=== PATIENT | female | born 1950 ===

== ENCOUNTER 2019-02-25 21:24 | Inpatient (IN) | payer MEDICARE, BC ==
[~2019-02-25] VITALS: Ht 162.6 cm; Wt 78.0 kg
[~2019-02-25 21:24] MED LIST: ACTOS45 MG ORAL; ASPIRIN81 MG ORAL; BUPROPION XL150 MG ORAL; CEPHALEXIN500 M1 ORAL; CRANBERRY500 M2 PO; CRESTOR10 M1 ORAL; CYMBALTA60 MG ORAL; DIAZEPAM10 MG ORAL; GLIPIZIDE5 MG ORAL; HYDROCORTISONE 10 MG; METFORMIN HCL1000 M1 ORAL; METHOTREXATE2.5 MG PO; METOPROLOL SUC100 MG ORAL; OMEPRAZOLE40 M1 ORAL; PRIMIDONE50 MG PO
--- NOTE | 2019-02-25 23:45 | NUR ---
NURSE NOTES: Pt arrived in the unit. AAOX4. Able to make needs known. On room air. No respiratory distress. C/O R knee pain, rated 7/10. Will give pain med once there's an order. IV site is patent and intact. Belongings checked and with the pt. Skin is intact. Bed in lowest position. Bed alarm is on. Call light within reach. Will continue to monitor.
[2019-02-26] VITALS (7 sets, daily range): BP systolic 102–154; BP diastolic 59–84
--- NOTE | 2019-02-26 00:30 | NUR ---
NURSE NOTES: Contacted Dr. Villanueva for admission orders. Left a voicemail. Waiting for a call back. Charge Nurse Theresa made aware.
[2019-02-26] MEDS ORDERED: GLIPIZIDE5 MG ORAL (00:39)
[2019-02-26] MEDS ORDERED: PLAVIX75 MG ORAL (00:39)
[2019-02-26] MEDS ORDERED: MAGNESIUM OXID400 M2 PO (00:39)
[2019-02-26] MEDS ORDERED: SENNA8.6 M2 PO (00:39)
[2019-02-26] MEDS ORDERED: ATORVASTATIN CA40 MG ORAL (00:39)
[2019-02-26] MEDS ORDERED: OMEPRAZOLE40 M1 ORAL (00:39)
[2019-02-26] MEDS ORDERED: POTASSIUM99 M2 PO (00:39)
[2019-02-26] MEDS ORDERED: PROZAC40 MG ORAL (00:39)
[2019-02-26] MEDS ORDERED: METFORMIN HCL1000 M1 ORAL (00:39)
[2019-02-26] MEDS ORDERED: FOLIC ACID1 MG ORAL (00:39)
[2019-02-26] MEDS ORDERED: LOSARTAN POTASS50 MG ORAL (00:39)
[2019-02-26] MEDS ORDERED: METHOTREXATE2.5 MG PO (00:39)
[2019-02-26] MEDS ORDERED: METHENAMINE1 GM MC (00:39)
[2019-02-26] MEDS ORDERED: GABAPENTIN300 MG ORAL (00:39)
--- NOTE | 2019-02-26 04:00 | NUR ---
NURSE NOTES: Cooling measures provided.
--- NOTE | 2019-02-26 04:20 | NUR ---
NURSE NOTES: Informed Roselia, the nursing cheese supervisor, that there's no admission orders yet from Dr. Villanueva. Perlita SANTOYO called Dr. Villanueva again, still no response. Charge Nurse Theresa made aware.
[2019-02-26] MEDS ORDERED: HYDROcodone/Acetamin 5/325 tab ORAL PRN (05:15)
[2019-02-26] MEDS: NovoLOG Insulin Flexpen SUBQ SCH ×4 (06:52→21:00)
--- NOTE | 2019-02-26 07:12 | NUR ---
HAND-OFF: Report given to YARELIS Orona.
--- NOTE | 2019-02-26 08:09 | NUR ---
NURSE NOTES: Patient is awake ,alert and oriented,respirations unlabored,patient states no pain but no appetite at this time.Breakfast at bedside,will monitor.Call light within reach,bed alarm is on.
[2019-02-26] MEDS ORDERED: metFORMIN 500mg tab ORAL SCH (09:00)
[2019-02-26] MEDS: Heparin 5000 units/ml inj SUBQ SCH ×2 (09:00→21:00)
[2019-02-26] MEDS ORDERED: GlipiZIDE 5mg tab ORAL SCH (09:00)
[2019-02-26 09:02] LABS: BASOPHILS % (AUTO) 0.9 % (0.0-2.0); LYMPHOCYTES % (AUTO) 32.1 % (20.0-45.0); MEAN CORPUSCULAR VOLUME 83 FL (80-99); MONOCYTES % (AUTO) 14.5 % (1.0-10.0); NEUTROPHILS % (AUTO) 49.5 % (45.0-75.0); PLATELET COUNT 139 K/UL (150-450); RED BLOOD COUNT 4.96 M/UL (4.20-5.40); RED CELL DISTRIBUTION WIDTH 20.1 % (11.6-14.8); WHITE BLOOD COUNT 7.1 K/UL (4.8-10.8)
[2019-02-26 09:10] LABS: INR 1.1 (0.9-1.1)
[2019-02-26 09:11] LABS: ANION GAP 11 mmol/L (5-15); BLOOD UREA NITROGEN 13 mg/dL (7-18); CALCIUM 8.1 MG/DL (8.5-10.1); CARBON DIOXIDE 26 MMOL/L (21-32); CHLORIDE 98 MMOL/L (98-107); PHOSPHORUS 3.6 MG/DL (2.5-4.9); POTASSIUM 3.1 MMOL/L (3.5-5.1); SODIUM 135 MMOL/L (136-145)
[2019-02-26] MEDS: cefTRIAXone 1 GM in D5W 55 ML IVPB SCH (09:24)
[2019-02-26] MEDS: Losartan 50mg tab ORAL SCH (09:25)
--- NOTE | 2019-02-26 09:31 | NUR ---
CHARGE NURSE NOTE: K-3.1. was called, message left.
[2019-02-26 11:02] LABS: APPEARANCE,URINE CLEAR; BILIRUBIN, URINE NEGATIVE (NEGATIVE); GLUCOSE, URINE (UA) NEGATIVE (NEGATIVE); KETONES,URINE 2+ (NEGATIVE); LEUKOCYTE ESTERASE ,URINE 3+ (NEGATIVE); NITRITE,URINE NEGATIVE (NEGATIVE); PH,URINE 5 (4.5-8.0); PROTEIN,URINE 2+ (NEGATIVE); UROBILINOGEN,URINE NORMAL MG/DL (0.0-1.0)
[2019-02-26 11:09] LABS: COLOR,URINE YELLOW
--- NOTE | 2019-02-26 13:06 | Consultation ---
History of Present Illness General Date patient seen: Feb 27, 2019 Present Illness HPI 68 yo female with Hx of hypopituthyroidsm, severe RA, ( on methotrexate) HTN and DM who transferred from [place] with CC of poor appetite and nausea and vomiting. Pt c/o increased weakness and dysuria. She thinks she might have another episode of UTI. Allergies: Coded Allergies: LATEX (Verified Allergy, Intermediate, 02/26/19) Medication History Scheduled Aspirin* (Aspirin*), 81 MG ORAL DAILY, (Reported) Atorvastatin Calcium* (Atorvastatin Calcium*), 40 MG ORAL BEDTIME, (Reported) Bupropion Xl* (Bupropion Xl*), 300 MG ORAL DAILY, (Reported) Cephalexin* (Cephalexin*), 500 MG ORAL EVERY 6 HOURS, (Reported) Clopidogrel Bisulfate* (Plavix*), 75 MG ORAL DAILY, (Reported) Cranberry (Cranberry), 3,600 MG PO DAILY, (Reported) Diazepam* (Diazepam*), 5 MG ORAL EVERY 12 HOURS, (Reported) Duloxetine Hcl* (Cymbalta*), 60 MG ORAL DAILY, (Reported) Fluoxetine Hcl* (Prozac*), 40 MG ORAL DAILY, (Reported) Folic Acid* (Folic Acid*), 1 MG ORAL DAILY, (Reported) Gabapentin* (Gabapentin*), 300 MG ORAL BEDTIME, (Reported) Glipizide* (Glipizide*), 2.5 MG ORAL DAILY, (Reported) Glipizide* (Glipizide*), 5 MG ORAL BIDAC, (Reported) Hydrocortisone Tablet (Hydrocortisone), 10 MG PO BEDTIME, (Reported) Losartan Potassium* (Losartan Potassium*), 50 MG ORAL DAILY, (Reported) Magnesium Oxide (Magnesium Oxide), 200 MG PO DAILY, (Reported) Metformin Hcl* (Metformin Hcl*), 1,000 MG ORAL BID, (Reported) Metformin Hcl* (Metformin Hcl*), 1,000 MG ORAL BID, (Reported) Methenamine (Methenamine), 1 GM MC BID, (Reported) Methotrexate Sodium* (Methotrexate*), 2.5 MG PO wednesday, (Reported) Metoprolol Succinate* (Metoprolol Succinate*), 100 MG ORAL DAILY, (Reported) Omeprazole (Omeprazole), 40 MG ORAL DAILY, (Reported) Omeprazole (Omeprazole), 40 MG ORAL DAILY, (Reported) Pioglitazone Hcl* (Actos*), 45 MG ORAL DAILY, (Reported) Potassium (Potassium), 99 MG PO DAILY, (Reported) Primidone* (Mysoline*), 50 MG PO DAILY, (Reported) Rosuvastatin Calcium (Crestor), 10 MG ORAL DAILY, (Reported) Sennosides (Senna), 8.6 MG PO NEEDED, (Reported) Miscellaneous Medications Methotrexate Sodium* (Methotrexate*), 2.5 MG PO, (Reported) [hydrocortisone 10 mg], (Reported) Patient History Healthcare decision maker Resuscitation status Full Code Advanced Directive on File No Past Medical/Surgical History Past Medical/Surgical History: (1) Rheumatoid arthritis (2) Hypopituitarism Review of Systems All Other Systems: negative except mentioned in HPI Physical Exam General Appearance: WD/WN, no apparent distress Lines, tubes and drains: peripheral HEENT: normocephalic, atraumatic Neck: non-tender, normal alignment Respiratory/Chest: chest wall non-tender, lungs clear Cardiovascular/Chest: normal peripheral pulses, normal rate Abdomen: normal bowel sounds, non tender Genitourinary/Rectal: normal genital exam, normal rectal exam Extremities: normal range of motion, non-tender Skin Exam: normal pigmentation Neurologic: no motor/sensory deficits Last 24 Hour Vital Signs Date Time Temp Pulse Resp B/P (MAP) Pulse Ox O2 Delivery O2 Flow Rate FiO2 02/26/19 12:24 98.1 91 16 115/59 (77) 91 02/26/19 09:25 136/78 02/26/19 09:15 91 136/78 (97) 02/26/19 09:00 Room Air 02/26/19 08:36 98.6 106 18 116/77 (90) 96 02/26/19 04:00 100.5 94 20 154/84 (107) 100 02/26/19 01:12 Room Air 02/26/19 00:00 98.4 91 20 142/76 (98) 98 Intake and Output 02/25/19 02/26/19 18:59 06:59 Intake Total 240 ml Balance 240 ml Intake Oral 240 ml Laboratory Tests Test 02/26/19 08:40 02/26/19 09:50 White Blood Count 7.1 K/UL (4.8-10.8) Red Blood Count 4.96 M/UL (4.20-5.40) Hemoglobin 13.0 G/DL (12.0-16.0) Hematocrit 41.0 % (37.0-47.0) Mean Corpuscular Volume 83 FL (80-99) Mean Corpuscular Hemoglobin 26.1 PG (27.0-31.0) L Mean Corpuscular Hemoglobin Concent 31.6 G/DL (32.0-36.0) L Red Cell Distribution Width 20.1 % (11.6-14.8) H Platelet Count 139 K/UL (150-450) L Mean Platelet Volume 9.6 FL (6.5-10.1) Neutrophils (%) (Auto) 49.5 % (45.0-75.0) Lymphocytes (%) (Auto) 32.1 % (20.0-45.0) Monocytes (%) (Auto) 14.5 % (1.0-10.0) H Eosinophils (%) (Auto) 3.0 % (0.0-3.0) Basophils (%) (Auto) 0.9 % (0.0-2.0) Prothrombin Time 11.5 SEC (9.30-11.50) Prothromb Time International Ratio 1.1 (0.9-1.1) Activated Partial Thromboplast Time 31 SEC (23-33) Sodium Level 135 MMOL/L (136-145) L Potassium Level 3.1 MMOL/L (3.5-5.1) L Chloride Level 98 MMOL/L (98-107) Carbon Dioxide Level 26 MMOL/L (21-32) Anion Gap 11 mmol/L (5-15) Blood Urea Nitrogen 13 mg/dL (7-18) Creatinine 1.0 MG/DL (0.55-1.30) Estimat Glomerular Filtration Rate 54.8 mL/min (>60) Glucose Level 116 MG/DL (74-106) H Hemoglobin A1c 7.1 % (4.3-6.0) H Calcium Level 8.1 MG/DL (8.5-10.1) L Phosphorus Level 3.6 MG/DL (2.5-4.9) Magnesium Level 1.3 MG/DL (1.8-2.4) L Urine Color Yellow Urine Appearance Clear Urine pH 5 (4.5-8.0) Urine Specific [place] 1.015 (1.005-1.035) Urine Protein 2+ (NEGATIVE) H Urine Glucose (UA) Negative (NEGATIVE) Urine Ketones 2+ (NEGATIVE) H Urine Blood 1+ (NEGATIVE) H Urine Nitrite Negative (NEGATIVE) Urine Bilirubin Negative (NEGATIVE) Urine Urobilinogen Normal MG/DL (0.0-1.0) Urine Leukocyte Esterase 3+ (NEGATIVE) H Urine RBC 0-2 /HPF (0 - 2) Urine WBC 60-80 /HPF (0 - 2) H Urine Squamous Epithelial Cells Few /LPF (NONE/OCC) Urine Bacteria Moderate /HPF (NONE) H Height (Feet): 5 Height (Inches): 4.00 Weight (Pounds): 172 Medications Current Medications Medications (Trade) Dose Ordered Sig/Fortino Route PRN Reason Start Time Stop Time Status Last Admin Dose Admin Acetaminophen (Tylenol) 650 mg Q6H PRN ORAL Mild Pain/Temp > 100.5 02/26/19 05:15 03/28/19 05:14 Acetaminophen/ Hydrocodone Bitart ([place] 5/325) 1 tab Q6H PRN ORAL For Pain 02/26/19 05:15 03/05/19 05:14 Atorvastatin Calcium (Lipitor) 40 mg BEDTIME ORAL 02/26/19 21:00 03/28/19 20:59 Ceftriaxone Sodium 1 gm/ Dextrose 55 ml @ 110 mls/hr Q24H IVPB 02/26/19 08:00 03/05/19 07:59 02/26/19 09:24 Clopidogrel Bisulfate (Plavix) 75 mg DAILY ORAL 02/26/19 09:00 03/28/19 08:59 02/26/19 09:25 Dextrose (Dextrose 50%) 25 ml Q30M PRN IV Hypoglycemia 02/26/19 05:45 03/28/19 05:44 Fluoxetine HCl (PROzac) 40 mg DAILY ORAL 02/26/19 09:00 03/28/19 08:59 02/26/19 09:25 Folic Acid (Folate) 1 mg DAILY ORAL 02/26/19 09:00 03/28/19 08:59 02/26/19 09:25 Gabapentin (Neurontin) 300 mg BEDTIME ORAL 02/26/19 21:00 03/28/19 20:59 Glipizide (Glucotrol) 5 mg BID ORAL 02/26/19 09:00 03/28/19 08:59 Heparin Sodium (Porcine) (Heparin 5000 units/ml) 5,000 units EVERY 12 HOURS SUBQ 02/26/19 09:00 03/28/19 08:59 Insulin Aspart (NovoLOG) BEFORE MEALS AND HS SUBQ 02/26/19 06:30 03/28/19 06:29 02/26/19 06:52 Losartan Potassium (Cozaar) 50 mg DAILY ORAL 02/26/19 09:00 03/28/19 08:59 02/26/19 09:25 Metformin HCl (Glucophage) 1,000 mg BID ORAL 02/26/19 09:00 03/28/19 08:59 Methotrexate (metHOTREXate) 2.5 mg ONCE A WEEK ORAL 02/28/19 09:00 03/28/19 09:01 Ondansetron HCl (Zofran) 4 mg Q4HR PRN IVP Nausea & Vomiting 02/26/19 05:15 03/28/19 05:14 Assessment/Plan Problem List: (1) Refractory nausea and vomiting ICD Codes: R11.2 - Nausea with vomiting, unspecified SNOMED: 27740153 (2) Hypopituitarism ICD Codes: E23.0 - Hypopituitarism SNOMED: 61438136 (3) UTI (lower urinary tract infection) ICD Codes: N39.0 - UTI (lower urinary tract infection) SNOMED: 1822217 (4) Rheumatoid arthritis ICD Codes: M06.9 - Rheumatoid arthritis, unspecified SNOMED: 63703146 (5) DM (diabetes mellitus) ICD Codes: E11.9 - DM (diabetes mellitus) SNOMED: 89668004 Assessment/Plan IV fluids IV abx symptomatic treatment check electrolytes endocrinology to see sliding scale diabetic diet Jesu Griffin MD Feb 26, 2019 13:06
--- NOTE | 2019-02-26 16:45 | NUR ---
NURSE NOTES: Patient has some slight nausea, Zofran 4mg was given at 1353,patient does not have appetite.patient only taking Po liquids, ,patient blood sugar 138mg/DL patient does not want Insulin ,insulin not given.
--- NOTE | 2019-02-26 17:42 | History & Physical ---
History and Physical History & Physicial Dictated [facility]-Dr Villanueva no. [id number]. Davy Thompson MD Feb 26, 2019 17:42
--- NOTE | 2019-02-26 18:30 | History and Physical Report ---
DATE OF ADMISSION: 02/25/2019 CHIEF COMPLAINT: The patient is a 68-year-old white female, presents with chief complaint of increased urinary frequency and urgency. HISTORY OF PRESENT ILLNESS: The patient states she has had several urinary tract infections over the last two years. The patient states she has been treated with several antibiotics in the past. History of present illness began on Sunday, February 24, 2019. The patient began to experience increased frequency of urination. The patient also had urgency. The patient states if she does not make the bathroom in time, she urinates on herself. The patient presented initially to [facility] emergency room. The patient was found to have urinary tract infection. The patient is transferred to [facility] for insurance purposes. The patient is admitted for urinary tract infection to rule out pyelonephritis. REVIEW OF SYSTEMS: CONSTITUTIONAL: The patient complains of subjective fevers and chills. The patient denies weight loss or weight gain. HEENT: The patient denies ear or throat pain. The patient denies headache. CARDIOVASCULAR: The patient denies palpitations or chest pain. CHEST: The patient denies wheeze or shortness of breath. ABDOMEN: The patient denies nausea, vomiting, diarrhea, or constipation. GENITOURINARY: The patient denies dysuria. The patient complains of increased frequency of urination and urgency as above. The patient denies dysuria. NEUROMUSCULAR: The patient denies seizures or generalized weakness. PAST MEDICAL HISTORY: Significant for: 1. Type 2 diabetes. 2. Hypertension. PAST SURGICAL HISTORY: The patient denies. CURRENT MEDICATIONS: 1. Aspirin 81 mg p.o. daily. 2. Atorvastatin 40 mg p.o. daily. 3. Bupropion XL 300 mg p.o. daily. 4. Clopidogrel 75 mg p.o. daily. 5. Diazepam 10 mg p.o. twice daily. 6. Cymbalta 60 mg p.o. daily. 7. Prozac 40 mg p.o. daily. 8. Folic acid 1 mg p.o. daily. 9. Gabapentin 300 mg p.o. at bedtime. 10. Glipizide 2.5 mg p.o. daily. 11. Glipizide 5 mg p.o. twice daily. 12. Losartan 50 mg p.o. daily. 13. Magnesium oxide 200 mg p.o. daily. 14. Metformin 1000 mg p.o. twice daily. 15. Methenamine 1 gram by p.o. twice daily. 16. Methotrexate 2.5 mg six tablets p.o. weekly. 17. Metoprolol 100 mg p.o. daily. 18. Omeprazole 40 mg p.o. daily. 19. Actos 45 mg p.o. daily. 20. Potassium chloride 20 mEq p.o. p.o. daily. 21. Primidone 50 mg p.o. daily. 22. Rosuvastatin 10 mg p.o. daily. ALLERGIES: To latex. SOCIAL HISTORY: The patient is a and lives alone. The patient denies tobacco or alcohol use. PHYSICAL EXAMINATION: VITAL SIGNS: Temperature 100.7, pulse 104, blood pressure 126/66, and respirations 16. GENERAL: The patient well-developed, well-nourished white female, in no apparent distress. HEENT: Eyes, pupils equal and responsive to light and accommodation. Extraocular movements are intact. NECK: Supple without lymphadenopathy. CHEST: Lungs are clear to auscultation bilaterally without wheezes or rales. CARDIOVASCULAR: Regular rhythm and rate. S1-S2 are normal without murmurs, rubs, or gallops. ABDOMEN: Soft, nontender, and nondistended. Positive bowel sounds. No evidence of hepatosplenomegaly. Currently, no rebound or guarding noted. EXTREMITIES: Negative for clubbing, cyanosis, or edema. RECTAL/GENITAL: Refused. NEUROLOGIC: Cranial nerves II through XII are grossly intact without focal deficits. Motor strength is 5/5 bilaterally. Deep tendon reflexes are 2+ plantar. LABORATORY STUDIES: Urinalysis showed positive nitrites, positive leukocyte esterase with wbc's too numerous to count. WBC 9.6, hemoglobin 14.4, hematocrit 43.0, platelets 157,000. Sodium 132, potassium 3.4, chloride 95, CO2 is 25, creatinine 0.97, BUN 7, and glucose 147. ASSESSMENT: This is a 68-year-old white female. 1. Urinary tract infection. 2. Urinary frequency. 3. Urinary urgency. 4. Diabetes type 2. 5. Hypertension. 6. Hypercholesteremia. TREATMENT: 1. Urinary tract infection/urinary frequency/urgency. The patient has been started empirically on ceftriaxone. Urine culture was taken at [facility]. The patient was started on oral ciprofloxacin at [place]. Continue Rocephin until culture and sensitivity results are known. 2. Diabetes type 2. NovoLog sliding scale has been instituted. 3. Hypertension. Continue losartan as above. 4. Hypercholesterolemia. Continue Crestor as above. Davy Thompson M.D. DR: LISA JOB#: [id number] CC:
--- NOTE | 2019-02-26 19:00 | NUR ---
NURSE NOTES: Patient resting,state she was able to rest after taking the tylenol,patient only wanted to take 1 tablet of the tylenol,one tablet wasted.
--- NOTE | 2019-02-26 19:35 | NUR ---
HAND-OFF: Report given to DRU SANTOYO.
--- NOTE | 2019-02-26 19:35 | NUR ---
NURSE NOTES: Received a report from YARELIS Orona. Pt is sleeping comfortably. On room air. No respiratory distress. No c/o pain/discomfort. IV site is patent and intact. Bed in lowest position. Bed alarm is on. Call light within reach. Will continue to monitor.
--- NOTE | 2019-02-26 20:00 | NUR ---
NURSE NOTES: Perlita SANTOYO contacted Dr. Villanueva to inform him that the pt wants to be transferred to [facility]. Charge Nurse Farida made aware.
[2019-02-26] MEDS ORDERED: HYDROCORTISONE20 MG PO (20:38)
[2019-02-26] MEDS: Atorvastatin 80mg tab ORAL SCH (21:00)
--- NOTE | 2019-02-26 21:58 | NUR ---
NURSE NOTES: Pt refused all of the meds, despite education provided. Pt stated that she will wait to be transferred to [facility] to get her meds. Charge Nurse Farida made aware.
[2019-02-27] VITALS (7 sets, daily range): BP systolic 101–137; BP diastolic 66–82
[2019-02-27] MEDS: NovoLOG Insulin Flexpen SUBQ SCH ×4 (06:24→20:25)
[2019-02-27 07:07] LABS: BASOPHILS % (AUTO) 0.8 % (0.0-2.0); EOSINOPHILS % (AUTO) 3.9 % (0.0-3.0); HEMATOCRIT 39.2 % (37.0-47.0); HEMOGLOBIN 12.8 G/DL (12.0-16.0); LYMPHOCYTES % (AUTO) 30.9 % (20.0-45.0); MEAN CORPUSCULAR VOLUME 83 FL (80-99); MONOCYTES % (AUTO) 11.7 % (1.0-10.0); NEUTROPHILS % (AUTO) 52.8 % (45.0-75.0); PLATELET COUNT 130 K/UL (150-450); RED BLOOD COUNT 4.72 M/UL (4.20-5.40); RED CELL DISTRIBUTION WIDTH 20.1 % (11.6-14.8); WHITE BLOOD COUNT 7.9 K/UL (4.8-10.8)
[2019-02-27 07:12] LABS: ALANINE AMINOTRANSFERASE 32 U/L (12-78); ALBUMIN 2.8 G/DL (3.4-5.0); ALBUMIN/GLOBULIN RATIO 0.7 (1.0-2.7); ALKALINE PHOSPHATASE 93 U/L (46-116); ANION GAP 13 mmol/L (5-15); ASPARTATE AMINO TRANSFERASE 30 U/L (15-37); BLOOD UREA NITROGEN 13 mg/dL (7-18); CALCIUM 8.2 MG/DL (8.5-10.1); CARBON DIOXIDE 23 MMOL/L (21-32); CHLORIDE 97 MMOL/L (98-107); CREATININE 0.9 MG/DL (0.55-1.30); PHOSPHORUS 3.2 MG/DL (2.5-4.9); POTASSIUM 3.8 MMOL/L (3.5-5.1); SODIUM 133 MMOL/L (136-145)
--- NOTE | 2019-02-27 07:26 | NUR ---
HAND-OFF: Report given to YARELIS Orona.
--- NOTE | 2019-02-27 08:20 | NUR ---
NURSE NOTES: Patient is awake and alert,respirations unlabored. patient taking po liquids,still not having much of an appetite..No complaints of pain at this time.Call light within reach,bed alarm is on.
[2019-02-27] MEDS: Losartan 50mg tab ORAL SCH (08:32)
[2019-02-27] MEDS: Heparin 5000 units/ml inj SUBQ SCH ×2 (08:33→19:59)
[2019-02-27] MEDS: cefTRIAXone 1 GM in D5W 55 ML IVPB SCH (08:36)
--- NOTE | 2019-02-27 09:22 | Consultation ---
History of Present Illness General Date patient seen: Feb 27, 2019 Chief Complaint: UTI Reason for Consultation: UTI Present Illness HPI Ms. Harmon is a 68 yo female with pmhx of HTN and DM who transferred from [place] on 02/25/19 with urinary frequency. The patient reports several UTI in the past few years. She describes urinary urgency and incontinence due to not making got the rest room in time. She initially present to [facility] and was Dx with a UTI then was transferred to [facility]. She has been afebrile but reports subjective F/C at home. No Leukocytosis. Urine is growing GNR. She reports that she is being seen by a urologist and a ID MD at [facility]. She was last on abx about 5 days ago. Amoxicillin for UTI. ID consulted for UTI PMHx/PSHx DM HTN SocHx No E/T/D FamHx Not contributory Allergies: Coded Allergies: LATEX (Verified Allergy, Intermediate, 02/26/19) Medication History Scheduled Aspirin* (Aspirin*), 81 MG ORAL DAILY, (Reported) Atorvastatin Calcium* (Atorvastatin Calcium*), 40 MG ORAL BEDTIME, (Reported) Bupropion Xl* (Bupropion Xl*), 300 MG ORAL DAILY, (Reported) Cephalexin* (Cephalexin*), 500 MG ORAL EVERY 6 HOURS, (Reported) Clopidogrel Bisulfate* (Plavix*), 75 MG ORAL DAILY, (Reported) Cranberry (Cranberry), 3,600 MG PO DAILY, (Reported) Diazepam* (Diazepam*), 5 MG ORAL EVERY 12 HOURS, (Reported) Duloxetine Hcl* (Cymbalta*), 60 MG ORAL DAILY, (Reported) Fluoxetine Hcl* (Prozac*), 40 MG ORAL DAILY, (Reported) Folic Acid* (Folic Acid*), 1 MG ORAL DAILY, (Reported) Gabapentin* (Gabapentin*), 300 MG ORAL BEDTIME, (Reported) Glipizide* (Glipizide*), 2.5 MG ORAL DAILY, (Reported) Glipizide* (Glipizide*), 5 MG ORAL BIDAC, (Reported) Hydrocortisone Tablet (Hydrocortisone), 10 MG PO BEDTIME, (Reported) Losartan Potassium* (Losartan Potassium*), 50 MG ORAL DAILY, (Reported) Magnesium Oxide (Magnesium Oxide), 200 MG PO DAILY, (Reported) Metformin Hcl* (Metformin Hcl*), 1,000 MG ORAL BID, (Reported) Metformin Hcl* (Metformin Hcl*), 1,000 MG ORAL BID, (Reported) Methenamine (Methenamine), 1 GM MC BID, (Reported) Methotrexate Sodium* (Methotrexate*), 2.5 MG PO wednesday, (Reported) Metoprolol Succinate* (Metoprolol Succinate*), 100 MG ORAL DAILY, (Reported) Omeprazole (Omeprazole), 40 MG ORAL DAILY, (Reported) Omeprazole (Omeprazole), 40 MG ORAL DAILY, (Reported) Pioglitazone Hcl* (Actos*), 45 MG ORAL DAILY, (Reported) Potassium (Potassium), 99 MG PO DAILY, (Reported) Primidone* (Mysoline*), 50 MG PO DAILY, (Reported) Rosuvastatin Calcium (Crestor), 10 MG ORAL DAILY, (Reported) Sennosides (Senna), 8.6 MG PO NEEDED, (Reported) Miscellaneous Medications Methotrexate Sodium* (Methotrexate*), 2.5 MG PO, (Reported) [hydrocortisone 10 mg], (Reported) Patient History Healthcare decision maker Resuscitation status Full Code Advanced Directive on File No Review of Systems ROS Narrative 12 point ROS negative except as note in the HPI. Physical Exam Last 24 Hour Vital Signs Date Time Temp Pulse Resp B/P (MAP) Pulse Ox O2 Delivery O2 Flow Rate FiO2 02/27/19 08:32 101/66 02/27/19 08:13 97.9 108 101/66 (78) 18 02/27/19 04:00 99.5 108 18 119/70 (86) 96 02/27/19 00:00 98.7 88 18 124/76 (92) 95 02/26/19 21:00 Room Air 02/26/19 20:00 98.8 96 18 102/60 (74) 94 02/26/19 16:13 100.1 91 18 134/81 (98) 95 02/26/19 12:24 98.1 91 16 115/59 (77) 95 02/26/19 09:25 136/78 Intake and Output 02/26/19 02/27/19 19:00 07:00 Intake Total 300 ml 360 ml Output Total 300 ml 300 ml Balance 0 ml 60 ml Intake Oral 300 ml 360 ml Output Urine Total 300 ml 300 ml # Voids 1 Laboratory Tests Test 02/26/19 09:50 02/27/19 06:00 Urine Color Yellow Urine Appearance Clear Urine pH 5 (4.5-8.0) Urine Specific [place] 1.015 (1.005-1.035) Urine Protein 2+ (NEGATIVE) H Urine Glucose (UA) Negative (NEGATIVE) Urine Ketones 2+ (NEGATIVE) H Urine Blood 1+ (NEGATIVE) H Urine Nitrite Negative (NEGATIVE) Urine Bilirubin Negative (NEGATIVE) Urine Urobilinogen Normal MG/DL (0.0-1.0) Urine Leukocyte Esterase 3+ (NEGATIVE) H Urine RBC 0-2 /HPF (0 - 2) Urine WBC 60-80 /HPF (0 - 2) H Urine Squamous Epithelial Cells Few /LPF (NONE/OCC) Urine Bacteria Moderate /HPF (NONE) H White Blood Count 7.9 K/UL (4.8-10.8) Red Blood Count 4.72 M/UL (4.20-5.40) Hemoglobin 12.8 G/DL (12.0-16.0) Hematocrit 39.2 % (37.0-47.0) Mean Corpuscular Volume 83 FL (80-99) Mean Corpuscular Hemoglobin 27.1 PG (27.0-31.0) Mean Corpuscular Hemoglobin Concent 32.7 G/DL (32.0-36.0) Red Cell Distribution Width 20.1 % (11.6-14.8) H Platelet Count 130 K/UL (150-450) L Mean Platelet Volume 9.5 FL (6.5-10.1) Neutrophils (%) (Auto) 52.8 % (45.0-75.0) Lymphocytes (%) (Auto) 30.9 % (20.0-45.0) Monocytes (%) (Auto) 11.7 % (1.0-10.0) H Eosinophils (%) (Auto) 3.9 % (0.0-3.0) H Basophils (%) (Auto) 0.8 % (0.0-2.0) Erythrocyte Sedimentation Rate 32 MM/HR (0-30) H Sodium Level 133 MMOL/L (136-145) L Potassium Level 3.8 MMOL/L (3.5-5.1) Chloride Level 97 MMOL/L (98-107) L Carbon Dioxide Level 23 MMOL/L (21-32) Anion Gap 13 mmol/L (5-15) Blood Urea Nitrogen 13 mg/dL (7-18) Creatinine 0.9 MG/DL (0.55-1.30) Estimat Glomerular Filtration Rate > 60 mL/min (>60) Glucose Level 129 MG/DL (74-106) H Calcium Level 8.2 MG/DL (8.5-10.1) L Phosphorus Level 3.2 MG/DL (2.5-4.9) Magnesium Level 1.3 MG/DL (1.8-2.4) L Total Bilirubin 1.0 MG/DL (0.2-1.0) Aspartate Amino Transf (AST/SGOT) 30 U/L (15-37) Alanine Aminotransferase (ALT/SGPT) 32 U/L (12-78) Alkaline Phosphatase 93 U/L (46-116) C-Reactive Protein, Quantitative 11.5 mg/dL (0.00-0.90) H Pro-B-Type Natriuretic Peptide 77 pg/mL (0-125) Total Protein 7.0 G/DL (6.4-8.2) Albumin 2.8 G/DL (3.4-5.0) L Globulin 4.2 g/dL Albumin/Globulin Ratio 0.7 (1.0-2.7) L Microbiology Date/Time Source Procedure Growth Status 02/26/19 09:50 Urine,Clean Catch Urine Culture - Preliminary Gram Negative Bacillus 1 Resulted Height (Feet): 5 Height (Inches): 4.00 Weight (Pounds): 172 Medications Current Medications Medications (Trade) Dose Ordered Sig/Fortino Route PRN Reason Start Time Stop Time Status Last Admin Dose Admin Acetaminophen (Tylenol) 650 mg Q6H PRN ORAL Mild Pain/Temp > 100.5 02/26/19 05:15 03/28/19 05:14 02/27/19 05:47 Acetaminophen/ Hydrocodone Bitart ([place] 5/325) 1 tab Q6H PRN ORAL For Pain 02/26/19 05:15 03/05/19 05:14 Atorvastatin Calcium (Lipitor) 40 mg BEDTIME ORAL 02/26/19 21:00 03/28/19 20:59 Ceftriaxone Sodium 1 gm/ Dextrose 55 ml @ 110 mls/hr Q24H IVPB 02/26/19 08:00 03/05/19 07:59 4/8/19 08:36 Clopidogrel Bisulfate (Plavix) 75 mg DAILY ORAL 02/26/19 09:00 03/28/19 08:59 02/27/19 08:45 Dextrose (Dextrose 50%) 25 ml Q30M PRN IV Hypoglycemia 02/26/19 05:45 03/28/19 05:44 Fluoxetine HCl (PROzac) 40 mg DAILY ORAL 02/26/19 09:00 03/28/19 08:59 02/27/19 08:45 Folic Acid (Folate) 1 mg DAILY ORAL 02/26/19 09:00 03/28/19 08:59 02/27/19 08:45 Gabapentin (Neurontin) 300 mg BEDTIME ORAL 02/26/19 21:00 03/28/19 20:59 Heparin Sodium (Porcine) (Heparin 5000 units/ml) 5,000 units EVERY 12 HOURS SUBQ 02/26/19 09:00 03/28/19 08:59 Hydrocortisone (Cortef) 10 mg BEDTIME ORAL 02/26/19 21:30 03/28/19 21:29 Insulin Aspart (NovoLOG) BEFORE MEALS AND HS SUBQ 02/26/19 06:30 03/28/19 06:29 02/26/19 06:52 Losartan Potassium (Cozaar) 50 mg DAILY ORAL 02/26/19 09:00 03/28/19 08:59 02/26/19 09:25 Methotrexate (metHOTREXate) 2.5 mg ONCE A WEEK ORAL 02/28/19 09:00 03/28/19 09:01 Ondansetron HCl (Zofran) 4 mg Q4HR PRN IVP Nausea & Vomiting 02/26/19 05:15 03/28/19 05:14 02/26/19 13:53 Objective Narrative Gen: NAD, well appearing, alert HEENT: NCAT, MMM, EOMI, PERRL, No Oral lesion, no scleral icterus NECK: full range of motion, supple, no meningismus, No LAD, No JVD LUNGS: CTAB, No W/C, No Accessory muscle use CARDS: RRR, S1, S2, No M/R/G, ABD: Soft, NT, ND, No R/G, + BS, No HSM, No Masses, Left CVA tenderness : Deferred Ext: C/C/E, Pulses 2+ B/L (DP, Rad): NEURO: A/O x 4, Strength and Sensation Grossly intact PSYCH: Mood/affect normal SKIN: Warm/dry, No rashes Assessment/Plan Assessment/Plan 68 yo female with pmhx of HTN and DM who transferred from [place] on 02/25/19 with urinary frequency. Pyelonephritis - Recurrent UTI Treated multiple time in the past year Fever at home, N/V left CVA tenderness Urine Cx 02/25/19 - GNR No Fever No leukocytosis DM PLAN - Continue ceftriaxone #2/-10 pending Cx - f/u UCx - Monitor CBC and Temps - Bladder scan to look for postvoid residuals - will need to f/u with her Urologist and SUSAN FORTE for recurrent UTI Thank you for this consult. We will continue to follow the patient during this hospitalization. Jamshid Chan MD Feb 27, 2019 09:22
--- NOTE | 2019-02-27 09:58 | Diagnostic Imaging Report ---
Indication: Dyspnea Technique: One view of the chest Comparison: 12/12/2013 Findings: The lungs and pleural spaces are clear. Heart size is normal. The aorta is somewhat tortuous. Patient is rotated to the right. Findings are unchanged Impression: No acute process
--- NOTE | 2019-02-27 10:01 | NUR ---
RADIOLOGY DEPT., CHEST X-RAY DONE.-P.DYE
--- NOTE | 2019-02-27 12:04 | NUR ---
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 Heart size is normal. The aorta is somewhat tortuous. IS:ZOFRAN 4mg CEFTRIAXONE 55ml IVPB PROZAC 40mg PLAVIX 75mg ADMITTED TO MED/SURG DC PLAN: TO BE DETERMINED ON CARE NEEDED
--- NOTE | 2019-02-27 12:30 | Pulmonology Progress Note ---
Assessment/Plan Problems: (1) Refractory nausea and vomiting (2) Hypopituitarism (3) UTI (lower urinary tract infection) (4) Rheumatoid arthritis (5) DM (diabetes mellitus) Assessment/Plan d/w daughter at the bed site IV abx symptomatic treatment check electrolytes endocrinology to see, Dr. Caroline viramontes sliding scale diabetic diet Subjective ROS Limited/Unobtainable: No Constitutional: Reports: no symptoms HEENT: Repors: no symptoms Allergies: Coded Allergies: LATEX (Verified Allergy, Intermediate, 02/26/19) Objective Last 24 Hour Vital Signs Date Time Temp Pulse Resp B/P (MAP) Pulse Ox O2 Delivery O2 Flow Rate FiO2 02/27/19 10:25 Room Air 02/27/19 08:32 101/66 02/27/19 08:13 97.9 108 101/66 (78) 18 02/27/19 04:00 99.5 108 18 119/70 (86) 96 02/27/19 00:00 98.7 88 18 124/76 (92) 95 02/26/19 21:00 Room Air 02/26/19 20:00 98.8 96 18 102/60 (74) 94 02/26/19 16:13 100.1 91 18 134/81 (98) 95 Intake and Output 02/26/19 02/27/19 19:00 07:00 Intake Total 300 ml 360 ml Output Total 300 ml 300 ml Balance 0 ml 60 ml Intake Oral 300 ml 360 ml Output Urine Total 300 ml 300 ml # Voids 1 General Appearance: WD/WN HEENT: normocephalic, anicteric Respiratory/Chest: chest wall non-tender, lungs clear Breasts: no masses Cardiovascular: normal rate Abdomen: soft, non tender Extremities: no clubbing Skin: no lesions Microbiology Date/Time Source Procedure Growth Status 02/26/19 09:50 Urine,Clean Catch Urine Culture - Preliminary Gram Negative Bacillus 1 Resulted Laboratory Tests 02/27/19 06:00: White Blood Count 7.9, Red Blood Count 4.72, Hemoglobin 12.8, Hematocrit 39.2, Mean Corpuscular Volume 83, Mean Corpuscular Hemoglobin 27.1, Mean Corpuscular Hemoglobin Concent 32.7, Red Cell Distribution Width 20.1H, Platelet Count 130L , Mean Platelet Volume 9.5, Neutrophils (%) (Auto) 52.8, Lymphocytes (%) (Auto) 30.9, Monocytes (%) (Auto) 11.7H, Eosinophils (%) (Auto) 3.9H, Basophils (%) ( Auto) 0.8, Erythrocyte Sedimentation Rate 32H, Sodium Level 133L, Potassium Level 3.8, Chloride Level 97L, Carbon Dioxide Level 23, Anion Gap 13, Blood Urea Nitrogen 13, Creatinine 0.9, Estimat Glomerular Filtration Rate > 60, Glucose Level 129H, Calcium Level 8.2L, Phosphorus Level 3.2, Magnesium Level 1.3L, Total Bilirubin 1.0, Aspartate Amino Transf (AST/SGOT) 30, Alanine Aminotransferase (ALT/SGPT) 32, Alkaline Phosphatase 93, C-Reactive Protein, Quantitative 11.5H, Pro-B-Type Natriuretic Peptide 77, Total Protein 7.0, Albumin 2.8L, Globulin 4.2, Albumin/Globulin Ratio 0.7L Current Medications Medications (Trade) Dose Ordered Sig/Fortino Route PRN Reason Start Time Stop Time Status Last Admin Dose Admin Acetaminophen (Tylenol) 650 mg Q6H PRN ORAL Mild Pain/Temp > 100.5 02/26/19 05:15 03/28/19 05:14 02/27/19 05:47 Acetaminophen/ Hydrocodone Bitart ([place] 5/325) 1 tab Q6H PRN ORAL For Pain 02/26/19 05:15 03/05/19 05:14 Atorvastatin Calcium (Lipitor) 40 mg BEDTIME ORAL 02/26/19 21:00 03/28/19 20:59 Ceftriaxone Sodium 1 gm/ Dextrose 55 ml @ 110 mls/hr Q24H IVPB 02/26/19 08:00 03/05/19 07:59 02/27/19 08:36 Clopidogrel Bisulfate (Plavix) 75 mg DAILY ORAL 02/26/19 09:00 03/28/19 08:59 02/27/19 08:45 Dextrose (Dextrose 50%) 25 ml Q30M PRN IV Hypoglycemia 02/26/19 05:45 03/28/19 05:44 Fluoxetine HCl (PROzac) 40 mg DAILY ORAL 02/26/19 09:00 03/28/19 08:59 02/27/19 08:45 Folic Acid (Folate) 1 mg DAILY ORAL 02/26/19 09:00 03/28/19 08:59 02/27/19 08:45 Gabapentin (Neurontin) 300 mg BEDTIME ORAL 02/26/19 21:00 03/28/19 20:59 Heparin Sodium (Porcine) (Heparin 5000 units/ml) 5,000 units EVERY 12 HOURS SUBQ 02/26/19 09:00 03/28/19 08:59 Hydrocortisone (Cortef) 10 mg BEDTIME ORAL 02/26/19 21:30 03/28/19 21:29 Hydrocortisone (Cortef) 10 mg BEFORE BREAKFAST ORAL 02/28/19 06:30 03/30/19 06:29 UNV Insulin Aspart (NovoLOG) BEFORE MEALS AND HS SUBQ 02/26/19 06:30 03/28/19 06:29 02/27/19 12:18 Losartan Potassium (Cozaar) 50 mg DAILY ORAL 02/26/19 09:00 03/28/19 08:59 02/26/19 09:25 Methotrexate (metHOTREXate) 2.5 mg ONCE A WEEK ORAL 02/28/19 09:00 03/28/19 09:01 Ondansetron HCl (Zofran) 4 mg Q4HR PRN IVP Nausea & Vomiting 02/26/19 05:15 03/28/19 05:14 02/26/19 13:53 Jesu Griffin MD Feb 27, 2019 12:30
--- NOTE | 2019-02-27 17:33 | NUR ---
NURSE NOTES: Patient voided 225cc of katherine color urine,bladder scan done as ordered,no urine residual noted at this time.Patient skin warm to touch,temp is 99.9,and patient complain of pain,tylenol 650 mg was given.patient state he has no appetite, state she does not want to eat dinner ,patient blood sugar 168,no insulin was given at this time.
--- NOTE | 2019-02-27 18:05 | NUR ---
NURSE NOTES: Message left for DR Griffin regarding patient poor po intake and urine becoming a darker katherine.Encourage patient to take in more water..Magnesium level 1.3,waiting for call back.
--- NOTE | 2019-02-27 19:25 | NUR ---
HAND-OFF: Report given to Evon SANTOYO.
--- NOTE | 2019-02-27 19:44 | NUR ---
NURSE NOTES: PATIENT IN BED, AWAKE, ALERT, VERBALLY RESPONSIVE. IV IN PLACE. NO COMPLAINTS OF PAIN AT THIS TIME. NO S/S DISTRESS NOTED. BED IN LOWEST POSITION, CALL LIGHT WITHIN REACH, BED ALARM ON. WILL CONTINUE TO MONITOR. Addendum: 02/28/19 at 0722 by BELLA MCELROY RN RN Noted to have swelling on right knee.
[2019-02-27] MEDS: Atorvastatin 80mg tab ORAL SCH (20:23)
--- NOTE | 2019-02-27 20:34 | Internal Med Progress Note ---
Subjective Date of Service: Feb 27, 2019 Physician Name Davy Thompson Attending Physician Dale Villanueva MD Current Medications Medications (Trade) Dose Ordered Sig/Fortino Route PRN Reason Start Time Stop Time Status Last Admin Dose Admin Acetaminophen (Tylenol) 650 mg Q6H PRN ORAL Mild Pain/Temp > 100.5 02/26/19 05:15 03/28/19 05:14 02/27/19 17:12 Acetaminophen/ Hydrocodone Bitart ([place] 5/325) 1 tab Q6H PRN ORAL For Pain 02/26/19 05:15 03/05/19 05:14 Atorvastatin Calcium (Lipitor) 40 mg BEDTIME ORAL 02/26/19 21:00 03/28/19 20:59 02/27/19 20:23 Ceftriaxone Sodium 1 gm/ Dextrose 55 ml @ 110 mls/hr Q24H IVPB 02/26/19 08:00 03/05/19 07:59 02/27/19 08:36 Clopidogrel Bisulfate (Plavix) 75 mg DAILY ORAL 02/26/19 09:00 03/28/19 08:59 02/27/19 08:45 Dextrose (Dextrose 50%) 25 ml Q30M PRN IV Hypoglycemia 02/26/19 05:45 03/28/19 05:44 Fluoxetine HCl (PROzac) 40 mg DAILY ORAL 02/26/19 09:00 03/28/19 08:59 02/27/19 08:45 Folic Acid (Folate) 1 mg DAILY ORAL 02/26/19 09:00 03/28/19 08:59 02/27/19 08:45 Gabapentin (Neurontin) 300 mg BEDTIME ORAL 02/26/19 21:00 03/28/19 20:59 02/27/19 20:23 Heparin Sodium (Porcine) (Heparin 5000 units/ml) 5,000 units EVERY 12 HOURS SUBQ 02/26/19 09:00 03/28/19 08:59 Hydrocortisone (Cortef) 10 mg BEFORE BREAKFAST ORAL 02/28/19 06:30 03/30/19 06:29 Hydrocortisone (Cortef) 20 mg BEDTIME ORAL 02/27/19 21:00 03/28/19 21:29 02/27/19 20:24 Insulin Aspart (NovoLOG) BEFORE MEALS AND HS SUBQ 02/26/19 06:30 03/28/19 06:29 02/27/19 20:25 Losartan Potassium (Cozaar) 50 mg DAILY ORAL 02/26/19 09:00 03/28/19 08:59 02/26/19 09:25 Methotrexate (metHOTREXate) 2.5 mg ONCE A WEEK ORAL 02/28/19 09:00 03/28/19 09:01 Ondansetron HCl (Zofran) 4 mg Q4HR PRN IVP Nausea & Vomiting 02/26/19 05:15 03/28/19 05:14 02/27/19 20:26 Allergies: Coded Allergies: LATEX (Verified Allergy, Intermediate, 02/26/19) ROS Limited/Unobtainable: No Constitutional: Reports: no symptoms HEENT: Reports: no symptoms Cardiovascular: Reports: no symptoms Respiratory: Reports: no symptoms Gastrointestinal/Abdominal: Reports: no symptoms Genitourinary: Reports: burning, frequency, urgency Neurologic/Psychiatric: Reports: no symptoms Subjective 68 YO F admitted with urine frequency, now UTI. Cover for Int Med-DR Villanueva Objective Last Vital Signs Date Time Temp Pulse Resp B/P (MAP) Pulse Ox O2 Delivery O2 Flow Rate FiO2 02/27/19 20:05 98.9 99 18 134/75 (94) 95 02/27/19 10:25 Room Air Laboratory Tests Test 02/27/19 06:00 White Blood Count 7.9 K/UL (4.8-10.8) Red Blood Count 4.72 M/UL (4.20-5.40) Hemoglobin 12.8 G/DL (12.0-16.0) Hematocrit 39.2 % (37.0-47.0) Mean Corpuscular Volume 83 FL (80-99) Mean Corpuscular Hemoglobin 27.1 PG (27.0-31.0) Mean Corpuscular Hemoglobin Concent 32.7 G/DL (32.0-36.0) Red Cell Distribution Width 20.1 % (11.6-14.8) H Platelet Count 130 K/UL (150-450) L Mean Platelet Volume 9.5 FL (6.5-10.1) Neutrophils (%) (Auto) 52.8 % (45.0-75.0) Lymphocytes (%) (Auto) 30.9 % (20.0-45.0) Monocytes (%) (Auto) 11.7 % (1.0-10.0) H Eosinophils (%) (Auto) 3.9 % (0.0-3.0) H Basophils (%) (Auto) 0.8 % (0.0-2.0) Erythrocyte Sedimentation Rate 32 MM/HR (0-30) H Sodium Level 133 MMOL/L (136-145) L Potassium Level 3.8 MMOL/L (3.5-5.1) Chloride Level 97 MMOL/L (98-107) L Carbon Dioxide Level 23 MMOL/L (21-32) Anion Gap 13 mmol/L (5-15) Blood Urea Nitrogen 13 mg/dL (7-18) Creatinine 0.9 MG/DL (0.55-1.30) Estimat Glomerular Filtration Rate > 60 mL/min (>60) Glucose Level 129 MG/DL (74-106) H Calcium Level 8.2 MG/DL (8.5-10.1) L Phosphorus Level 3.2 MG/DL (2.5-4.9) Magnesium Level 1.3 MG/DL (1.8-2.4) L Total Bilirubin 1.0 MG/DL (0.2-1.0) Aspartate Amino Transf (AST/SGOT) 30 U/L (15-37) Alanine Aminotransferase (ALT/SGPT) 32 U/L (12-78) Alkaline Phosphatase 93 U/L (46-116) C-Reactive Protein, Quantitative 11.5 mg/dL (0.00-0.90) H Pro-B-Type Natriuretic Peptide 77 pg/mL (0-125) Total Protein 7.0 G/DL (6.4-8.2) Albumin 2.8 G/DL (3.4-5.0) L Globulin 4.2 g/dL Albumin/Globulin Ratio 0.7 (1.0-2.7) L Microbiology Date/Time Source Procedure Growth Status 02/26/19 09:50 Urine,Clean Catch Urine Culture - Preliminary Gram Negative Bacillus 1 Resulted Intake and Output 02/26/19 02/27/19 18:59 06:59 Intake Total 300 ml 360 ml Output Total 300 ml 300 ml Balance 0 ml 60 ml Intake Oral 300 ml 360 ml Output Urine Total 300 ml 300 ml # Voids 1 Objective PHYSICAL EXAMINATION: GENERAL: The patient well-developed, well-nourished white female, in no apparent distress. HEENT: Eyes, pupils equal and responsive to light and accommodation. Extraocular movements are intact. NECK: Supple without lymphadenopathy. CHEST: Lungs are clear to auscultation bilaterally without wheezes or rales. CARDIOVASCULAR: Regular rhythm and rate. S1-S2 are normal without murmurs, rubs, or gallops. ABDOMEN: Soft, nontender, and nondistended. Positive bowel sounds. No evidence of hepatosplenomegaly. Currently, no rebound or guarding noted. EXTREMITIES: Negative for clubbing, cyanosis, or edema. RECTAL/GENITAL: Refused. NEUROLOGIC: Cranial nerves II through XII are grossly intact without focal deficits. Motor strength is 5/5 bilaterally. Deep tendon reflexes are 2+ plantar. Assessment/Plan Assessment/Plan ASSESSMENT: This is a 68-year-old white female. 1. Urinary tract infection=gram neg dat 2. Urinary frequency. 3. Urinary urgency. 4. Diabetes type 2. 5. Hypertension. 6. Hypercholesteremia. TREATMENT: 1. Urinary tract infection/urinary frequency/urgency. The patient has been started empirically on ceftriaxone. Await culture ID and Sensitivity. The patient was started on oral ciprofloxacin at [place]. Continue Rocephin until culture and sensitivity results are known. 2. Diabetes type 2. NovoLog sliding scale has been instituted. 3. Hypertension. Continue losartan as above. 4. Hypercholesterolemia. Continue Crestor as above. Davy Thompson MD Feb 27, 2019 20:34
[2019-02-28 03:52] VITALS: BP 119/60
--- NOTE | 2019-02-28 04:50 | NUR ---
NURSE NOTES: Patient's post void residual - 13 ml.
[2019-02-28] MEDS: NovoLOG Insulin Flexpen SUBQ SCH ×4 (06:20→20:58)
--- NOTE | 2019-02-28 06:37 | General Progress Note ---
Assessment/Plan Problem List: (1) DM (diabetes mellitus) ICD Codes: E11.9 - DM (diabetes mellitus) SNOMED: 31222856 (2) UTI (lower urinary tract infection) ICD Codes: N39.0 - UTI (lower urinary tract infection) SNOMED: 4887521 (3) Hypopituitarism ICD Codes: E23.0 - Hypopituitarism SNOMED: 53217555 (4) Rheumatoid arthritis ICD Codes: M06.9 - Rheumatoid arthritis, unspecified SNOMED: 20971575 Assessment/Plan change Cortef to 20 mg am and 10 mg pm - will reduce to maintenance dose of 10 mg am and 5 mg pm once clinically improved resume Metformin and Actos - hold Glipizide for now - continue NISS ac / hs Subjective Allergies: Coded Allergies: LATEX (Verified Allergy, Intermediate, 02/26/19) All Systems: reviewed and negative except above Subjective 68 yo female with Hx of pituitary surgery for [place] many years ago on Cortef 10 mg am and 5 mg pm , severe RA, ( on methotrexate) HTN and DM who transferred from [place] with CC of poor appetite and nausea and vomiting. Pt c/ o increased weakness and dysuria. She thinks she might have another episode of UTI. Her OP diabetic regimen: - Glipizide 5 mg bid - Actos 45 mg daily - Metformin 1000 mg bid Item Value Date Time Bedside Blood Glucose 230 mg/dl H 02/28/19 0620 Bedside Blood Glucose 222 mg/dl H 02/27/195 Bedside Blood Glucose 168 mg/dl H 02/27/19 1703 Bedside Blood Glucose 172 mg/dl H 02/27/19 1218 Objective Last 24 Hour Vital Signs Date Time Temp Pulse Resp B/P (MAP) Pulse Ox O2 Delivery O2 Flow Rate FiO2 02/28/19 03:52 98.3 90 18 119/60 (79) 93 02/27/19 23:52 98.5 95 18 137/82 (100) 94 02/27/19 21:13 Room Air 02/27/19 20:05 98.9 99 18 134/75 (94) 95 02/27/19 17:40 99.9 02/27/19 16:00 98.0 100 121/78 (92) 97 02/27/19 12:00 97.6 104 117/76 (90) 19 02/27/19 10:25 Room Air 02/27/19 08:32 101/66 02/27/19 08:13 97.9 108 101/66 (78) 18 Intake and Output 02/27/19 02/28/19 19:00 07:00 Output Total 225 ml Balance -225 ml Output Urine Total 225 ml Bladder Scan Volume Amount 0 # Voids 1 Height (Feet): 5 Height (Inches): 4.00 Weight (Pounds): 172 General Appearance: no apparent distress Neck: normal alignment Cardiovascular: normal rate Abdomen: normal bowel sounds Edema: no edema noted Arm (L), no edema noted Arm (R), no edema noted Leg (L), no edema noted Leg (R), no edema noted Pedal (L), no edema noted Pedal (R), no edema noted Generalized Objective Current Medications Medications (Trade) Dose Ordered Sig/Fortino Route PRN Reason Start Time Stop Time Status Last Admin Dose Admin Acetaminophen (Tylenol) 650 mg Q6H PRN ORAL Mild Pain/Temp > 100.5 02/26/19 05:15 03/28/19 05:14 02/27/19 17:12 Acetaminophen/ Hydrocodone Bitart ([place] 5/325) 1 tab Q6H PRN ORAL For Pain 02/26/19 05:15 03/05/19 05:14 Atorvastatin Calcium (Lipitor) 40 mg BEDTIME ORAL 02/26/19 21:00 03/28/19 20:59 02/27/19 20:23 Ceftriaxone Sodium 1 gm/ Dextrose 55 ml @ 110 mls/hr Q24H IVPB 02/26/19 08:00 03/05/19 07:59 02/27/19 08:36 Clopidogrel Bisulfate (Plavix) 75 mg DAILY ORAL 02/26/19 09:00 03/28/19 08:59 02/27/19 08:45 Dextrose (Dextrose 50%) 25 ml Q30M PRN IV Hypoglycemia 02/26/19 05:45 03/28/19 05:44 Fluoxetine HCl (PROzac) 40 mg DAILY ORAL 02/26/19 09:00 03/28/19 08:59 02/27/19 08:45 Folic Acid (Folate) 1 mg DAILY ORAL 02/26/19 09:00 03/28/19 08:59 02/27/19 08:45 Gabapentin (Neurontin) 300 mg BEDTIME ORAL 02/26/19 21:00 03/28/19 20:59 Heparin Sodium (Porcine) (Heparin 5000 units/ml) 5,000 units EVERY 12 HOURS SUBQ 02/26/19 09:00 03/28/19 08:59 Hydrocortisone (Cortef) 10 mg BEFORE BREAKFAST ORAL 02/28/19 06:30 03/30/19 06:29 02/28/19 06:19 Hydrocortisone (Cortef) 20 mg BEDTIME ORAL 02/27/19 21:00 03/28/19 21:29 02/27/19 20:24 Insulin Aspart (NovoLOG) BEFORE MEALS AND HS SUBQ 02/26/19 06:30 03/28/19 06:29 02/28/19 06:20 Losartan Potassium (Cozaar) 50 mg DAILY ORAL 02/26/19 09:00 03/28/19 08:59 02/26/19 09:25 Methotrexate (metHOTREXate) 2.5 mg ONCE A WEEK ORAL 02/28/19 09:00 03/28/19 09:01 Ondansetron HCl (Zofran) 4 mg Q4HR PRN IVP Nausea & Vomiting 02/26/19 05:15 03/28/19 05:14 02/27/19 20:26 Seth Velazquez MD Feb 28, 2019 06:37
--- NOTE | 2019-02-28 07:22 | NUR ---
HAND-OFF: Report given to CESILIA Calvin RN.
[2019-02-28 07:30] LABS: BASOPHILS % (AUTO) 0.4 % (0.0-2.0); EOSINOPHILS % (AUTO) 0.8 % (0.0-3.0); HEMOGLOBIN 12.7 G/DL (12.0-16.0); LYMPHOCYTES % (AUTO) 20.4 % (20.0-45.0); MEAN CORPUSCULAR VOLUME 81 FL (80-99); MONOCYTES % (AUTO) 7.8 % (1.0-10.0); NEUTROPHILS % (AUTO) 70.6 % (45.0-75.0); PLATELET COUNT 134 K/UL (150-450); RED BLOOD COUNT 4.69 M/UL (4.20-5.40); RED CELL DISTRIBUTION WIDTH 18.9 % (11.6-14.8); WHITE BLOOD COUNT 6.6 K/UL (4.8-10.8)
[2019-02-28 07:48] LABS: ANION GAP 11 mmol/L (5-15); BLOOD UREA NITROGEN 10 mg/dL (7-18); CALCIUM 8.6 MG/DL (8.5-10.1); CARBON DIOXIDE 26 MMOL/L (21-32); CHLORIDE 100 MMOL/L (98-107); CREATININE 0.8 MG/DL (0.55-1.30); POTASSIUM 3.5 MMOL/L (3.5-5.1); SODIUM 136 MMOL/L (136-145)
[2019-02-28 08:00] VITALS: BP 126/76
[2019-02-28] MEDS: cefTRIAXone 1 GM in D5W 55 ML IVPB SCH (08:16)
[2019-02-28] MEDS: metFORMIN 500mg tab ORAL SCH ×2 (08:17→17:21)
[2019-02-28] MEDS: Losartan 50mg tab ORAL SCH (08:17)
--- NOTE | 2019-02-28 08:27 | Infectious Diseases Prog Note ---
Assessment/Plan Assessment/Plan 68 yo female with pmhx of HTN and DM who transferred from [place] on 02/25/19 with urinary frequency. Pyelonephritis - Recurrent UTI Treated multiple time in the past year Fever at home, N/V left CVA tenderness Urine Cx 02/25/19 - GNR No Fever No leukocytosis DM PLAN - Start Ertapenem 1g Qday #1/-10 - 02/28/19 SP ceftriaxone #3 - Monitor CBC and Temps - Bladder scan to look for postvoid residuals - Will need to f/u with her Urologist and ID MD for recurrent UTI We will continue to follow the patient during this hospitalization. Subjective Allergies: Coded Allergies: LATEX (Verified Allergy, Intermediate, 02/26/19) Subjective Afebrile Urine Cx growing ESBL E.coli No leukocytosis Objective Vital Signs Last 24 Hour Vital Signs Date Time Temp Pulse Resp B/P (MAP) Pulse Ox O2 Delivery O2 Flow Rate FiO2 02/28/19 08:17 126/76 02/28/19 08:00 98.1 100 18 126/76 (93) 95 02/28/19 03:52 98.3 90 18 119/60 (79) 93 02/27/19 23:52 98.5 95 18 137/82 (100) 94 02/27/19 21:13 Room Air 02/27/19 20:05 98.9 99 18 134/75 (94) 95 02/27/19 17:40 99.9 02/27/19 16:00 98.0 100 121/78 (92) 97 02/27/19 12:00 97.6 104 117/76 (90) 19 02/27/19 10:25 Room Air 02/27/19 08:32 101/66 Height (Feet): 5 Height (Inches): 4.00 Weight (Pounds): 172 Objective Gen: NAD, well appearing, alert HEENT: NCAT, MMM, EOM LUNGS: CTAB, No W CARDS: RRR, S1, S2, No M/R/G, ABD: Soft, NT, ND, + BS Ext: C/C/E, Pulses 2+ B/L (DP, Rad): NEURO: A/O x 4, Strength and Sensation Grossly intact Microbiology Date/Time Source Procedure Growth Status 02/26/19 08:50 Blood Blood Culture - Preliminary NO GROWTH AFTER 24 HOURS Resulted 4/7/19 08:40 Blood Blood Culture - Preliminary NO GROWTH AFTER 24 HOURS Resulted 02/26/19 09:50 Urine,Clean Catch Urine Culture - Final Escherichia Coli - Esbl Complete Laboratory Tests Test 02/28/19 05:53 White Blood Count 6.6 K/UL (4.8-10.8) Red Blood Count 4.69 M/UL (4.20-5.40) Hemoglobin 12.7 G/DL (12.0-16.0) Hematocrit 38.0 % (37.0-47.0) Mean Corpuscular Volume 81 FL (80-99) Mean Corpuscular Hemoglobin 27.1 PG (27.0-31.0) Mean Corpuscular Hemoglobin Concent 33.5 G/DL (32.0-36.0) Red Cell Distribution Width 18.9 % (11.6-14.8) H Platelet Count 134 K/UL (150-450) L Mean Platelet Volume 9.7 FL (6.5-10.1) Neutrophils (%) (Auto) 70.6 % (45.0-75.0) Lymphocytes (%) (Auto) 20.4 % (20.0-45.0) Monocytes (%) (Auto) 7.8 % (1.0-10.0) Eosinophils (%) (Auto) 0.8 % (0.0-3.0) Basophils (%) (Auto) 0.4 % (0.0-2.0) Sodium Level 136 MMOL/L (136-145) Potassium Level 3.5 MMOL/L (3.5-5.1) Chloride Level 100 MMOL/L (98-107) Carbon Dioxide Level 26 MMOL/L (21-32) Anion Gap 11 mmol/L (5-15) Blood Urea Nitrogen 10 mg/dL (7-18) Creatinine 0.8 MG/DL (0.55-1.30) Estimat Glomerular Filtration Rate > 60 mL/min (>60) Glucose Level 211 MG/DL (74-106) H Calcium Level 8.6 MG/DL (8.5-10.1) Current Medications Medications (Trade) Dose Ordered Sig/Fortino Route PRN Reason Start Time Stop Time Status Last Admin Dose Admin Acetaminophen (Tylenol) 650 mg Q6H PRN ORAL Mild Pain/Temp > 100.5 02/26/19 05:15 03/28/19 05:14 02/27/19 17:12 Acetaminophen/ Hydrocodone Bitart ([place] 5/325) 1 tab Q6H PRN ORAL For Pain 02/26/19 05:15 03/05/19 05:14 Atorvastatin Calcium (Lipitor) 40 mg BEDTIME ORAL 02/26/19 21:00 03/28/19 20:59 02/27/19 20:23 Ceftriaxone Sodium 1 gm/ Dextrose 55 ml @ 110 mls/hr Q24H IVPB 02/26/19 08:00 03/05/19 07:59 02/28/19 08:16 Clopidogrel Bisulfate (Plavix) 75 mg DAILY ORAL 02/26/19 09:00 03/28/19 08:59 02/28/19 08:17 Dextrose (Dextrose 50%) 25 ml Q30M PRN IV Hypoglycemia 02/26/19 05:45 03/28/19 05:44 Fluoxetine HCl (PROzac) 40 mg DAILY ORAL 02/26/19 09:00 03/28/19 08:59 02/28/19 08:16 Folic Acid (Folate) 1 mg DAILY ORAL 02/26/19 09:00 03/28/19 08:59 02/28/19 08:16 Gabapentin (Neurontin) 300 mg BEDTIME ORAL 02/26/19 21:00 03/28/19 20:59 Heparin Sodium (Porcine) (Heparin 5000 units/ml) 5,000 units EVERY 12 HOURS SUBQ 02/26/19 09:00 03/28/19 08:59 Hydrocortisone (Cortef) 10 mg BEFORE DINNER ORAL 02/28/19 16:30 03/30/19 06:29 Hydrocortisone (Cortef) 20 mg DAILY ORAL 02/28/19 09:00 03/28/19 21:29 02/28/19 08:17 Insulin Aspart (NovoLOG) BEFORE MEALS AND HS SUBQ 02/26/19 06:30 03/28/19 06:29 02/28/19 06:20 Losartan Potassium (Cozaar) 50 mg DAILY ORAL 02/26/19 09:00 03/28/19 08:59 02/28/19 08:17 Metformin HCl (Glucophage) 1,000 mg BID ORAL 02/28/19 09:00 03/30/19 08:59 02/28/19 08:17 Methotrexate (metHOTREXate) 2.5 mg ONCE A WEEK ORAL 02/28/19 09:00 03/28/19 09:01 02/28/19 08:22 Ondansetron HCl (Zofran) 4 mg Q4HR PRN IVP Nausea & Vomiting 02/26/19 05:15 03/28/19 05:14 02/27/19 20:26 Pioglitazone HCl (Actos) 45 mg ACBREAKFAST ORAL 02/28/19 06:45 03/30/19 06:44 02/28/19 06:51 Jamshid Chan MD Feb 28, 2019 08:27
[2019-02-28] MEDS: Heparin 5000 units/ml inj SUBQ SCH ×2 (09:00→20:52)
[2019-02-28] MEDS: Ertapenem 1 GM in NS 55 ML IVPB SCH (10:21)
--- NOTE | 2019-02-28 10:50 | NUR ---
NURSE NOTES: Received pt from YARELIS BLANCO at 0730. Pt is alert and orient x4. pt is in RA. No SOB or acute respiratory distress noted. pt has intact iv access LH SL. pt is positive for ESBL URINE, Dr JAMES is aware. pt eval done. all needs attended, bed is locked and is in the lowest position. call light within easy reach. will continue to monitor.
[2019-02-28 12:00] VITALS: BP 108/66
--- NOTE | 2019-02-28 12:00 | NUR ---
NURSE NOTES: Pt is coughing, Dr callejas notified, visited pt, order noted and carried out. will continue to monitor.
[2019-02-28] MEDS ORDERED: Promethazine/Codeine 5ml UD ORAL PRN (12:37)
--- NOTE | 2019-02-28 12:55 | Pulmonology Progress Note ---
Assessment/Plan Problems: (1) Refractory nausea and vomiting (2) Hypopituitarism (3) UTI (lower urinary tract infection) (4) Rheumatoid arthritis (5) DM (diabetes mellitus) Assessment/Plan d/w daughter on the phone again IV abx was changed to Ertapenem symptomatic treatment check electrolytes endocrinology note appreciated antitussives sliding scale diabetic diet Subjective ROS Limited/Unobtainable: No Constitutional: Reports: no symptoms HEENT: Repors: no symptoms Allergies: Coded Allergies: LATEX (Verified Allergy, Intermediate, 02/26/19) Objective Last 24 Hour Vital Signs Date Time Temp Pulse Resp B/P (MAP) Pulse Ox O2 Delivery O2 Flow Rate FiO2 02/28/19 12:00 97.4 92 18 108/66 (80) 96 02/28/19 09:00 Room Air 02/28/19 08:17 126/76 02/28/19 08:00 98.1 100 18 126/76 (93) 95 02/28/19 03:52 98.3 90 18 119/60 (79) 93 02/27/19 23:52 98.5 95 18 137/82 (100) 94 02/27/19 21:13 Room Air 02/27/19 20:05 98.9 99 18 134/75 (94) 95 02/27/19 17:40 99.9 02/27/19 16:00 98.0 100 121/78 (92) 97 Intake and Output 02/27/19 02/28/19 19:00 07:00 Intake Total 120 ml Output Total 225 ml Balance -225 ml 120 ml Intake Oral 120 ml Output Urine Total 225 ml Bladder Scan Volume Amount 0 # Voids 1 3 General Appearance: WD/WN Respiratory/Chest: chest wall non-tender, lungs clear Breasts: no masses Cardiovascular: normal rate Abdomen: normal bowel sounds, no organomegaly Extremities: no cyanosis, no clubbing Microbiology Date/Time Source Procedure Growth Status 02/26/19 08:50 Blood Blood Culture - Preliminary NO GROWTH AFTER 24 HOURS Resulted 02/26/19 08:40 Blood Blood Culture - Preliminary NO GROWTH AFTER 24 HOURS Resulted 02/26/19 09:50 Urine,Clean Catch Urine Culture - Final Escherichia Coli - Esbl Complete Laboratory Tests 02/28/19 05:53: White Blood Count 6.6, Red Blood Count 4.69, Hemoglobin 12.7, Hematocrit 38.0, Mean Corpuscular Volume 81, Mean Corpuscular Hemoglobin 27.1, Mean Corpuscular Hemoglobin Concent 33.5, Red Cell Distribution Width 18.9H, Platelet Count 134L , Mean Platelet Volume 9.7, Neutrophils (%) (Auto) 70.6, Lymphocytes (%) (Auto) 20.4, Monocytes (%) (Auto) 7.8, Eosinophils (%) (Auto) 0.8, Basophils (%) (Auto ) 0.4, Sodium Level 136, Potassium Level 3.5, Chloride Level 100, Carbon Dioxide Level 26, Anion Gap 11, Blood Urea Nitrogen 10, Creatinine 0.8, Estimat Glomerular Filtration Rate > 60, Glucose Level 211H, Calcium Level 8.6 Current Medications Medications (Trade) Dose Ordered Sig/Fortion Route PRN Reason Start Time Stop Time Status Last Admin Dose Admin Acetaminophen (Tylenol) 650 mg Q6H PRN ORAL Mild Pain/Temp > 100.5 02/26/19 05:15 03/28/19 05:14 02/27/19 17:12 Acetaminophen/ Hydrocodone Bitart ([place] 5/325) 1 tab Q6H PRN ORAL For Pain 02/26/19 05:15 03/05/19 05:14 Atorvastatin Calcium (Lipitor) 40 mg BEDTIME ORAL 02/26/19 21:00 03/28/19 20:59 02/27/19 20:23 Clopidogrel Bisulfate (Plavix) 75 mg DAILY ORAL 02/26/19 09:00 03/28/19 08:59 02/28/19 08:17 Dextrose (Dextrose 50%) 25 ml Q30M PRN IV Hypoglycemia 02/26/19 05:45 03/28/19 05:44 Ertapenem 1 gm/ Sodium Chloride 55 ml @ 110 mls/hr Q24H IVPB 02/28/19 10:00 03/09/19 09:59 02/28/19 10:21 Fluoxetine HCl (PROzac) 40 mg DAILY ORAL 02/26/19 09:00 03/28/19 08:59 02/28/19 08:16 Folic Acid (Folate) 1 mg DAILY ORAL 02/26/19 09:00 03/28/19 08:59 02/28/19 08:16 Gabapentin (Neurontin) 300 mg BEDTIME ORAL 02/26/19 21:00 03/28/19 20:59 Heparin Sodium (Porcine) (Heparin 5000 units/ml) 5,000 units EVERY 12 HOURS SUBQ 02/26/19 09:00 03/28/19 08:59 Hydrocortisone (Cortef) 10 mg BEFORE DINNER ORAL 02/28/19 16:30 03/30/19 06:29 Hydrocortisone (Cortef) 20 mg DAILY ORAL 02/28/19 09:00 03/28/19 21:29 02/28/19 08:17 Insulin Aspart (NovoLOG) BEFORE MEALS AND HS SUBQ 02/26/19 06:30 03/28/19 06:29 02/28/19 11:41 Losartan Potassium (Cozaar) 50 mg DAILY ORAL 02/26/19 09:00 03/28/19 08:59 02/28/19 08:17 Metformin HCl (Glucophage) 1,000 mg BID ORAL 02/28/19 09:00 03/30/19 08:59 02/28/19 08:17 Methotrexate (metHOTREXate) 2.5 mg ONCE A WEEK ORAL 02/28/19 09:00 03/28/19 09:01 02/28/19 08:22 Ondansetron HCl (Zofran) 4 mg Q4HR PRN IVP Nausea & Vomiting 02/26/19 05:15 03/28/19 05:14 02/27/19 20:26 Pioglitazone HCl (Actos) 45 mg ACBREAKFAST ORAL 02/28/19 06:45 03/30/19 06:44 02/28/19 06:51 Promethazine HCl/ Codeine (Phenergan with Codeine) 5 ml Q6H PRN ORAL For Cough 02/28/19 12:37 03/30/19 12:36 02/28/19 12:41 Jesu Griffin MD Feb 28, 2019 12:55
--- NOTE | 2019-02-28 15:30 | NUR ---
NURSE NOTES: Received fax from [facility] regarding pt has multiple resistance drugs. it is showed to Dr malagon, no new order. will continue to monitor.
--- NOTE | 2019-02-28 15:45 | NUR ---
P.T Note: P.T evaluation completed and treatment initiated. Please refer to P.T evaluation for current functional status. Pt is limited mostly by generalized weakness , deconditioning and R knee pain. Pt currently require MOD A for bed mobilities, MOD A x 1 transfers and MIN A for gait/ambulation activities using the FWW. Skilled P.T service is warranted to improve functional mobility independence and safety during stay. Recommend SNF for short further rehab VS home with P.T depending on progress at [facility]. Thank you for this referral.
[2019-02-28 15:56] VITALS: BP 112/74
[2019-02-28] MEDS: Promethazine/Codeine 5ml UD ORAL PRN ×2 (17:29→21:31)
--- NOTE | 2019-02-28 17:54 | Internal Med Progress Note ---
Subjective Date of Service: Feb 28, 2019 Physician Name Davy Thompson Attending Physician Dale Villanueva MD Current Medications Medications (Trade) Dose Ordered Sig/Fortino Route PRN Reason Start Time Stop Time Status Last Admin Dose Admin Acetaminophen (Tylenol) 650 mg Q6H PRN ORAL Mild Pain/Temp > 100.5 02/26/19 05:15 03/28/19 05:14 02/27/19 17:12 Acetaminophen/ Hydrocodone Bitart ([place] 5/325) 1 tab Q6H PRN ORAL For Pain 02/26/19 05:15 03/05/19 05:14 Atorvastatin Calcium (Lipitor) 40 mg BEDTIME ORAL 02/26/19 21:00 03/28/19 20:59 02/27/19 20:23 Clopidogrel Bisulfate (Plavix) 75 mg DAILY ORAL 02/26/19 09:00 03/28/19 08:59 02/28/19 08:17 Dextrose (Dextrose 50%) 25 ml Q30M PRN IV Hypoglycemia 02/26/19 05:45 03/28/19 05:44 Ertapenem 1 gm/ Sodium Chloride 55 ml @ 110 mls/hr Q24H IVPB 02/28/19 10:00 03/09/19 09:59 02/28/19 10:21 Fluoxetine HCl (PROzac) 40 mg DAILY ORAL 02/26/19 09:00 03/28/19 08:59 02/28/19 08:16 Folic Acid (Folate) 1 mg DAILY ORAL 02/26/19 09:00 03/28/19 08:59 02/28/19 08:16 Gabapentin (Neurontin) 300 mg BEDTIME ORAL 02/26/19 21:00 03/28/19 20:59 Heparin Sodium (Porcine) (Heparin 5000 units/ml) 5,000 units EVERY 12 HOURS SUBQ 02/26/19 09:00 03/28/19 08:59 Hydrocortisone (Cortef) 10 mg BEFORE DINNER ORAL 02/28/19 16:30 03/30/19 06:29 02/28/19 17:21 Hydrocortisone (Cortef) 20 mg DAILY ORAL 02/28/19 09:00 03/28/19 21:29 02/28/19 08:17 Insulin Aspart (NovoLOG) BEFORE MEALS AND HS SUBQ 02/26/19 06:30 03/28/19 06:29 02/28/19 17:22 Losartan Potassium (Cozaar) 50 mg DAILY ORAL 02/26/19 09:00 03/28/19 08:59 02/28/19 08:17 Metformin HCl (Glucophage) 1,000 mg BID ORAL 02/28/19 09:00 03/30/19 08:59 02/28/19 17:21 Methotrexate (metHOTREXate) 2.5 mg ONCE A WEEK ORAL 02/28/19 09:00 03/28/19 09:01 02/28/19 08:22 Ondansetron HCl (Zofran) 4 mg Q4HR PRN IVP Nausea & Vomiting 02/26/19 05:15 03/28/19 05:14 02/27/19 20:26 Pioglitazone HCl (Actos) 45 mg ACBREAKFAST ORAL 02/28/19 06:45 03/30/19 06:44 02/28/19 06:51 Promethazine HCl/ Codeine (Phenergan with Codeine) 5 ml Q4H PRN ORAL For Cough 02/28/19 17:25 03/30/19 17:24 02/28/19 17:29 Allergies: Coded Allergies: LATEX (Verified Allergy, Intermediate, 02/26/19) ROS Limited/Unobtainable: No Constitutional: Reports: no symptoms HEENT: Reports: no symptoms Cardiovascular: Reports: no symptoms Respiratory: Reports: no symptoms Gastrointestinal/Abdominal: Reports: no symptoms Genitourinary: Reports: no symptoms Neurologic/Psychiatric: Reports: no symptoms Subjective 68 YO F admitted with urine frequency, now UTI. Cover for Int Miah-DR Villanueva Objective Last Vital Signs Date Time Temp Pulse Resp B/P (MAP) Pulse Ox O2 Delivery O2 Flow Rate FiO2 02/28/19 15:56 97.5 93 20 112/74 (87) 94 02/28/19 09:00 Room Air Laboratory Tests Test 02/28/19 05:53 White Blood Count 6.6 K/UL (4.8-10.8) Red Blood Count 4.69 M/UL (4.20-5.40) Hemoglobin 12.7 G/DL (12.0-16.0) Hematocrit 38.0 % (37.0-47.0) Mean Corpuscular Volume 81 FL (80-99) Mean Corpuscular Hemoglobin 27.1 PG (27.0-31.0) Mean Corpuscular Hemoglobin Concent 33.5 G/DL (32.0-36.0) Red Cell Distribution Width 18.9 % (11.6-14.8) H Platelet Count 134 K/UL (150-450) L Mean Platelet Volume 9.7 FL (6.5-10.1) Neutrophils (%) (Auto) 70.6 % (45.0-75.0) Lymphocytes (%) (Auto) 20.4 % (20.0-45.0) Monocytes (%) (Auto) 7.8 % (1.0-10.0) Eosinophils (%) (Auto) 0.8 % (0.0-3.0) Basophils (%) (Auto) 0.4 % (0.0-2.0) Sodium Level 136 MMOL/L (136-145) Potassium Level 3.5 MMOL/L (3.5-5.1) Chloride Level 100 MMOL/L (98-107) Carbon Dioxide Level 26 MMOL/L (21-32) Anion Gap 11 mmol/L (5-15) Blood Urea Nitrogen 10 mg/dL (7-18) Creatinine 0.8 MG/DL (0.55-1.30) Estimat Glomerular Filtration Rate > 60 mL/min (>60) Glucose Level 211 MG/DL (74-106) H Calcium Level 8.6 MG/DL (8.5-10.1) Microbiology Date/Time Source Procedure Growth Status 02/26/19 08:50 Blood Blood Culture - Preliminary NO GROWTH AFTER 24 HOURS Resulted 02/26/19 08:40 Blood Blood Culture - Preliminary NO GROWTH AFTER 24 HOURS Resulted 02/26/19 09:50 Urine,Clean Catch Urine Culture - Final Escherichia Coli - Esbl Complete Intake and Output 02/27/19 02/28/19 19:00 07:00 Intake Total 120 ml Output Total 225 ml Balance -225 ml 120 ml Intake Oral 120 ml Output Urine Total 225 ml Bladder Scan Volume Amount 0 # Voids 1 3 Objective PHYSICAL EXAMINATION: GENERAL: The patient well-developed, well-nourished white female, in no apparent distress. HEENT: Eyes, pupils equal and responsive to light and accommodation. Extraocular movements are intact. NECK: Supple without lymphadenopathy. CHEST: Lungs are clear to auscultation bilaterally without wheezes or rales. CARDIOVASCULAR: Regular rhythm and rate. S1-S2 are normal without murmurs, rubs, or gallops. ABDOMEN: Soft, nontender, and nondistended. Positive bowel sounds. No evidence of hepatosplenomegaly. Currently, no rebound or guarding noted. EXTREMITIES: Negative for clubbing, cyanosis, or edema. RECTAL/GENITAL: Refused. NEUROLOGIC: Cranial nerves II through XII are grossly intact without focal deficits. Motor strength is 5/5 bilaterally. Deep tendon reflexes are 2+ plantar. Assessment/Plan Assessment/Plan ASSESSMENT: This is a 68-year-old white female. 1. Urinary tract infection=E.Coli 2. Urinary frequency. 3. Urinary urgency. 4. Diabetes type 2. 5. Hypertension. 6. Hypercholesteremia. TREATMENT: 1. Urinary tract infection/urinary frequency/urgency. Antibiotic=Ertapenem. Await culture ID and Sensitivity. The patient was started on oral ciprofloxacin at [place]. Continue Rocephin until culture and sensitivity results are known. 2. Diabetes type 2. NovoLog sliding scale has been instituted. 3. Hypertension. Continue losartan as above. 4. Hypercholesterolemia. Continue Crestor as above. Davy Thompson MD Feb 28, 2019 17:54
--- NOTE | 2019-02-28 19:24 | NUR ---
NURSE NOTES: Received patient in bed, awake, alert, oriented, no acute distress noted, VSS, afebrile, call light within reach, bed is in low position, locked, and alarm is on. Will continue to monitor for safety and comfort.
--- NOTE | 2019-02-28 19:38 | NUR ---
HAND-OFF: Report given to YARELIS COE.
[2019-02-28 20:00] VITALS: BP 108/66
[2019-02-28] MEDS: Atorvastatin 80mg tab ORAL SCH (20:51)
[2019-03-01] VITALS: BP 103/57
[2019-03-01 04:00] VITALS: BP 133/77
[2019-03-01] MEDS: NovoLOG Insulin Flexpen SUBQ SCH ×5 (06:41→20:18)
--- NOTE | 2019-03-01 06:42 | General Progress Note ---
Assessment/Plan Problem List: (1) DM (diabetes mellitus) ICD Codes: E11.9 - DM (diabetes mellitus) SNOMED: 68958481 (2) UTI (lower urinary tract infection) ICD Codes: N39.0 - UTI (lower urinary tract infection) SNOMED: 0247734 (3) Hypopituitarism ICD Codes: E23.0 - Hypopituitarism SNOMED: 99145677 (4) Rheumatoid arthritis ICD Codes: M06.9 - Rheumatoid arthritis, unspecified SNOMED: 53472993 Assessment/Plan change Cortef to 10 mg am and 5 mg pm - maintenance dose continue Metformin and Actos - hold Glipizide for now - continue NISS ac / hs Subjective Allergies: Coded Allergies: LATEX (Verified Allergy, Intermediate, 02/26/19) All Systems: reviewed and negative except above Subjective events noted Item Value Date Time Bedside Blood Glucose 110 mg/dl 02/28/19 2100 Bedside Blood Glucose 297 mg/dl H 02/28/19 1722 Bedside Blood Glucose 181 mg/dl H 02/28/19 1141 Bedside Blood Glucose 230 mg/dl H 02/28/19 0620 Objective Last 24 Hour Vital Signs Date Time Temp Pulse Resp B/P (MAP) Pulse Ox O2 Delivery O2 Flow Rate FiO2 03/01/19 04:00 97.6 78 18 133/77 (95) 03/01/19 00:00 97.0 60 18 103/57 (72) 02/28/19 21:00 Room Air 02/28/19 20:00 98.3 92 18 108/66 (80) 02/28/19 15:56 97.5 93 20 112/74 (87) 94 02/28/19 12:00 97.4 92 18 108/66 (80) 96 02/28/19 09:00 Room Air 02/28/19 08:17 126/76 02/28/19 08:00 98.1 100 18 126/76 (93) 95 Intake and Output 02/28/19 03/01/19 19:00 07:00 Intake Total 895 ml Balance 895 ml Intake Oral 840 ml IV Total 55 ml # Voids 1 Height (Feet): 5 Height (Inches): 4.00 Weight (Pounds): 172 General Appearance: no apparent distress Neck: normal alignment Cardiovascular: normal peripheral pulses Respiratory/Chest: lungs clear Abdomen: normal bowel sounds Pelvis: normal external exam Edema: no edema noted Arm (L), no edema noted Arm (R), no edema noted Leg (L), no edema noted Leg (R), no edema noted Pedal (L), no edema noted Pedal (R), no edema noted Generalized Objective Current Medications Medications (Trade) Dose Ordered Sig/Fortino Route PRN Reason Start Time Stop Time Status Last Admin Dose Admin Acetaminophen (Tylenol) 650 mg Q6H PRN ORAL Mild Pain/Temp > 100.5 02/26/19 05:15 03/28/19 05:14 02/27/19 17:12 Acetaminophen/ Hydrocodone Bitart ([place] 5/325) 1 tab Q6H PRN ORAL For Pain 02/26/19 05:15 03/05/19 05:14 Atorvastatin Calcium (Lipitor) 40 mg BEDTIME ORAL 02/26/19 21:00 03/28/19 20:59 02/28/19 20:51 Clopidogrel Bisulfate (Plavix) 75 mg DAILY ORAL 02/26/19 09:00 03/28/19 08:59 02/28/19 08:17 Dextrose (Dextrose 50%) 25 ml Q30M PRN IV Hypoglycemia 02/26/19 05:45 03/28/19 05:44 Ertapenem 1 gm/ Sodium Chloride 55 ml @ 110 mls/hr Q24H IVPB 02/28/19 10:00 03/09/19 09:59 02/28/19 10:21 Fluoxetine HCl (PROzac) 40 mg DAILY ORAL 02/26/19 09:00 03/28/19 08:59 02/28/19 08:16 Folic Acid (Folate) 1 mg DAILY ORAL 02/26/19 09:00 03/28/19 08:59 02/28/19 08:16 Gabapentin (Neurontin) 300 mg BEDTIME ORAL 02/26/19 21:00 03/28/19 20:59 02/28/19 20:59 Heparin Sodium (Porcine) (Heparin 5000 units/ml) 5,000 units EVERY 12 HOURS SUBQ 02/26/19 09:00 03/28/19 08:59 02/28/19 20:52 Hydrocortisone (Cortef) 10 mg BEFORE DINNER ORAL 02/28/19 16:30 03/30/19 06:29 02/28/19 17:21 Hydrocortisone (Cortef) 20 mg DAILY ORAL 02/28/19 09:00 03/28/19 21:29 02/28/19 08:17 Insulin Aspart (NovoLOG) BEFORE MEALS AND HS SUBQ 02/26/19 06:30 03/28/19 06:29 02/28/19 17:22 Losartan Potassium (Cozaar) 50 mg DAILY ORAL 02/26/19 09:00 03/28/19 08:59 02/28/19 08:17 Metformin HCl (Glucophage) 1,000 mg BID ORAL 02/28/19 09:00 03/30/19 08:59 02/28/19 17:21 Methotrexate (metHOTREXate) 2.5 mg ONCE A WEEK ORAL 02/28/19 09:00 03/28/19 09:01 02/28/19 08:22 Ondansetron HCl (Zofran) 4 mg Q4HR PRN IVP Nausea & Vomiting 02/26/19 05:15 03/28/19 05:14 02/27/19 20:26 Pioglitazone HCl (Actos) 45 mg ACBREAKFAST ORAL 02/28/19 06:45 03/30/19 06:44 02/28/19 06:51 Promethazine HCl/ Codeine (Phenergan with Codeine) 5 ml Q4H PRN ORAL For Cough 02/28/19 17:25 03/30/19 17:24 02/28/19 21:31 Seth Velazquez MD Mar 01, 2019 06:42
[2019-03-01 07:21] LABS: ANION GAP 8 mmol/L (5-15); BASOPHILS % (AUTO) 0.7 % (0.0-2.0); BLOOD UREA NITROGEN 17 mg/dL (7-18); CALCIUM 8.5 MG/DL (8.5-10.1); CARBON DIOXIDE 28 MMOL/L (21-32); CHLORIDE 103 MMOL/L (98-107); CREATININE 0.8 MG/DL (0.55-1.30); HEMATOCRIT 34.9 % (37.0-47.0); HEMOGLOBIN 11.2 G/DL (12.0-16.0); MEAN CORPUSCULAR VOLUME 83 FL (80-99); MONOCYTES % (AUTO) 9.5 % (1.0-10.0); NEUTROPHILS % (AUTO) 50.7 % (45.0-75.0); PLATELET COUNT 148 K/UL (150-450); POTASSIUM 3.8 MMOL/L (3.5-5.1); RED CELL DISTRIBUTION WIDTH 19.7 % (11.6-14.8); SODIUM 139 MMOL/L (136-145); WHITE BLOOD COUNT 5.4 K/UL (4.8-10.8)
--- NOTE | 2019-03-01 07:29 | NUR ---
HAND-OFF: Report given to Yaakov SANTOYO.
--- NOTE | 2019-03-01 07:29 | NUR ---
NURSE NOTES: RN received pt in stable condition, sleeping in bed. No acute distress or SOB. Bed in low locked position, call light within reach. Will continue plan of care.
[2019-03-01 08:00] VITALS: BP 116/64
[2019-03-01] MEDS: Losartan 50mg tab ORAL SCH (09:50)
[2019-03-01] MEDS: metFORMIN 500mg tab ORAL SCH ×2 (09:51→17:11)
[2019-03-01] MEDS: Heparin 5000 units/ml inj SUBQ SCH ×2 (10:02→20:26)
--- NOTE | 2019-03-01 10:25 | Infectious Diseases Prog Note ---
Assessment/Plan Assessment/Plan 68 yo female with pmhx of HTN and DM who transferred from [place] on 02/25/19 with urinary frequency. Pyelonephritis - Recurrent UTI Treated multiple time in the past year Fever at home, N/V left CVA tenderness Urine Cx 02/25/19 - GNR No Fever No leukocytosis DM PLAN - Continue Ertapenem 1g Qday #2/7 ( End date 03/06/19) - 02/28/19 SP ceftriaxone #3 - Monitor CBC and Temps - Bladder scan to look for postvoid residuals - Will need to f/u with her Urologist and ID MD for recurrent UTI We will continue to follow the patient during this hospitalization. Subjective Allergies: Coded Allergies: LATEX (Verified Allergy, Intermediate, 02/26/19) Subjective Afebrile No leukocytosis ALISE Objective Vital Signs Last 24 Hour Vital Signs Date Time Temp Pulse Resp B/P (MAP) Pulse Ox O2 Delivery O2 Flow Rate FiO2 03/01/19 09:50 116/66 03/01/19 04:00 97.6 78 18 133/77 (95) 03/01/19 00:00 97.0 60 18 103/57 (72) 02/28/19 21:00 Room Air 02/28/19 20:00 98.3 92 18 108/66 (80) 02/28/19 15:56 97.5 93 20 112/74 (87) 94 02/28/19 12:00 97.4 92 18 108/66 (80) 96 Height (Feet): 5 Height (Inches): 4.00 Weight (Pounds): 172 Objective Gen: NAD, well appearing HEENT: NCAT, MMM, EOMI LUNGS: CTAB, No W CARDS: RRR, S1, S2, No M/R/G, ABD: Soft, NT, ND, + BS NEURO: A/O x 4, Strength and Sensation Grossly intact Laboratory Tests Test 03/01/19 06:05 White Blood Count 5.4 K/UL (4.8-10.8) Red Blood Count 4.20 M/UL (4.20-5.40) Hemoglobin 11.2 G/DL (12.0-16.0) L Hematocrit 34.9 % (37.0-47.0) L Mean Corpuscular Volume 83 FL (80-99) Mean Corpuscular Hemoglobin 26.8 PG (27.0-31.0) L Mean Corpuscular Hemoglobin Concent 32.2 G/DL (32.0-36.0) Red Cell Distribution Width 19.7 % (11.6-14.8) H Platelet Count 148 K/UL (150-450) L Mean Platelet Volume 8.6 FL (6.5-10.1) Neutrophils (%) (Auto) 50.7 % (45.0-75.0) Lymphocytes (%) (Auto) 35.0 % (20.0-45.0) Monocytes (%) (Auto) 9.5 % (1.0-10.0) Eosinophils (%) (Auto) 4.0 % (0.0-3.0) H Basophils (%) (Auto) 0.7 % (0.0-2.0) Sodium Level 139 MMOL/L (136-145) Potassium Level 3.8 MMOL/L (3.5-5.1) Chloride Level 103 MMOL/L (98-107) Carbon Dioxide Level 28 MMOL/L (21-32) Anion Gap 8 mmol/L (5-15) Blood Urea Nitrogen 17 mg/dL (7-18) Creatinine 0.8 MG/DL (0.55-1.30) Estimat Glomerular Filtration Rate > 60 mL/min (>60) Glucose Level 154 MG/DL (74-106) H Calcium Level 8.5 MG/DL (8.5-10.1) Current Medications Medications (Trade) Dose Ordered Sig/Fortino Route PRN Reason Start Time Stop Time Status Last Admin Dose Admin Acetaminophen (Tylenol) 650 mg Q6H PRN ORAL Mild Pain/Temp > 100.5 02/26/19 05:15 03/28/19 05:14 02/27/19 17:12 Acetaminophen/ Hydrocodone Bitart ([place] 5/325) 1 tab Q6H PRN ORAL For Pain 02/26/19 05:15 03/05/19 05:14 Atorvastatin Calcium (Lipitor) 40 mg BEDTIME ORAL 02/26/19 21:00 03/28/19 20:59 02/28/19 20:51 Clopidogrel Bisulfate (Plavix) 75 mg DAILY ORAL 02/26/19 09:00 03/28/19 08:59 03/01/19 09:55 Dextrose (Dextrose 50%) 25 ml Q30M PRN IV Hypoglycemia 02/26/19 05:45 03/28/19 05:44 Ertapenem 1 gm/ Sodium Chloride 55 ml @ 110 mls/hr Q24H IVPB 02/28/19 10:00 03/09/19 09:59 02/28/19 10:21 Fluoxetine HCl (PROzac) 40 mg DAILY ORAL 02/26/19 09:00 03/28/19 08:59 03/01/19 09:56 Folic Acid (Folate) 1 mg DAILY ORAL 02/26/19 09:00 03/28/19 08:59 03/01/19 09:53 Gabapentin (Neurontin) 300 mg BEDTIME ORAL 02/26/19 21:00 03/28/19 20:59 02/28/19 20:59 Heparin Sodium (Porcine) (Heparin 5000 units/ml) 5,000 units EVERY 12 HOURS SUBQ 02/26/19 09:00 03/28/19 08:59 03/01/19 10:02 Hydrocortisone (Cortef) 5 mg BEFORE DINNER ORAL 03/01/19 16:30 03/30/19 06:29 Hydrocortisone (Cortef) 10 mg DAILY ORAL 03/01/19 09:00 03/28/19 21:29 03/01/19 09:54 Insulin Aspart (NovoLOG) BEFORE MEALS AND HS SUBQ 02/26/19 06:30 03/28/19 06:29 03/01/19 06:41 Losartan Potassium (Cozaar) 50 mg DAILY ORAL 02/26/19 09:00 03/28/19 08:59 03/01/19 09:50 Metformin HCl (Glucophage) 1,000 mg BID ORAL 02/28/19 09:00 03/30/19 08:59 03/01/19 09:51 Methotrexate (metHOTREXate) 2.5 mg ONCE A WEEK ORAL 02/28/19 09:00 03/28/19 09:01 02/28/19 08:22 Ondansetron HCl (Zofran) 4 mg Q4HR PRN IVP Nausea & Vomiting 02/26/19 05:15 03/28/19 05:14 02/27/19 20:26 Pioglitazone HCl (Actos) 45 mg ACBREAKFAST ORAL 02/28/19 06:45 03/30/19 06:44 03/01/19 06:45 Promethazine HCl/ Codeine (Phenergan with Codeine) 5 ml Q4H PRN ORAL For Cough 02/28/19 17:25 03/30/19 17:24 02/28/19 21:31 Jamshid Chan MD Mar 01, 2019 10:25
[2019-03-01] MEDS: Promethazine/Codeine 5ml UD ORAL PRN ×2 (10:50→21:33)
[2019-03-01] MEDS: Ertapenem 1 GM in NS 55 ML IVPB SCH (10:57)
--- NOTE | 2019-03-01 11:22 | Internal Med Progress Note ---
Subjective Date of Service: Mar 01, 2019 Physician Name Davy Thompson Attending Physician Dale Villanueva MD Current Medications Medications (Trade) Dose Ordered Sig/Fortino Route PRN Reason Start Time Stop Time Status Last Admin Dose Admin Acetaminophen (Tylenol) 650 mg Q6H PRN ORAL Mild Pain/Temp > 100.5 02/26/19 05:15 03/28/19 05:14 02/27/19 17:12 Acetaminophen/ Hydrocodone Bitart ([place] 5/325) 1 tab Q6H PRN ORAL For Pain 02/26/19 05:15 03/05/19 05:14 Atorvastatin Calcium (Lipitor) 40 mg BEDTIME ORAL 02/26/19 21:00 03/28/19 20:59 02/28/19 20:51 Clopidogrel Bisulfate (Plavix) 75 mg DAILY ORAL 02/26/19 09:00 03/28/19 08:59 03/01/19 09:55 Dextrose (Dextrose 50%) 25 ml Q30M PRN IV Hypoglycemia 02/26/19 05:45 03/28/19 05:44 Ertapenem 1 gm/ Sodium Chloride 55 ml @ 110 mls/hr Q24H IVPB 02/28/19 10:00 03/09/19 09:59 03/01/19 10:57 Fluoxetine HCl (PROzac) 40 mg DAILY ORAL 02/26/19 09:00 03/28/19 08:59 03/01/19 09:56 Folic Acid (Folate) 1 mg DAILY ORAL 02/26/19 09:00 03/28/19 08:59 03/01/19 09:53 Gabapentin (Neurontin) 300 mg BEDTIME ORAL 02/26/19 21:00 03/28/19 20:59 02/28/19 20:59 Heparin Sodium (Porcine) (Heparin 5000 units/ml) 5,000 units EVERY 12 HOURS SUBQ 02/26/19 09:00 03/28/19 08:59 03/01/19 10:02 Hydrocortisone (Cortef) 5 mg BEFORE DINNER ORAL 03/01/19 16:30 03/30/19 06:29 Hydrocortisone (Cortef) 10 mg DAILY ORAL 03/01/19 09:00 03/28/19 21:29 03/01/19 09:54 Insulin Aspart (NovoLOG) BEFORE MEALS AND HS SUBQ 02/26/19 06:30 03/28/19 06:29 03/01/19 06:41 Losartan Potassium (Cozaar) 50 mg DAILY ORAL 02/26/19 09:00 03/28/19 08:59 03/01/19 09:50 Metformin HCl (Glucophage) 1,000 mg BID ORAL 02/28/19 09:00 03/30/19 08:59 03/01/19 09:51 Methotrexate (metHOTREXate) 2.5 mg ONCE A WEEK ORAL 02/28/19 09:00 03/28/19 09:01 02/28/19 08:22 Ondansetron HCl (Zofran) 4 mg Q4HR PRN IVP Nausea & Vomiting 02/26/19 05:15 03/28/19 05:14 02/27/19 20:26 Pioglitazone HCl (Actos) 45 mg ACBREAKFAST ORAL 02/28/19 06:45 03/30/19 06:44 03/01/19 06:45 Promethazine HCl/ Codeine (Phenergan with Codeine) 5 ml Q4H PRN ORAL For Cough 02/28/19 17:25 03/30/19 17:24 03/01/19 10:50 Allergies: Coded Allergies: LATEX (Verified Allergy, Intermediate, 02/26/19) ROS Limited/Unobtainable: No Constitutional: Reports: no symptoms HEENT: Reports: no symptoms Cardiovascular: Reports: no symptoms Respiratory: Reports: no symptoms Gastrointestinal/Abdominal: Reports: no symptoms Genitourinary: Reports: no symptoms Neurologic/Psychiatric: Reports: no symptoms Subjective 68 YO F admitted with urine frequency, now UTI. Cover for Int Miah-DR Villanueva Objective Last Vital Signs Date Time Temp Pulse Resp B/P (MAP) Pulse Ox O2 Delivery O2 Flow Rate FiO2 03/01/19 09:50 116/66 03/01/19 04:00 97.6 78 18 02/28/19 21:00 Room Air 02/28/19 15:56 94 Laboratory Tests Test 03/01/19 06:05 White Blood Count 5.4 K/UL (4.8-10.8) Red Blood Count 4.20 M/UL (4.20-5.40) Hemoglobin 11.2 G/DL (12.0-16.0) L Hematocrit 34.9 % (37.0-47.0) L Mean Corpuscular Volume 83 FL (80-99) Mean Corpuscular Hemoglobin 26.8 PG (27.0-31.0) L Mean Corpuscular Hemoglobin Concent 32.2 G/DL (32.0-36.0) Red Cell Distribution Width 19.7 % (11.6-14.8) H Platelet Count 148 K/UL (150-450) L Mean Platelet Volume 8.6 FL (6.5-10.1) Neutrophils (%) (Auto) 50.7 % (45.0-75.0) Lymphocytes (%) (Auto) 35.0 % (20.0-45.0) Monocytes (%) (Auto) 9.5 % (1.0-10.0) Eosinophils (%) (Auto) 4.0 % (0.0-3.0) H Basophils (%) (Auto) 0.7 % (0.0-2.0) Sodium Level 139 MMOL/L (136-145) Potassium Level 3.8 MMOL/L (3.5-5.1) Chloride Level 103 MMOL/L (98-107) Carbon Dioxide Level 28 MMOL/L (21-32) Anion Gap 8 mmol/L (5-15) Blood Urea Nitrogen 17 mg/dL (7-18) Creatinine 0.8 MG/DL (0.55-1.30) Estimat Glomerular Filtration Rate > 60 mL/min (>60) Glucose Level 154 MG/DL (74-106) H Calcium Level 8.5 MG/DL (8.5-10.1) Intake and Output 02/28/19 03/01/19 19:00 07:00 Intake Total 895 ml Balance 895 ml Intake Oral 840 ml IV Total 55 ml # Voids 1 Objective PHYSICAL EXAMINATION: GENERAL: The patient well-developed, well-nourished white female, in no apparent distress. HEENT: Eyes, pupils equal and responsive to light and accommodation. Extraocular movements are intact. NECK: Supple without lymphadenopathy. CHEST: Lungs are clear to auscultation bilaterally without wheezes or rales. CARDIOVASCULAR: Regular rhythm and rate. S1-S2 are normal without murmurs, rubs, or gallops. ABDOMEN: Soft, nontender, and nondistended. Positive bowel sounds. No evidence of hepatosplenomegaly. Currently, no rebound or guarding noted. EXTREMITIES: Negative for clubbing, cyanosis, or edema. RECTAL/GENITAL: Refused. NEUROLOGIC: Cranial nerves II through XII are grossly intact without focal deficits. Motor strength is 5/5 bilaterally. Deep tendon reflexes are 2+ plantar. Assessment/Plan Assessment/Plan ASSESSMENT: This is a 68-year-old white female. 1. Urinary tract infection=ESBL E.Coli 2. Urinary frequency. 3. Urinary urgency. 4. Diabetes type 2. 5. Hypertension. 6. Hypercholesteremia. TREATMENT: 1. Urinary tract infection/urinary frequency/urgency. Antibiotic=Ertapenem. Await culture ID and Sensitivity. The patient was started on oral ciprofloxacin at [place]. Continue Rocephin until culture and sensitivity results are known. 2. Diabetes type 2. NovoLog sliding scale has been instituted. 3. Hypertension. Continue losartan as above. 4. Hypercholesterolemia. Continue Crestor as above. Davy Thompson MD Mar 01, 2019 11:22
[2019-03-01 12:00] VITALS: BP 131/68
--- NOTE | 2019-03-01 12:35 | NUR ---
.SOUND EFFECTS PERSON Note: SOUND EFFECTS PERSON was called at 1235 by [4E RN due to pt has been coughing continuously,O2 sat- 75-89% RA, possible aspiration per Dr Griffin.and Dr Griffin was at the bedside.Pt was given Albuterol 2.5mg in 3mls via HHN by RT.PCXR done @ 1248. Pt remained to Room 411-1. Pt's vital signs remained in stable condition O2 sat- 98%. See SOUND EFFECTS PERSON documentation form for full report.
[2019-03-01] MEDS ORDERED: Albuterol ud Inhalation HHN PRN (12:38)
[2019-03-01] MEDS ORDERED: Albuterol ud Inhalation ONE (12:39)
[2019-03-01] MEDS ORDERED: Isovue-300 100ml vial INJ PRN (12:45)
[2019-03-01] MEDS ORDERED: Lidocaine 1% MPF 10mg/ml 5ml HHN PRN ×2 (12:45)
--- NOTE | 2019-03-01 12:47 | Pulmonology Progress Note ---
Assessment/Plan Problems: (1) Refractory nausea and vomiting (2) Hypopituitarism (3) UTI (lower urinary tract infection) (4) Rheumatoid arthritis (5) DM (diabetes mellitus) Assessment/Plan CT of chest sputum for pertusis ? IV abx was changed to Ertapenem symptomatic treatment check electrolytes endocrinology note appreciated antitussives sliding scale diabetic diet Subjective ROS Limited/Unobtainable: No Interval Events: episodes of cough Constitutional: Reports: no symptoms Respiratory: Reports: no symptoms Allergies: Coded Allergies: LATEX (Verified Allergy, Intermediate, 02/26/19) Objective Last 24 Hour Vital Signs Date Time Temp Pulse Resp B/P (MAP) Pulse Ox O2 Delivery O2 Flow Rate FiO2 03/01/19 12:32 Room Air 03/01/19 09:50 116/66 03/01/19 04:00 97.6 78 18 133/77 (95) 03/01/19 00:00 97.0 60 18 103/57 (72) 02/28/19 21:00 Room Air 02/28/19 20:00 98.3 92 18 108/66 (80) 02/28/19 15:56 97.5 93 20 112/74 (87) 94 Intake and Output 02/28/19 03/01/19 19:00 07:00 Intake Total 895 ml Balance 895 ml Intake Oral 840 ml IV Total 55 ml # Voids 1 General Appearance: WD/WN HEENT: normocephalic, anicteric Respiratory/Chest: chest wall non-tender, lungs clear Breasts: no masses Cardiovascular: normal peripheral pulses Abdomen: soft, non tender, no organomegaly Extremities: no cyanosis Skin: no rash Laboratory Tests 03/01/19 06:05: White Blood Count 5.4, Red Blood Count 4.20, Hemoglobin 11.2L, Hematocrit 34.9L , Mean Corpuscular Volume 83, Mean Corpuscular Hemoglobin 26.8L, Mean Corpuscular Hemoglobin Concent 32.2, Red Cell Distribution Width 19.7H, Platelet Count 148L, Mean Platelet Volume 8.6, Neutrophils (%) (Auto) 50.7, Lymphocytes (%) (Auto) 35.0, Monocytes (%) (Auto) 9.5, Eosinophils (%) (Auto) 4.0H, Basophils (%) (Auto) 0.7, Sodium Level 139, Potassium Level 3.8, Chloride Level 103, Carbon Dioxide Level 28, Anion Gap 8, Blood Urea Nitrogen 17, Creatinine 0.8, Estimat Glomerular Filtration Rate > 60, Glucose Level 154H, Calcium Level 8.5 Current Medications Medications (Trade) Dose Ordered Sig/Fortino Route PRN Reason Start Time Stop Time Status Last Admin Dose Admin Acetaminophen (Tylenol) 650 mg Q6H PRN ORAL Mild Pain/Temp > 100.5 02/26/19 05:15 03/28/19 05:14 02/27/19 17:12 Acetaminophen/ Hydrocodone Bitart ([place] 5/325) 1 tab Q6H PRN ORAL For Pain 02/26/19 05:15 03/05/19 05:14 Albuterol/ Ipratropium (Albuterol/ Ipratropium) 3 ml Q4HRT HHN 03/01/19 15:00 03/06/19 14:59 Atorvastatin Calcium (Lipitor) 40 mg BEDTIME ORAL 02/26/19 21:00 03/28/19 20:59 02/28/19 20:51 Clopidogrel Bisulfate (Plavix) 75 mg DAILY ORAL 02/26/19 09:00 03/28/19 08:59 03/01/19 09:55 Dextrose (Dextrose 50%) 25 ml Q30M PRN IV Hypoglycemia 02/26/19 05:45 03/28/19 05:44 Ertapenem 1 gm/ Sodium Chloride 55 ml @ 110 mls/hr Q24H IVPB 02/28/19 10:00 03/09/19 09:59 03/01/19 10:57 Fluoxetine HCl (PROzac) 40 mg DAILY ORAL 02/26/19 09:00 03/28/19 08:59 03/01/19 09:56 Folic Acid (Folate) 1 mg DAILY ORAL 02/26/19 09:00 03/28/19 08:59 03/01/19 09:53 Gabapentin (Neurontin) 300 mg BEDTIME ORAL 02/26/19 21:00 03/28/19 20:59 02/28/19 20:59 Heparin Sodium (Porcine) (Heparin 5000 units/ml) 5,000 units EVERY 12 HOURS SUBQ 02/26/19 09:00 03/28/19 08:59 03/01/19 10:02 Hydrocortisone (Cortef) 5 mg BEFORE DINNER ORAL 03/01/19 16:30 03/30/19 06:29 Hydrocortisone (Cortef) 10 mg DAILY ORAL 03/01/19 09:00 03/28/19 21:29 03/01/19 09:54 Insulin Aspart (NovoLOG) BEFORE MEALS AND HS SUBQ 02/26/19 06:30 03/28/19 06:29 03/01/19 06:41 Lidocaine (Xylocaine 1% MPF 5ml) 10 ml Q4H PRN HHN cough 03/01/19 12:45 03/31/19 12:44 Losartan Potassium (Cozaar) 50 mg DAILY ORAL 02/26/19 09:00 03/28/19 08:59 03/01/19 09:50 Metformin HCl (Glucophage) 1,000 mg BID ORAL 02/28/19 09:00 03/30/19 08:59 03/01/19 09:51 Methotrexate (metHOTREXate) 2.5 mg ONCE A WEEK ORAL 02/28/19 09:00 03/28/19 09:01 02/28/19 08:22 Ondansetron HCl (Zofran) 4 mg Q4HR PRN IVP Nausea & Vomiting 02/26/19 05:15 03/28/19 05:14 02/27/19 20:26 Pioglitazone HCl (Actos) 45 mg ACBREAKFAST ORAL 02/28/19 06:45 03/30/19 06:44 03/01/19 06:45 Promethazine HCl/ Codeine (Phenergan with Codeine) 5 ml Q4H PRN ORAL For Cough 02/28/19 17:25 03/30/19 17:24 03/01/19 10:50 Jesu Griffin MD Mar 01, 2019 12:47
--- NOTE | 2019-03-01 13:18 | Diagnostic Imaging Report ---
Indication: Cough, shortness of breath Technique: One view of the chest Comparison: 02/27/2019 Findings: Patient is rotated slightly to the right. The lungs and pleural spaces are clear. The heart size is normal. There is no significant interim change Impression: No acute process
--- NOTE | 2019-03-01 15:00 | Diagnostic Imaging Report ---
Indication: Flank pain Technique: Grayscale and duplex images of the kidneys, retroperitoneum, and bladder were obtained. Comparison: none Findings: Right kidney measures 9.2 cm in length. Left kidney measures 10.2 cm in length. Both kidneys demonstrate normal echogenicity. No hydronephrosis. Nonshadowing peripheral echogenic foci are seen in the kidneys bilaterally either in the cortex or adjacent to the renal sinuses. These measure up to 6 mm long axis dimension. Normal inferior vena cava. Bladder is normal. Impression: Negative for hydronephrosis Bilateral echogenic foci. These may represent calyceal calculi and/or foci of nephrocalcinosis.
[2019-03-01] MEDS: Albuterol/Ipratropium 3ml neb HHN SCH ×3 (15:34→23:00)
[2019-03-01 16:00] VITALS: BP 116/86
--- NOTE | 2019-03-01 16:18 | NUR ---
OPTOMECHANICAL TECHNICIANPATIENT SCHEDULING MANAGER SI:UTI VS: BP 116/64, P 93, T 97.4, RR 16 Hgb 11.2, Hct 34.9, Glucose 154 US RENAL COMP IMPRESSION: Bilateral echogenic foci. These may represent calyceal calculi and/or foci of nephrocalcinosis. IS:CORTEF 10mg PHENERGAN WITH CODEINE 5ml ERTAPENEM 55ml IVPB METFORMIN 1,000mg ACTOS 45mg HEPARIN SUBQ PLAVIX 75mg PROZAC 40mg COZAAR 50mg MED/SURG STATUS
--- NOTE | 2019-03-01 19:23 | NUR ---
HAND-OFF: Report given to YARELIS Johnson.
[2019-03-01 20:00] VITALS: BP 114/70
--- NOTE | 2019-03-01 20:00 | NUR ---
NURSE NOTES: Patient received in bed, awake and alert. No signs of acute distress at this time. IV is intact and patent. Bed is locked in low position. Call light within reach. Will continue to monitor.
--- NOTE | 2019-03-01 20:10 | NUR ---
NURSE NOTES: Attempted to get consent for contrast for CT chest. Patient refused to sign consent for contrast, stating that her had from kidney failure due to contrast. Dr. Griffin made aware and received order for CT chest without contrast, patient is agreeable.
[2019-03-01] MEDS: Atorvastatin 80mg tab ORAL SCH (20:24)
[2019-03-02] VITALS: BP 152/77
[2019-03-02] MEDS: Albuterol/Ipratropium 3ml neb HHN SCH ×6 (03:00→23:00)
[2019-03-02 04:47] VITALS: BP 139/92
[2019-03-02] MEDS: NovoLOG Insulin Flexpen SUBQ SCH ×4 (06:24→21:11)
--- NOTE | 2019-03-02 06:28 | NUR ---
NURSE NOTES: Patient refused to take Actos at this time. Explained importance of medication to be taken before breakfast as ordered. Patient stated she is too tired and sleepy right now and will take the medication after breakfast. Addendum: 03/02/19 at 0629 by MASTER PHELPS RN RN Will endorse to upcoming shift.
[2019-03-02 07:04] LABS: BASOPHILS % (AUTO) 0.8 % (0.0-2.0); EOSINOPHILS % (AUTO) 5.7 % (0.0-3.0); HEMATOCRIT 36.7 % (37.0-47.0); HEMOGLOBIN 11.6 G/DL (12.0-16.0); LYMPHOCYTES % (AUTO) 37.8 % (20.0-45.0); MEAN CORPUSCULAR VOLUME 85 FL (80-99); MONOCYTES % (AUTO) 12.1 % (1.0-10.0); NEUTROPHILS % (AUTO) 43.6 % (45.0-75.0); PLATELET COUNT 143 K/UL (150-450); RED BLOOD COUNT 4.32 M/UL (4.20-5.40); WHITE BLOOD COUNT 4.3 K/UL (4.8-10.8)
[2019-03-02 07:23] LABS: ALANINE AMINOTRANSFERASE 23 U/L (12-78); ALBUMIN 2.7 G/DL (3.4-5.0); ALBUMIN/GLOBULIN RATIO 0.6 (1.0-2.7); ALKALINE PHOSPHATASE 94 U/L (46-116); ANION GAP 8 mmol/L (5-15); ASPARTATE AMINO TRANSFERASE 18 U/L (15-37); BILIRUBIN,TOTAL 0.5 MG/DL (0.2-1.0); BLOOD UREA NITROGEN 8 mg/dL (7-18); CALCIUM 8.6 MG/DL (8.5-10.1); CARBON DIOXIDE 29 MMOL/L (21-32); CHLORIDE 106 MMOL/L (98-107); CREATININE 0.8 MG/DL (0.55-1.30); POTASSIUM 4.2 MMOL/L (3.5-5.1); SODIUM 142 MMOL/L (136-145)
--- NOTE | 2019-03-02 07:39 | NUR ---
HAND-OFF: Report given to Perlita SANTOYO.
[2019-03-02 08:00] VITALS: BP 115/76
[2019-03-02 08:13] LABS: PHOSPHORUS 2.9 MG/DL (2.5-4.9)
--- NOTE | 2019-03-02 08:53 | NUR ---
NURSE NOTES: Patient is alert and oriented X4. Patient assisted to bathroom. Bed linen was changed. Side rails are up X2, bed is locked, and in lowest position. No reports of discomfort at the moment. Will continue to monitor.
[2019-03-02] MEDS: Heparin 5000 units/ml inj SUBQ SCH ×2 (09:00→21:00)
[2019-03-02] MEDS: Losartan 50mg tab ORAL SCH (09:00)
[2019-03-02] MEDS: Promethazine/Codeine 5ml UD ORAL PRN ×2 (09:30→23:13)
[2019-03-02] MEDS: metFORMIN 500mg tab ORAL SCH ×2 (09:31→17:11)
[2019-03-02] MEDS: Ertapenem 1 GM in NS 55 ML IVPB SCH (09:32)
--- NOTE | 2019-03-02 11:14 | Infectious Diseases Prog Note ---
Assessment/Plan Assessment/Plan 68 yo female with pmhx of HTN and DM who transferred from [place] on 02/25/19 with urinary frequency. Pyelonephritis - Recurrent UTI Treated multiple time in the past year Fever at home, N/V left CVA tenderness Urine Cx 02/25/19 - GNR No Fever No leukocytosis DM PLAN - Continue Ertapenem 1g Qday #3/7 ( End date 03/06/19) - 02/28/19 SP ceftriaxone #3 - Monitor CBC and Temps - Will need to f/u with her Urologist and ID MD for recurrent UTI We will continue to follow the patient during this hospitalization. Subjective Allergies: Coded Allergies: LATEX (Verified Allergy, Intermediate, 02/26/19) Subjective Afebrile No leukocytosis Objective Vital Signs Last 24 Hour Vital Signs Date Time Temp Pulse Resp B/P (MAP) Pulse Ox O2 Delivery O2 Flow Rate FiO2 03/02/19 09:00 115/76 03/02/19 07:40 74 18 98 Room Air 21 03/02/19 07:28 72 17 96 Room Air 21 03/02/19 04:47 97.6 73 18 139/92 (108) 93 03/02/19 03:27 Room Air 21 03/02/19 03:27 Room Air 21 03/02/19 00:00 98.1 81 18 152/77 (102) 94 03/01/19 23:42 Room Air 21 03/01/19 23:42 82 18 97 Room Air 21 03/01/19 21:00 Room Air 03/01/19 21:00 98.2 03/01/19 20:00 97.4 93 18 114/70 (85) 96 03/01/19 19:49 91 18 Room Air 21 03/01/19 19:49 91 18 98 Room Air 21 03/01/19 19:49 Room Air 21 03/01/19 16:00 98.2 94 20 116/86 (96) 03/01/19 15:36 Room Air 03/01/19 15:34 Room Air 03/01/19 12:32 Room Air 03/01/19 12:00 97.4 93 16 131/68 (89) Height (Feet): 5 Height (Inches): 4.00 Weight (Pounds): 172 Objective Gen: NAD, well appearing HEENT: NCAT, MMM, EOMI LUNGS: CTAB, No W CARDS: RRR, S1, S2, No M/R/G, ABD: Soft, NT, ND, + BS Laboratory Tests Test 03/02/19 05:40 White Blood Count 4.3 K/UL (4.8-10.8) L Red Blood Count 4.32 M/UL (4.20-5.40) Hemoglobin 11.6 G/DL (12.0-16.0) L Hematocrit 36.7 % (37.0-47.0) L Mean Corpuscular Volume 85 FL (80-99) Mean Corpuscular Hemoglobin 26.8 PG (27.0-31.0) L Mean Corpuscular Hemoglobin Concent 31.5 G/DL (32.0-36.0) L Red Cell Distribution Width 20.0 % (11.6-14.8) H Platelet Count 143 K/UL (150-450) L Mean Platelet Volume 7.8 FL (6.5-10.1) Neutrophils (%) (Auto) 43.6 % (45.0-75.0) L Lymphocytes (%) (Auto) 37.8 % (20.0-45.0) Monocytes (%) (Auto) 12.1 % (1.0-10.0) H Eosinophils (%) (Auto) 5.7 % (0.0-3.0) H Basophils (%) (Auto) 0.8 % (0.0-2.0) Erythrocyte Sedimentation Rate 53 MM/HR (0-30) H Sodium Level 142 MMOL/L (136-145) Potassium Level 4.2 MMOL/L (3.5-5.1) Chloride Level 106 MMOL/L (98-107) Carbon Dioxide Level 29 MMOL/L (21-32) Anion Gap 8 mmol/L (5-15) Blood Urea Nitrogen 8 mg/dL (7-18) Creatinine 0.8 MG/DL (0.55-1.30) Estimat Glomerular Filtration Rate > 60 mL/min (>60) Glucose Level 152 MG/DL (74-106) H Calcium Level 8.6 MG/DL (8.5-10.1) Phosphorus Level 2.9 MG/DL (2.5-4.9) Magnesium Level 1.3 MG/DL (1.8-2.4) L Total Bilirubin 0.5 MG/DL (0.2-1.0) Aspartate Amino Transf (AST/SGOT) 18 U/L (15-37) Alanine Aminotransferase (ALT/SGPT) 23 U/L (12-78) Alkaline Phosphatase 94 U/L (46-116) C-Reactive Protein, Quantitative 2.9 mg/dL (0.00-0.90) H Total Protein 7.1 G/DL (6.4-8.2) Albumin 2.7 G/DL (3.4-5.0) L Globulin 4.4 g/dL Albumin/Globulin Ratio 0.6 (1.0-2.7) L Current Medications Medications (Trade) Dose Ordered Sig/Fortino Route PRN Reason Start Time Stop Time Status Last Admin Dose Admin Acetaminophen (Tylenol) 650 mg Q6H PRN ORAL Mild Pain/Temp > 100.5 02/26/19 05:15 03/28/19 05:14 03/01/19 20:30 Acetaminophen/ Hydrocodone Bitart ([place] 5/325) 1 tab Q6H PRN ORAL For Pain 02/26/19 05:15 03/05/19 05:14 Albuterol/ Ipratropium (Albuterol/ Ipratropium) 3 ml Q4HRT HHN 03/01/19 15:00 03/06/19 14:59 03/02/19 07:28 Atorvastatin Calcium (Lipitor) 40 mg BEDTIME ORAL 02/26/19 21:00 03/28/19 20:59 03/01/19 20:24 Clopidogrel Bisulfate (Plavix) 75 mg DAILY ORAL 02/26/19 09:00 03/28/19 08:59 03/02/19 09:31 Dextrose (Dextrose 50%) 25 ml Q30M PRN IV Hypoglycemia 02/26/19 05:45 03/28/19 05:44 Ertapenem 1 gm/ Sodium Chloride 55 ml @ 110 mls/hr Q24H IVPB 02/28/19 10:00 03/09/19 09:59 03/02/19 09:32 Fluoxetine HCl (PROzac) 40 mg DAILY ORAL 02/26/19 09:00 03/28/19 08:59 03/02/19 09:32 Folic Acid (Folate) 1 mg DAILY ORAL 02/26/19 09:00 03/28/19 08:59 03/02/19 09:30 Gabapentin (Neurontin) 300 mg BEDTIME ORAL 02/26/19 21:00 03/28/19 20:59 03/01/19 20:24 Heparin Sodium (Porcine) (Heparin 5000 units/ml) 5,000 units EVERY 12 HOURS SUBQ 02/26/19 09:00 03/28/19 08:59 03/01/19 20:26 Hydrocortisone (Cortef) 5 mg BEFORE DINNER ORAL 03/01/19 16:30 03/30/19 06:29 03/01/19 17:11 Hydrocortisone (Cortef) 10 mg DAILY ORAL 03/01/19 09:00 03/28/19 21:29 03/02/19 09:31 Insulin Aspart (NovoLOG) BEFORE MEALS AND HS SUBQ 02/26/19 06:30 03/28/19 06:29 03/01/19 17:13 Iopamidol (Isovue-300 100ml) 100 ml NOW PRN INJ Radiology Procedure 03/01/19 12:45 03/03/19 12:45 Lidocaine (Xylocaine 1% MPF 5ml) 10 ml Q4H PRN HHN cough 03/01/19 12:45 03/31/19 12:44 Losartan Potassium (Cozaar) 50 mg DAILY ORAL 02/26/19 09:00 03/28/19 08:59 03/01/19 09:50 Metformin HCl (Glucophage) 1,000 mg BID ORAL 02/28/19 09:00 03/30/19 08:59 03/02/19 09:31 Methotrexate (metHOTREXate) 2.5 mg ONCE A WEEK ORAL 02/28/19 09:00 03/28/19 09:01 02/28/19 08:22 Ondansetron HCl (Zofran) 4 mg Q4HR PRN IVP Nausea & Vomiting 02/26/19 05:15 03/28/19 05:14 02/27/19 20:26 Pioglitazone HCl (Actos) 45 mg ACBREAKFAST ORAL 02/28/19 06:45 03/30/19 06:44 03/01/19 06:45 Promethazine HCl/ Codeine (Phenergan with Codeine) 5 ml Q4H PRN ORAL For Cough 02/28/19 17:25 03/30/19 17:24 03/02/19 09:30 Jamshid Chan MD Mar 02, 2019 11:14
--- NOTE | 2019-03-02 11:35 | NUR ---
RESPIRATORY NOTE: Rapid Response called over head. Arrived to room to find patient coughing continuously. Patient was on room air sats 98% upon RT arrival. Albuterol 2.5mg per verbal order was administered via HHN without any adverse reaction. Patient tolerated well, breath sounds clear and maintaining O2 sats above 97% in room air. Patient shows no signs or symptoms of respiratory distress and denies any shortness of breath. Will continue to monitor. Addendum: 03/02/19 at 1145 by LARISSA ENRIQUEZ RT RT Corrected date for 03/01/11 not for 03/02/19
[2019-03-02 12:00] VITALS: BP 153/71
--- NOTE | 2019-03-02 13:57 | Pulmonology Progress Note ---
Assessment/Plan Problems: (1) Refractory nausea and vomiting (2) Hypopituitarism (3) UTI (lower urinary tract infection) (4) Rheumatoid arthritis (5) DM (diabetes mellitus) Assessment/Plan sputum for pertusis ? IV abx was changed to Ertapenem symptomatic treatment check electrolytes endocrinology note appreciated antitussives sliding scale diabetic diet Subjective ROS Limited/Unobtainable: No Constitutional: Reports: no symptoms HEENT: Repors: no symptoms Allergies: Coded Allergies: LATEX (Verified Allergy, Intermediate, 02/26/19) Objective Last 24 Hour Vital Signs Date Time Temp Pulse Resp B/P (MAP) Pulse Ox O2 Delivery O2 Flow Rate FiO2 03/02/19 12:00 98.0 101 20 153/71 (98) 96 03/02/19 11:35 81 17 99 Room Air 21 03/02/19 11:23 80 19 97 Room Air 21 03/02/19 09:00 115/76 03/02/19 08:30 Room Air 03/02/19 08:00 97.7 88 18 115/76 (89) 95 03/02/19 07:40 74 18 98 Room Air 21 03/02/19 07:28 72 17 96 Room Air 21 03/02/19 04:47 97.6 73 18 139/92 (108) 93 03/02/19 03:27 Room Air 21 03/02/19 03:27 Room Air 21 03/02/19 00:00 98.1 81 18 152/77 (102) 94 03/01/19 23:42 Room Air 21 03/01/19 23:42 82 18 97 Room Air 21 03/01/19 21:00 Room Air 03/01/19 21:00 98.2 03/01/19 20:00 97.4 93 18 114/70 (85) 96 03/01/19 19:49 91 18 Room Air 21 03/01/19 19:49 91 18 98 Room Air 21 03/01/19 19:49 Room Air 21 03/01/19 16:00 98.2 94 20 116/86 (96) 03/01/19 15:36 Room Air 03/01/19 15:34 Room Air Intake and Output 03/01/19 03/02/19 19:00 07:00 Intake Total 480 ml Balance 480 ml Intake Oral 480 ml # Voids 4 3 General Appearance: WD/WN HEENT: normocephalic, atraumatic Respiratory/Chest: chest wall non-tender, lungs clear Breasts: no masses Cardiovascular: normal rate Abdomen: normal bowel sounds, soft, non tender Extremities: no cyanosis Skin: no rash Laboratory Tests 03/02/19 05:40: White Blood Count 4.3L, Red Blood Count 4.32, Hemoglobin 11.6L, Hematocrit 36.7L , Mean Corpuscular Volume 85, Mean Corpuscular Hemoglobin 26.8L, Mean Corpuscular Hemoglobin Concent 31.5L, Red Cell Distribution Width 20.0H, Platelet Count 143L, Mean Platelet Volume 7.8, Neutrophils (%) (Auto) 43.6L, Lymphocytes (%) (Auto) 37.8, Monocytes (%) (Auto) 12.1H, Eosinophils (%) (Auto) 5.7H, Basophils (%) (Auto) 0.8, Erythrocyte Sedimentation Rate 53H, Sodium Level 142, Potassium Level 4.2, Chloride Level 106, Carbon Dioxide Level 29, Anion Gap 8, Blood Urea Nitrogen 8, Creatinine 0.8, Estimat Glomerular Filtration Rate > 60, Glucose Level 152H, Calcium Level 8.6, Phosphorus Level 2.9, Magnesium Level 1.3L, Total Bilirubin 0.5, Aspartate Amino Transf (AST/SGOT ) 18, Alanine Aminotransferase (ALT/SGPT) 23, Alkaline Phosphatase 94, C- Reactive Protein, Quantitative 2.9H, Total Protein 7.1, Albumin 2.7L, Globulin 4.4, Albumin/Globulin Ratio 0.6L Current Medications Medications (Trade) Dose Ordered Sig/Fortino Route PRN Reason Start Time Stop Time Status Last Admin Dose Admin Acetaminophen (Tylenol) 650 mg Q6H PRN ORAL Mild Pain/Temp > 100.5 02/26/19 05:15 03/28/19 05:14 03/01/19 20:30 Acetaminophen/ Hydrocodone Bitart ([place] 5/325) 1 tab Q6H PRN ORAL For Pain 02/26/19 05:15 03/05/19 05:14 Albuterol/ Ipratropium (Albuterol/ Ipratropium) 3 ml Q4HRT HHN 03/01/19 15:00 03/06/19 14:59 03/02/19 11:22 Atorvastatin Calcium (Lipitor) 40 mg BEDTIME ORAL 02/26/19 21:00 03/28/19 20:59 03/01/19 20:24 Clopidogrel Bisulfate (Plavix) 75 mg DAILY ORAL 02/26/19 09:00 03/28/19 08:59 03/02/19 09:31 Dextrose (Dextrose 50%) 25 ml Q30M PRN IV Hypoglycemia 02/26/19 05:45 03/28/19 05:44 Ertapenem 1 gm/ Sodium Chloride 55 ml @ 110 mls/hr Q24H IVPB 02/28/19 10:00 03/09/19 09:59 03/02/19 09:32 Fluoxetine HCl (PROzac) 40 mg DAILY ORAL 02/26/19 09:00 03/28/19 08:59 03/02/19 09:32 Folic Acid (Folate) 1 mg DAILY ORAL 02/26/19 09:00 03/28/19 08:59 03/02/19 09:30 Gabapentin (Neurontin) 300 mg BEDTIME ORAL 02/26/19 21:00 03/28/19 20:59 03/01/19 20:24 Heparin Sodium (Porcine) (Heparin 5000 units/ml) 5,000 units EVERY 12 HOURS SUBQ 02/26/19 09:00 03/28/19 08:59 03/01/19 20:26 Hydrocortisone (Cortef) 5 mg BEFORE DINNER ORAL 03/01/19 16:30 03/30/19 06:29 03/01/19 17:11 Hydrocortisone (Cortef) 10 mg DAILY ORAL 03/01/19 09:00 03/28/19 21:29 03/02/19 09:31 Insulin Aspart (NovoLOG) BEFORE MEALS AND HS SUBQ 02/26/19 06:30 03/28/19 06:29 03/02/19 12:34 Iopamidol (Isovue-300 100ml) 100 ml NOW PRN INJ Radiology Procedure 03/01/19 12:45 03/03/19 12:45 Lidocaine (Xylocaine 1% MPF 5ml) 10 ml Q4H PRN HHN cough 03/01/19 12:45 03/31/19 12:44 Losartan Potassium (Cozaar) 50 mg DAILY ORAL 02/26/19 09:00 03/28/19 08:59 03/01/19 09:50 Metformin HCl (Glucophage) 1,000 mg BID ORAL 02/28/19 09:00 03/30/19 08:59 03/02/19 09:31 Methotrexate (metHOTREXate) 2.5 mg ONCE A WEEK ORAL 02/28/19 09:00 03/28/19 09:01 02/28/19 08:22 Ondansetron HCl (Zofran) 4 mg Q4HR PRN IVP Nausea & Vomiting 02/26/19 05:15 03/28/19 05:14 02/27/19 20:26 Pioglitazone HCl (Actos) 45 mg ACBREAKFAST ORAL 02/28/19 06:45 03/30/19 06:44 03/01/19 06:45 Promethazine HCl/ Codeine (Phenergan with Codeine) 5 ml Q4H PRN ORAL For Cough 02/28/19 17:25 03/30/19 17:24 03/02/19 09:30 Jesu Griffin MD Mar 02, 2019 13:56
[2019-03-02 16:00] VITALS: BP 127/72
--- NOTE | 2019-03-02 18:44 | Internal Med Progress Note ---
Subjective Date of Service: Mar 02, 2019 Physician Name Davy Thompson Attending Physician Dale Villanueva MD Current Medications Medications (Trade) Dose Ordered Sig/Fortino Route PRN Reason Start Time Stop Time Status Last Admin Dose Admin Acetaminophen (Tylenol) 650 mg Q6H PRN ORAL Mild Pain/Temp > 100.5 02/26/19 05:15 03/28/19 05:14 03/01/19 20:30 Acetaminophen/ Hydrocodone Bitart ([place] 5/325) 1 tab Q6H PRN ORAL For Pain 02/26/19 05:15 03/05/19 05:14 Albuterol/ Ipratropium (Albuterol/ Ipratropium) 3 ml Q4HRT HHN 03/01/19 15:00 03/06/19 14:59 03/02/19 15:15 Atorvastatin Calcium (Lipitor) 40 mg BEDTIME ORAL 02/26/19 21:00 03/28/19 20:59 03/01/19 20:24 Clopidogrel Bisulfate (Plavix) 75 mg DAILY ORAL 02/26/19 09:00 03/28/19 08:59 03/02/19 09:31 Dextrose (Dextrose 50%) 25 ml Q30M PRN IV Hypoglycemia 02/26/19 05:45 03/28/19 05:44 Ertapenem 1 gm/ Sodium Chloride 55 ml @ 110 mls/hr Q24H IVPB 02/28/19 10:00 03/09/19 09:59 03/02/19 09:32 Fluoxetine HCl (PROzac) 40 mg DAILY ORAL 02/26/19 09:00 03/28/19 08:59 03/02/19 09:32 Folic Acid (Folate) 1 mg DAILY ORAL 02/26/19 09:00 03/28/19 08:59 03/02/19 09:30 Gabapentin (Neurontin) 300 mg BEDTIME ORAL 02/26/19 21:00 03/28/19 20:59 03/01/19 20:24 Heparin Sodium (Porcine) (Heparin 5000 units/ml) 5,000 units EVERY 12 HOURS SUBQ 02/26/19 09:00 03/28/19 08:59 03/01/19 20:26 Hydrocortisone (Cortef) 5 mg BEFORE DINNER ORAL 03/01/19 16:30 03/30/19 06:29 03/02/19 17:11 Hydrocortisone (Cortef) 10 mg DAILY ORAL 03/01/19 09:00 03/28/19 21:29 03/02/19 09:31 Insulin Aspart (NovoLOG) BEFORE MEALS AND HS SUBQ 02/26/19 06:30 03/28/19 06:29 03/02/19 17:13 Iopamidol (Isovue-300 100ml) 100 ml NOW PRN INJ Radiology Procedure 03/01/19 12:45 03/03/19 12:45 Lidocaine (Xylocaine 1% MPF 5ml) 10 ml Q4H PRN HHN cough 03/01/19 12:45 03/31/19 12:44 Losartan Potassium (Cozaar) 50 mg DAILY ORAL 02/26/19 09:00 03/28/19 08:59 03/01/19 09:50 Metformin HCl (Glucophage) 1,000 mg BID ORAL 02/28/19 09:00 03/30/19 08:59 03/02/19 17:11 Methotrexate (metHOTREXate) 2.5 mg ONCE A WEEK ORAL 02/28/19 09:00 03/28/19 09:01 02/28/19 08:22 Ondansetron HCl (Zofran) 4 mg Q4HR PRN IVP Nausea & Vomiting 02/26/19 05:15 03/28/19 05:14 02/27/19 20:26 Pioglitazone HCl (Actos) 45 mg ACBREAKFAST ORAL 02/28/19 06:45 03/30/19 06:44 03/01/19 06:45 Promethazine HCl/ Codeine (Phenergan with Codeine) 5 ml Q4H PRN ORAL For Cough 02/28/19 17:25 03/30/19 17:24 03/02/19 09:30 Allergies: Coded Allergies: LATEX (Verified Allergy, Intermediate, 02/26/19) Subjective 68 YO F admitted with urine frequency, now UTI. Cover for Int Miah-DR Villanueva Objective Last Vital Signs Date Time Temp Pulse Resp B/P (MAP) Pulse Ox O2 Delivery O2 Flow Rate FiO2 03/02/19 16:00 98.7 96 20 127/72 (90) 95 03/02/19 15:25 Room Air 21 Laboratory Tests Test 03/02/19 05:40 White Blood Count 4.3 K/UL (4.8-10.8) L Red Blood Count 4.32 M/UL (4.20-5.40) Hemoglobin 11.6 G/DL (12.0-16.0) L Hematocrit 36.7 % (37.0-47.0) L Mean Corpuscular Volume 85 FL (80-99) Mean Corpuscular Hemoglobin 26.8 PG (27.0-31.0) L Mean Corpuscular Hemoglobin Concent 31.5 G/DL (32.0-36.0) L Red Cell Distribution Width 20.0 % (11.6-14.8) H Platelet Count 143 K/UL (150-450) L Mean Platelet Volume 7.8 FL (6.5-10.1) Neutrophils (%) (Auto) 43.6 % (45.0-75.0) L Lymphocytes (%) (Auto) 37.8 % (20.0-45.0) Monocytes (%) (Auto) 12.1 % (1.0-10.0) H Eosinophils (%) (Auto) 5.7 % (0.0-3.0) H Basophils (%) (Auto) 0.8 % (0.0-2.0) Erythrocyte Sedimentation Rate 53 MM/HR (0-30) H Sodium Level 142 MMOL/L (136-145) Potassium Level 4.2 MMOL/L (3.5-5.1) Chloride Level 106 MMOL/L (98-107) Carbon Dioxide Level 29 MMOL/L (21-32) Anion Gap 8 mmol/L (5-15) Blood Urea Nitrogen 8 mg/dL (7-18) Creatinine 0.8 MG/DL (0.55-1.30) Estimat Glomerular Filtration Rate > 60 mL/min (>60) Glucose Level 152 MG/DL (74-106) H Calcium Level 8.6 MG/DL (8.5-10.1) Phosphorus Level 2.9 MG/DL (2.5-4.9) Magnesium Level 1.3 MG/DL (1.8-2.4) L Total Bilirubin 0.5 MG/DL (0.2-1.0) Aspartate Amino Transf (AST/SGOT) 18 U/L (15-37) Alanine Aminotransferase (ALT/SGPT) 23 U/L (12-78) Alkaline Phosphatase 94 U/L (46-116) C-Reactive Protein, Quantitative 2.9 mg/dL (0.00-0.90) H Total Protein 7.1 G/DL (6.4-8.2) Albumin 2.7 G/DL (3.4-5.0) L Globulin 4.4 g/dL Albumin/Globulin Ratio 0.6 (1.0-2.7) L Intake and Output 03/01/19 03/02/19 19:00 07:00 Intake Total 480 ml Balance 480 ml Intake Oral 480 ml # Voids 4 3 Objective PHYSICAL EXAMINATION: GENERAL: The patient well-developed, well-nourished white female, in no apparent distress. HEENT: Eyes, pupils equal and responsive to light and accommodation. Extraocular movements are intact. NECK: Supple without lymphadenopathy. CHEST: Lungs are clear to auscultation bilaterally without wheezes or rales. CARDIOVASCULAR: Regular rhythm and rate. S1-S2 are normal without murmurs, rubs, or gallops. ABDOMEN: Soft, nontender, and nondistended. Positive bowel sounds. No evidence of hepatosplenomegaly. Currently, no rebound or guarding noted. EXTREMITIES: Negative for clubbing, cyanosis, or edema. RECTAL/GENITAL: Refused. NEUROLOGIC: Cranial nerves II through XII are grossly intact without focal deficits. Motor strength is 5/5 bilaterally. Deep tendon reflexes are 2+ plantar. Assessment/Plan Assessment/Plan ASSESSMENT: This is a 68-year-old white female. 1. Urinary tract infection=ESBL E.Coli 2. Urinary frequency. 3. Urinary urgency. 4. Diabetes type 2. 5. Hypertension. 6. Hypercholesteremia. TREATMENT: 1. Urinary tract infection/urinary frequency/urgency-ESBL E. Coli Antibiotic=Ertapenem Day #3. 2. Diabetes type 2. NovoLog sliding scale has been instituted. 3. Hypertension. Continue losartan as above. 4. Hypercholesterolemia. Continue Crestor as above. 5. Renal U/S=non obstructing renal calcyceal calculi. no hydronephrosis Davy Thompson MD Mar 02, 2019 18:44
--- NOTE | 2019-03-02 19:28 | NUR ---
HAND-OFF: Report given to DIEGO Delarosa.
[2019-03-02 20:00] VITALS: BP 147/79
[2019-03-02] MEDS: Atorvastatin 80mg tab ORAL SCH (21:08)
[2019-03-03] VITALS: BP 116/57
[2019-03-03] MEDS: Albuterol/Ipratropium 3ml neb HHN SCH ×6 (03:00→23:00)
[2019-03-03 04:00] VITALS: BP 145/86
--- NOTE | 2019-03-03 06:18 | NUR ---
NURSE NOTES: RESTED WELL, NO SIGNIFICANT CHANGE OF CONDITION NOTED THROUGHOUT THE NIGHT. SAFETY MAINTAINED. NAD.
[2019-03-03 06:22] LABS: BASOPHILS % (AUTO) 1.3 % (0.0-2.0); EOSINOPHILS % (AUTO) 4.4 % (0.0-3.0); HEMATOCRIT 34.2 % (37.0-47.0); HEMOGLOBIN 10.9 G/DL (12.0-16.0); LYMPHOCYTES % (AUTO) 41.4 % (20.0-45.0); MEAN CORPUSCULAR VOLUME 84 FL (80-99); MONOCYTES % (AUTO) 9.3 % (1.0-10.0); NEUTROPHILS % (AUTO) 43.6 % (45.0-75.0); PLATELET COUNT 140 K/UL (150-450); RED BLOOD COUNT 4.06 M/UL (4.20-5.40); RED CELL DISTRIBUTION WIDTH 20.1 % (11.6-14.8); WHITE BLOOD COUNT 4.1 K/UL (4.8-10.8)
[2019-03-03 06:41] LABS: ANION GAP 10 mmol/L (5-15); BLOOD UREA NITROGEN 9 mg/dL (7-18); CALCIUM 8.3 MG/DL (8.5-10.1); CARBON DIOXIDE 27 MMOL/L (21-32); CHLORIDE 103 MMOL/L (98-107); CREATININE 0.9 MG/DL (0.55-1.30); POTASSIUM 4.1 MMOL/L (3.5-5.1); SODIUM 140 MMOL/L (136-145)
--- NOTE | 2019-03-03 06:49 | General Progress Note ---
Assessment/Plan Problem List: (1) DM (diabetes mellitus) ICD Codes: E11.9 - DM (diabetes mellitus) SNOMED: 20694388 (2) UTI (lower urinary tract infection) ICD Codes: N39.0 - UTI (lower urinary tract infection) SNOMED: 1573720 (3) Hypopituitarism ICD Codes: E23.0 - Hypopituitarism SNOMED: 14767889 (4) Rheumatoid arthritis ICD Codes: M06.9 - Rheumatoid arthritis, unspecified SNOMED: 90777299 Assessment/Plan continue Cortef to 10 mg am and 5 mg pm - maintenance dose continue Metformin and Actos - hold Glipizide for now - continue NISS ac / hs Subjective Allergies: Coded Allergies: LATEX (Verified Allergy, Intermediate, 02/26/19) All Systems: reviewed and negative except above Subjective events noted Item Value Date Time Bedside Blood Glucose 168 mg/dl H 03/03/19 0638 Bedside Blood Glucose 171 mg/dl H 03/02/19 2119 Bedside Blood Glucose 341 mg/dl H 03/02/19 1713 Bedside Blood Glucose 171 mg/dl H 03/02/19 1234 Bedside Blood Glucose 162 mg/dl H 03/02/19 0624 Objective Last 24 Hour Vital Signs Date Time Temp Pulse Resp B/P (MAP) Pulse Ox O2 Delivery O2 Flow Rate FiO2 03/03/19 04:00 97.7 74 18 145/86 (105) 97 03/03/19 03:42 Room Air 21 03/03/19 03:40 Room Air 21 03/03/19 00:00 97.5 100 18 116/57 (76) 98 03/02/19 23:27 Room Air 21 03/02/19 23:27 Room Air 21 03/02/19 21:00 Room Air 03/02/19 20:11 98.6 03/02/19 20:00 98.6 84 18 147/79 (101) 97 03/02/19 19:59 86 20 100 Room Air 21 03/02/19 19:47 86 20 99 Room Air 21 03/02/19 16:00 98.7 96 20 127/72 (90) 95 03/02/19 15:25 89 19 100 Room Air 21 03/02/19 15:15 86 16 97 Room Air 21 03/02/19 12:00 98.0 101 20 153/71 (98) 96 4/11/19 11:35 81 17 99 Room Air 21 03/02/19 11:23 80 19 97 Room Air 21 03/02/19 09:00 115/76 03/02/19 08:30 Room Air 03/02/19 08:00 97.7 88 18 115/76 (89) 95 03/02/19 07:40 74 18 98 Room Air 21 03/02/19 07:28 72 17 96 Room Air 21 Intake and Output 03/02/19 03/03/19 18:59 06:59 Intake Total 850 ml 180 ml Balance 850 ml 180 ml Intake Oral 850 ml 180 ml # Voids 3 5 Laboratory Tests 03/03/19 05:30: White Blood Count 4.1L, Red Blood Count 4.06L, Hemoglobin 10.9L, Hematocrit 34.2L, Mean Corpuscular Volume 84, Mean Corpuscular Hemoglobin 26.9L, Mean Corpuscular Hemoglobin Concent 31.9L, Red Cell Distribution Width 20.1H, Platelet Count 140L, Mean Platelet Volume 7.9, Neutrophils (%) (Auto) 43.6L, Lymphocytes (%) (Auto) 41.4, Monocytes (%) (Auto) 9.3, Eosinophils (%) (Auto) 4.4H, Basophils (%) (Auto) 1.3, Sodium Level 140, Potassium Level 4.1, Chloride Level 103, Carbon Dioxide Level 27, Anion Gap 10, Blood Urea Nitrogen 9, Creatinine 0.9, Estimat Glomerular Filtration Rate > 60, Glucose Level 149H, Calcium Level 8.3L Height (Feet): 5 Height (Inches): 4.00 Weight (Pounds): 172 General Appearance: no apparent distress Neck: normal alignment Cardiovascular: normal rate Respiratory/Chest: lungs clear Abdomen: normal bowel sounds Pelvis: normal external exam Objective Current Medications Medications (Trade) Dose Ordered Sig/Fortino Route PRN Reason Start Time Stop Time Status Last Admin Dose Admin Acetaminophen (Tylenol) 650 mg Q6H PRN ORAL Mild Pain/Temp > 100.5 02/26/19 05:15 03/28/19 05:14 03/02/19 19:41 Acetaminophen/ Hydrocodone Bitart ([place] 5/325) 1 tab Q6H PRN ORAL For Pain 02/26/19 05:15 03/05/19 05:14 Albuterol/ Ipratropium (Albuterol/ Ipratropium) 3 ml Q4HRT HHN 03/01/19 15:00 03/06/19 14:59 03/02/19 19:50 Atorvastatin Calcium (Lipitor) 40 mg BEDTIME ORAL 02/26/19 21:00 03/28/19 20:59 03/02/19 21:08 Clopidogrel Bisulfate (Plavix) 75 mg DAILY ORAL 02/26/19 09:00 03/28/19 08:59 03/02/19 09:31 Dextrose (Dextrose 50%) 25 ml Q30M PRN IV Hypoglycemia 02/26/19 05:45 03/28/19 05:44 Ertapenem 1 gm/ Sodium Chloride 55 ml @ 110 mls/hr Q24H IVPB 02/28/19 10:00 03/09/19 09:59 03/02/19 09:32 Fluoxetine HCl (PROzac) 40 mg DAILY ORAL 02/26/19 09:00 03/28/19 08:59 03/02/19 09:32 Folic Acid (Folate) 1 mg DAILY ORAL 02/26/19 09:00 03/28/19 08:59 03/02/19 09:30 Gabapentin (Neurontin) 300 mg BEDTIME ORAL 02/26/19 21:00 03/28/19 20:59 03/02/19 21:08 Heparin Sodium (Porcine) (Heparin 5000 units/ml) 5,000 units EVERY 12 HOURS SUBQ 02/26/19 09:00 03/28/19 08:59 03/01/19 20:26 Hydrocortisone (Cortef) 5 mg BEFORE DINNER ORAL 03/01/19 16:30 03/30/19 06:29 03/02/19 17:11 Hydrocortisone (Cortef) 10 mg DAILY ORAL 03/01/19 09:00 03/28/19 21:29 03/02/19 09:31 Insulin Aspart (NovoLOG) BEFORE MEALS AND HS SUBQ 02/26/19 06:30 03/28/19 06:29 03/02/19 21:11 Iopamidol (Isovue-300 100ml) 100 ml NOW PRN INJ Radiology Procedure 03/01/19 12:45 03/03/19 12:45 Lidocaine (Xylocaine 1% MPF 5ml) 10 ml Q4H PRN HHN cough 03/01/19 12:45 03/31/19 12:44 Losartan Potassium (Cozaar) 50 mg DAILY ORAL 02/26/19 09:00 03/28/19 08:59 03/01/19 09:50 Metformin HCl (Glucophage) 1,000 mg BID ORAL 02/28/19 09:00 03/30/19 08:59 03/02/19 17:11 Methotrexate (metHOTREXate) 2.5 mg ONCE A WEEK ORAL 02/28/19 09:00 03/28/19 09:01 02/28/19 08:22 Ondansetron HCl (Zofran) 4 mg Q4HR PRN IVP Nausea & Vomiting 02/26/19 05:15 03/28/19 05:14 02/27/19 20:26 Pioglitazone HCl (Actos) 45 mg ACBREAKFAST ORAL 02/28/19 06:45 03/30/19 06:44 03/01/19 06:45 Promethazine HCl/ Codeine (Phenergan with Codeine) 5 ml Q4H PRN ORAL For Cough 02/28/19 17:25 03/30/19 17:24 03/02/19 23:13 Seth Velazquez MD Mar 03, 2019 06:49
[2019-03-03] MEDS: NovoLOG Insulin Flexpen SUBQ SCH ×4 (07:01→20:48)
--- NOTE | 2019-03-03 07:30 | NUR ---
HAND-OFF: Report given to YARELIS GONSALES.
--- NOTE | 2019-03-03 07:36 | NUR ---
NURSE NOTES: Patient is alert and oriented X4. Patient is eating breakfast. Patient is on room air. IV is intact. Bed is locked, in lowest position, and call light is within reach. Will continue to monitor.
[2019-03-03 08:00] VITALS: BP 134/71
[2019-03-03] MEDS: Losartan 50mg tab ORAL SCH (08:44)
[2019-03-03] MEDS: metFORMIN 500mg tab ORAL SCH ×2 (08:44→17:12)
[2019-03-03] MEDS: Heparin 5000 units/ml inj SUBQ SCH ×2 (08:44→20:38)
--- NOTE | 2019-03-03 09:09 | Infectious Diseases Prog Note ---
Assessment/Plan Assessment/Plan 68 yo female with pmhx of HTN and DM who transferred from [place] on 02/25/19 with urinary frequency. Pyelonephritis - Recurrent UTI Treated multiple time in the past year Fever at home, N/V left CVA tenderness Urine Cx 02/25/19 - GNR No Fever No leukocytosis DM PLAN - Continue Ertapenem 1g Qday #4/ ( End date 03/06/19) - 02/28/19 SP ceftriaxone #3 - Monitor CBC and Temps - Will need to f/u with her Urologist and ID MD for recurrent UTI We will continue to follow the patient during this hospitalization. Subjective Allergies: Coded Allergies: LATEX (Verified Allergy, Intermediate, 02/26/19) Subjective Afebrile No leukocytosis reports that her cough is much improved with breathing treatment Objective Vital Signs Last 24 Hour Vital Signs Date Time Temp Pulse Resp B/P (MAP) Pulse Ox O2 Delivery O2 Flow Rate FiO2 03/03/19 08:44 134/71 03/03/19 07:30 79 19 100 Room Air 21 03/03/19 07:21 78 19 97 Room Air 21 03/03/19 04:00 97.7 74 18 145/86 (105) 97 03/03/19 03:42 Room Air 21 03/03/19 03:40 Room Air 21 03/03/19 00:00 97.5 100 18 116/57 (76) 98 03/02/19 23:27 Room Air 21 03/02/19 23:27 Room Air 21 03/02/19 21:00 Room Air 03/02/19 20:11 98.6 03/02/19 20:00 98.6 84 18 147/79 (101) 97 03/02/19 19:59 86 20 100 Room Air 21 03/02/19 19:47 86 20 99 Room Air 21 03/02/19 16:00 98.7 96 20 127/72 (90) 95 03/02/19 15:25 89 19 100 Room Air 21 03/02/19 15:15 86 16 97 Room Air 21 03/02/19 12:00 98.0 101 20 153/71 (98) 96 03/02/19 11:35 81 17 99 Room Air 21 03/02/19 11:23 80 19 97 Room Air 21 Height (Feet): 5 Height (Inches): 4.00 Weight (Pounds): 172 Objective Gen: NAD, well appearing HEENT: NCAT, MMM, EOMI LUNGS: CTAB, No Wheezing CARDS: RRR, S1, S2, No M/R/G, ABD: Soft, NT, ND, + BS Laboratory Tests Test 03/03/19 05:30 White Blood Count 4.1 K/UL (4.8-10.8) L Red Blood Count 4.06 M/UL (4.20-5.40) L Hemoglobin 10.9 G/DL (12.0-16.0) L Hematocrit 34.2 % (37.0-47.0) L Mean Corpuscular Volume 84 FL (80-99) Mean Corpuscular Hemoglobin 26.9 PG (27.0-31.0) L Mean Corpuscular Hemoglobin Concent 31.9 G/DL (32.0-36.0) L Red Cell Distribution Width 20.1 % (11.6-14.8) H Platelet Count 140 K/UL (150-450) L Mean Platelet Volume 7.9 FL (6.5-10.1) Neutrophils (%) (Auto) 43.6 % (45.0-75.0) L Lymphocytes (%) (Auto) 41.4 % (20.0-45.0) Monocytes (%) (Auto) 9.3 % (1.0-10.0) Eosinophils (%) (Auto) 4.4 % (0.0-3.0) H Basophils (%) (Auto) 1.3 % (0.0-2.0) Sodium Level 140 MMOL/L (136-145) Potassium Level 4.1 MMOL/L (3.5-5.1) Chloride Level 103 MMOL/L (98-107) Carbon Dioxide Level 27 MMOL/L (21-32) Anion Gap 10 mmol/L (5-15) Blood Urea Nitrogen 9 mg/dL (7-18) Creatinine 0.9 MG/DL (0.55-1.30) Estimat Glomerular Filtration Rate > 60 mL/min (>60) Glucose Level 149 MG/DL (74-106) H Calcium Level 8.3 MG/DL (8.5-10.1) L Current Medications Medications (Trade) Dose Ordered Sig/Fortino Route PRN Reason Start Time Stop Time Status Last Admin Dose Admin Acetaminophen (Tylenol) 650 mg Q6H PRN ORAL Mild Pain/Temp > 100.5 02/26/19 05:15 03/28/19 05:14 03/02/19 19:41 Acetaminophen/ Hydrocodone Bitart ([place] 5/325) 1 tab Q6H PRN ORAL For Pain 02/26/19 05:15 03/05/19 05:14 Albuterol/ Ipratropium (Albuterol/ Ipratropium) 3 ml Q4HRT HHN 03/01/19 15:00 03/06/19 14:59 03/03/19 07:21 Atorvastatin Calcium (Lipitor) 40 mg BEDTIME ORAL 02/26/19 21:00 03/28/19 20:59 03/02/19 21:08 Clopidogrel Bisulfate (Plavix) 75 mg DAILY ORAL 02/26/19 09:00 03/28/19 08:59 03/03/19 08:43 Dextrose (Dextrose 50%) 25 ml Q30M PRN IV Hypoglycemia 02/26/19 05:45 03/28/19 05:44 Ertapenem 1 gm/ Sodium Chloride 55 ml @ 110 mls/hr Q24H IVPB 02/28/19 10:00 03/09/19 09:59 03/02/19 09:32 Fluoxetine HCl (PROzac) 40 mg DAILY ORAL 02/26/19 09:00 03/28/19 08:59 03/03/19 08:44 Folic Acid (Folate) 1 mg DAILY ORAL 02/26/19 09:00 03/28/19 08:59 03/03/19 08:43 Gabapentin (Neurontin) 300 mg BEDTIME ORAL 02/26/19 21:00 03/28/19 20:59 03/02/19 21:08 Heparin Sodium (Porcine) (Heparin 5000 units/ml) 5,000 units EVERY 12 HOURS SUBQ 02/26/19 09:00 03/28/19 08:59 03/01/19 20:26 Hydrocortisone (Cortef) 5 mg BEFORE DINNER ORAL 03/01/19 16:30 03/30/19 06:29 03/02/19 17:11 Hydrocortisone (Cortef) 10 mg DAILY ORAL 03/01/19 09:00 03/28/19 21:29 03/03/19 08:44 Insulin Aspart (NovoLOG) BEFORE MEALS AND HS SUBQ 02/26/19 06:30 03/28/19 06:29 03/03/19 07:01 Iopamidol (Isovue-300 100ml) 100 ml NOW PRN INJ Radiology Procedure 03/01/19 12:45 03/03/19 12:45 Lidocaine (Xylocaine 1% MPF 5ml) 10 ml Q4H PRN HHN cough 03/01/19 12:45 03/31/19 12:44 Losartan Potassium (Cozaar) 50 mg DAILY ORAL 02/26/19 09:00 03/28/19 08:59 03/03/19 08:44 Metformin HCl (Glucophage) 1,000 mg BID ORAL 02/28/19 09:00 03/30/19 08:59 03/03/19 08:44 Methotrexate (metHOTREXate) 2.5 mg ONCE A WEEK ORAL 02/28/19 09:00 03/28/19 09:01 02/28/19 08:22 Ondansetron HCl (Zofran) 4 mg Q4HR PRN IVP Nausea & Vomiting 02/26/19 05:15 03/28/19 05:14 02/27/19 20:26 Pioglitazone HCl (Actos) 45 mg ACBREAKFAST ORAL 02/28/19 06:45 03/30/19 06:44 03/03/19 07:03 Promethazine HCl/ Codeine (Phenergan with Codeine) 5 ml Q4H PRN ORAL For Cough 02/28/19 17:25 03/30/19 17:24 03/02/19 23:13 Jamshid Chan MD Mar 03, 2019 09:09
[2019-03-03] MEDS: Ertapenem 1 GM in NS 55 ML IVPB SCH (09:25)
--- NOTE | 2019-03-03 10:43 | NUR ---
SS note This SW followed up with patient regarding a home safety evaluation. Patient is ambulatory short distances in hallway with supervision (with walker). This SW recommended short term SNF, while patient declined (prefers to discharge to home). Patient lives alone and has a caregiver coming in three hours per day, Wednesday through Wednesday. Patient will need ongoing P.T with home care recommended if returning home. This Sw recommends caregiver to escort her home as well (and will benefit P.T here more days).
[2019-03-03] MEDS: Promethazine/Codeine 5ml UD ORAL PRN ×2 (11:58→20:35)
[2019-03-03 12:00] VITALS: BP 148/88
--- NOTE | 2019-03-03 14:18 | Pulmonology Progress Note ---
Assessment/Plan Problems: (1) Refractory nausea and vomiting (2) Hypopituitarism (3) UTI (lower urinary tract infection) (4) Rheumatoid arthritis (5) DM (diabetes mellitus) Assessment/Plan asymptomatic feeling better on Ertapenem symptomatic treatment check electrolytes endocrinology note appreciated antitussives sliding scale diabetic diet Subjective ROS Limited/Unobtainable: No Constitutional: Reports: no symptoms HEENT: Repors: no symptoms Allergies: Coded Allergies: LATEX (Verified Allergy, Intermediate, 02/26/19) Objective Last 24 Hour Vital Signs Date Time Temp Pulse Resp B/P (MAP) Pulse Ox O2 Delivery O2 Flow Rate FiO2 03/03/19 12:00 98.2 95 20 148/88 (108) 98 03/03/19 11:35 95 18 100 Room Air 21 03/03/19 11:21 93 18 97 Room Air 21 03/03/19 08:44 134/71 03/03/19 08:30 Room Air 03/03/19 08:00 98.3 94 19 134/71 (92) 97 03/03/19 07:30 79 19 100 Room Air 21 03/03/19 07:21 78 19 97 Room Air 21 03/03/19 04:00 97.7 74 18 145/86 (105) 97 03/03/19 03:42 Room Air 21 03/03/19 03:40 Room Air 21 03/03/19 00:00 97.5 100 18 116/57 (76) 98 03/02/19 23:27 Room Air 21 03/02/19 23:27 Room Air 21 03/02/19 21:00 Room Air 03/02/19 20:11 98.6 03/02/19 20:00 98.6 84 18 147/79 (101) 97 03/02/19 19:59 86 20 100 Room Air 21 03/02/19 19:47 86 20 99 Room Air 21 03/02/19 16:00 98.7 96 20 127/72 (90) 95 03/02/19 15:25 89 19 100 Room Air 21 03/02/19 15:15 86 16 97 Room Air 21 Intake and Output 03/02/19 03/03/19 19:00 07:00 Intake Total 850 ml 180 ml Balance 850 ml 180 ml Intake Oral 850 ml 180 ml # Voids 3 5 Objective General Appearance: WD/WN HEENT: normocephalic, atraumatic Respiratory/Chest: chest wall non-tender, lungs clear Breasts: no masses Cardiovascular: normal rate Abdomen: normal bowel sounds, soft, non tender Extremities: no cyanosis Skin: no rash Laboratory Tests 03/03/19 05:30: White Blood Count 4.1L, Red Blood Count 4.06L, Hemoglobin 10.9L, Hematocrit 34.2L, Mean Corpuscular Volume 84, Mean Corpuscular Hemoglobin 26.9L, Mean Corpuscular Hemoglobin Concent 31.9L, Red Cell Distribution Width 20.1H, Platelet Count 140L, Mean Platelet Volume 7.9, Neutrophils (%) (Auto) 43.6L, Lymphocytes (%) (Auto) 41.4, Monocytes (%) (Auto) 9.3, Eosinophils (%) (Auto) 4.4H, Basophils (%) (Auto) 1.3, Sodium Level 140, Potassium Level 4.1, Chloride Level 103, Carbon Dioxide Level 27, Anion Gap 10, Blood Urea Nitrogen 9, Creatinine 0.9, Estimat Glomerular Filtration Rate > 60, Glucose Level 149H, Calcium Level 8.3L Current Medications Medications (Trade) Dose Ordered Sig/Fortino Route PRN Reason Start Time Stop Time Status Last Admin Dose Admin Acetaminophen (Tylenol) 650 mg Q6H PRN ORAL Mild Pain/Temp > 100.5 02/26/19 05:15 03/28/19 05:14 03/02/19 19:41 Acetaminophen/ Hydrocodone Bitart ([place] 5/325) 1 tab Q6H PRN ORAL For Pain 02/26/19 05:15 03/05/19 05:14 Albuterol/ Ipratropium (Albuterol/ Ipratropium) 3 ml Q4HRT HHN 03/01/19 15:00 03/06/19 14:59 03/03/19 11:21 Atorvastatin Calcium (Lipitor) 40 mg BEDTIME ORAL 02/26/19 21:00 03/28/19 20:59 03/02/19 21:08 Clopidogrel Bisulfate (Plavix) 75 mg DAILY ORAL 02/26/19 09:00 03/28/19 08:59 03/03/19 08:43 Dextrose (Dextrose 50%) 25 ml Q30M PRN IV Hypoglycemia 02/26/19 05:45 03/28/19 05:44 Ertapenem 1 gm/ Sodium Chloride 55 ml @ 110 mls/hr Q24H IVPB 02/28/19 10:00 03/09/19 09:59 03/03/19 09:25 Fluoxetine HCl (PROzac) 40 mg DAILY ORAL 02/26/19 09:00 03/28/19 08:59 03/03/19 08:44 Folic Acid (Folate) 1 mg DAILY ORAL 02/26/19 09:00 03/28/19 08:59 03/03/19 08:43 Gabapentin (Neurontin) 300 mg BEDTIME ORAL 02/26/19 21:00 03/28/19 20:59 03/02/19 21:08 Heparin Sodium (Porcine) (Heparin 5000 units/ml) 5,000 units EVERY 12 HOURS SUBQ 02/26/19 09:00 03/28/19 08:59 03/01/19 20:26 Hydrocortisone (Cortef) 5 mg BEFORE DINNER ORAL 03/01/19 16:30 03/30/19 06:29 03/02/19 17:11 Hydrocortisone (Cortef) 10 mg DAILY ORAL 03/01/19 09:00 03/28/19 21:29 03/03/19 08:44 Insulin Aspart (NovoLOG) BEFORE MEALS AND HS SUBQ 02/26/19 06:30 03/28/19 06:29 03/03/19 11:59 Lidocaine (Xylocaine 1% MPF 5ml) 10 ml Q4H PRN HHN cough 03/01/19 12:45 03/31/19 12:44 Losartan Potassium (Cozaar) 50 mg DAILY ORAL 02/26/19 09:00 03/28/19 08:59 03/03/19 08:44 Metformin HCl (Glucophage) 1,000 mg BID ORAL 02/28/19 09:00 03/30/19 08:59 03/03/19 08:44 Methotrexate (metHOTREXate) 15 mg ONCE ORAL 03/03/19 15:00 03/03/19 17:00 Methotrexate (metHOTREXate) 17.5 mg QWEEK ORAL 03/07/19 09:00 03/12/19 08:59 Ondansetron HCl (Zofran) 4 mg Q4HR PRN IVP Nausea & Vomiting 02/26/19 05:15 03/28/19 05:14 02/27/19 20:26 Pioglitazone HCl (Actos) 45 mg ACBREAKFAST ORAL 02/28/19 06:45 03/30/19 06:44 03/03/19 07:03 Promethazine HCl/ Codeine (Phenergan with Codeine) 5 ml Q4H PRN ORAL For Cough 02/28/19 17:25 03/30/19 17:24 03/03/19 11:58 Jesu Griffin MD Mar 03, 2019 14:18
[2019-03-03] MEDS ORDERED: ERTAPENEM1 GM IJ (14:21)
[2019-03-03] MEDS ORDERED: Tubing IV Secondary IV ONE (15:51)
[2019-03-03 16:00] VITALS: BP 134/79
--- NOTE | 2019-03-03 16:17 | Internal Med Progress Note ---
Subjective Physician Name Dale Villanueva Attending Physician Dale Villanueva MD Current Medications Medications (Trade) Dose Ordered Sig/Fortino Route PRN Reason Start Time Stop Time Status Last Admin Dose Admin Acetaminophen (Tylenol) 650 mg Q6H PRN ORAL Mild Pain/Temp > 100.5 02/26/19 05:15 03/28/19 05:14 03/02/19 19:41 Acetaminophen/ Hydrocodone Bitart ([place] 5/325) 1 tab Q6H PRN ORAL For Pain 02/26/19 05:15 03/05/19 05:14 Albuterol/ Ipratropium (Albuterol/ Ipratropium) 3 ml Q4HRT HHN 03/01/19 15:00 03/06/19 14:59 03/03/19 11:21 Atorvastatin Calcium (Lipitor) 40 mg BEDTIME ORAL 02/26/19 21:00 03/28/19 20:59 03/02/19 21:08 Clopidogrel Bisulfate (Plavix) 75 mg DAILY ORAL 02/26/19 09:00 03/28/19 08:59 03/03/19 08:43 Dextrose (Dextrose 50%) 25 ml Q30M PRN IV Hypoglycemia 02/26/19 05:45 03/28/19 05:44 Ertapenem 1 gm/ Sodium Chloride 55 ml @ 110 mls/hr Q24H IVPB 02/28/19 10:00 03/09/19 09:59 03/03/19 09:25 Fluoxetine HCl (PROzac) 40 mg DAILY ORAL 02/26/19 09:00 03/28/19 08:59 03/03/19 08:44 Folic Acid (Folate) 1 mg DAILY ORAL 02/26/19 09:00 03/28/19 08:59 03/03/19 08:43 Gabapentin (Neurontin) 300 mg BEDTIME ORAL 02/26/19 21:00 03/28/19 20:59 03/02/19 21:08 Heparin Sodium (Porcine) (Heparin 5000 units/ml) 5,000 units EVERY 12 HOURS SUBQ 02/26/19 09:00 03/28/19 08:59 03/01/19 20:26 Hydrocortisone (Cortef) 5 mg BEFORE DINNER ORAL 03/01/19 16:30 03/30/19 06:29 03/02/19 17:11 Hydrocortisone (Cortef) 10 mg DAILY ORAL 03/01/19 09:00 03/28/19 21:29 03/03/19 08:44 Insulin Aspart (NovoLOG) BEFORE MEALS AND HS SUBQ 02/26/19 06:30 03/28/19 06:29 03/03/19 11:59 Lidocaine (Xylocaine 1% MPF 5ml) 10 ml Q4H PRN HHN cough 03/01/19 12:45 03/31/19 12:44 Losartan Potassium (Cozaar) 50 mg DAILY ORAL 02/26/19 09:00 03/28/19 08:59 03/03/19 08:44 Metformin HCl (Glucophage) 1,000 mg BID ORAL 02/28/19 09:00 03/30/19 08:59 03/03/19 08:44 Methotrexate (metHOTREXate) 15 mg ONCE ORAL 03/03/19 15:00 03/03/19 17:00 03/03/19 14:54 Methotrexate (metHOTREXate) 17.5 mg QWEEK ORAL 03/07/19 09:00 03/12/19 08:59 Ondansetron HCl (Zofran) 4 mg Q4HR PRN IVP Nausea & Vomiting 02/26/19 05:15 03/28/19 05:14 02/27/19 20:26 Pioglitazone HCl (Actos) 45 mg ACBREAKFAST ORAL 02/28/19 06:45 03/30/19 06:44 03/03/19 07:03 Promethazine HCl/ Codeine (Phenergan with Codeine) 5 ml Q4H PRN ORAL For Cough 02/28/19 17:25 03/30/19 17:24 03/03/19 11:58 Allergies: Coded Allergies: LATEX (Verified Allergy, Intermediate, 02/26/19) Subjective awake, alert, responsive, NAD, C/O weakness. Objective Last Vital Signs Date Time Temp Pulse Resp B/P (MAP) Pulse Ox O2 Delivery O2 Flow Rate FiO2 03/03/19 14:35 Room Air 21 03/03/19 12:00 98.2 95 20 148/88 (108) 98 Laboratory Tests Test 03/03/19 05:30 White Blood Count 4.1 K/UL (4.8-10.8) L Red Blood Count 4.06 M/UL (4.20-5.40) L Hemoglobin 10.9 G/DL (12.0-16.0) L Hematocrit 34.2 % (37.0-47.0) L Mean Corpuscular Volume 84 FL (80-99) Mean Corpuscular Hemoglobin 26.9 PG (27.0-31.0) L Mean Corpuscular Hemoglobin Concent 31.9 G/DL (32.0-36.0) L Red Cell Distribution Width 20.1 % (11.6-14.8) H Platelet Count 140 K/UL (150-450) L Mean Platelet Volume 7.9 FL (6.5-10.1) Neutrophils (%) (Auto) 43.6 % (45.0-75.0) L Lymphocytes (%) (Auto) 41.4 % (20.0-45.0) Monocytes (%) (Auto) 9.3 % (1.0-10.0) Eosinophils (%) (Auto) 4.4 % (0.0-3.0) H Basophils (%) (Auto) 1.3 % (0.0-2.0) Sodium Level 140 MMOL/L (136-145) Potassium Level 4.1 MMOL/L (3.5-5.1) Chloride Level 103 MMOL/L (98-107) Carbon Dioxide Level 27 MMOL/L (21-32) Anion Gap 10 mmol/L (5-15) Blood Urea Nitrogen 9 mg/dL (7-18) Creatinine 0.9 MG/DL (0.55-1.30) Estimat Glomerular Filtration Rate > 60 mL/min (>60) Glucose Level 149 MG/DL (74-106) H Calcium Level 8.3 MG/DL (8.5-10.1) L Intake and Output 03/02/19 03/03/19 19:00 07:00 Intake Total 850 ml 180 ml Balance 850 ml 180 ml Intake Oral 850 ml 180 ml # Voids 3 5 Objective General: No acute distress, awake and alert HEENT: NCAT, sclera anicteric, PERRL, EOMI. Neck: Supple, no significant jugular venous distention, Lungs: Fair inspiratory effort, decrease air on bases no Wheeze or Rales. Heart: Regular rate and rhythm, normal S1/S2, no murmurs Abdomen: soft, nontender, nondistended. Normoactive bowel sounds. Extremities: No Cyanosis , clubbing or edema. Neuro: A&O x 3, Able to move all extremities slowly. Skin: warm, no rashes or lesions Psych: Normal mood and affect Assessment/Plan Assessment/Plan 1. Acute ESBL E.Coli UTI. 2. Hypopituitarism. 3. Rheumatoid arthritis. 4. Diabetes type 2. 5. Hypertension. 6. Hypercholesteremia. TREATMENT: 1. Urinary tract infection/urinary frequency/urgency-ESBL E. Coli Antibiotic=Ertapenem 2. Diabetes type 2. NovoLog sliding scale has been instituted. 3. Hypertension. Continue losartan as above. 4. Hypercholesterolemia. Continue Crestor as above. 5. Renal U/S=non obstructing renal calyceal calculi. no hydronephrosis 6. Full code 7. heparin SQ for DVT prophylaxes. DC planning . Dale Villanueva MD Mar 03, 2019 16:17
--- NOTE | 2019-03-03 16:53 | NUR ---
ACCOUNTING FILE CLERK NOTES PT ACCEPTED TO A&P . IV INFUSION TO DELIVER IV ATB. SERVICE TO START UP ON 03/04/19. TO CALL PT TO SET UP TIME. OK TO DC PT. A&P [phone]
--- NOTE | 2019-03-03 17:07 | NUR ---
NURSE NOTES: Venous duplex of BLE noted. Dr. Villanueva contacted to notify of active discharge order. Per Dr. Villanueva hold discharge until patient gets Venous duplex done.
--- NOTE | 2019-03-03 19:30 | NUR ---
HAND-OFF: Report given to YARELIS Johnson.
[2019-03-03 20:00] VITALS: BP 131/74
--- NOTE | 2019-03-03 20:03 | NUR ---
NURSE NOTES: Pt received in bed at lowest position, call light within reach, able to make needs known, no c/o pain or signs of distress at the moment, venous duplex has not been done yet. will continue to monitor.
[2019-03-03] MEDS: Atorvastatin 80mg tab ORAL SCH (20:35)
[2019-03-04] VITALS: BP 124/71
[2019-03-04] MEDS: Albuterol/Ipratropium 3ml neb HHN SCH ×6 (03:00→23:00)
[2019-03-04 04:00] VITALS: BP 156/93
[2019-03-04] MEDS: NovoLOG Insulin Flexpen SUBQ SCH ×4 (06:30→21:25)
--- NOTE | 2019-03-04 07:30 | NUR ---
NURSE NOTES: Received pt from YARELIS HUDSON. Pt is alert and orient x4. pt is in RA . No SOB or acute respiratory distress noted. Pt has intact iv access LFA 22G SL. Pt has schedule for kalee duplex, pt is aware. All needs attended. bed is locked and is in the lowest position. call light within easy reach. will continue to monitor.
--- NOTE | 2019-03-04 07:34 | NUR ---
HAND-OFF: Report given to YARELIS Everett. Endorsed that pt is to have Venous Duplex
[2019-03-04 07:57] VITALS: BP 149/80
--- NOTE | 2019-03-04 08:00 | General Progress Note ---
Assessment/Plan Problem List: (1) DM (diabetes mellitus) ICD Codes: E11.9 - DM (diabetes mellitus) SNOMED: 89998510 (2) UTI (lower urinary tract infection) ICD Codes: N39.0 - UTI (lower urinary tract infection) SNOMED: 1236450 (3) Hypopituitarism ICD Codes: E23.0 - Hypopituitarism SNOMED: 70067155 (4) Rheumatoid arthritis ICD Codes: M06.9 - Rheumatoid arthritis, unspecified SNOMED: 33527768 Assessment/Plan continue Cortef 10 mg am and 5 mg pm - maintenance dose continue Metformin and Actos - hold Glipizide for now - continue NISS ac / hs Subjective Allergies: Coded Allergies: LATEX (Verified Allergy, Intermediate, 02/26/19) All Systems: reviewed and negative except above Subjective events noted complaining of urine incontinence Item Value Date Time Bedside Blood Glucose 114 mg/dl 03/04/19 0630 Bedside Blood Glucose 160 mg/dl H 03/03/19 2100 Bedside Blood Glucose 173 mg/dl H 03/03/19 1714 Bedside Blood Glucose 191 mg/dl H 03/03/19 1159 Bedside Blood Glucose 168 mg/dl H 03/03/19 0701 Objective Last 24 Hour Vital Signs Date Time Temp Pulse Resp B/P (MAP) Pulse Ox O2 Delivery O2 Flow Rate FiO2 03/04/19 07:57 98.1 80 19 149/80 (103) 100 03/04/19 06:35 Room Air 21 03/04/19 06:35 Room Air 03/04/19 04:00 98.0 74 18 156/93 (114) 95 03/04/19 03:21 Room Air 21 03/04/19 03:21 Room Air 03/04/19 00:00 98.2 77 18 124/71 (88) 96 03/03/19 23:24 Room Air 21 03/03/19 23:24 Room Air 21 03/03/19 21:00 Room Air 03/03/19 20:00 98.7 80 18 131/74 (93) 98 03/03/19 19:26 Room Air 21 03/03/19 19:26 Room Air 21 03/03/19 16:00 97.9 96 20 134/79 (97) 97 03/03/19 14:35 Room Air 21 03/03/19 14:35 Room Air 21 03/03/19 12:00 98.2 95 20 148/88 (108) 98 03/03/19 11:35 95 18 100 Room Air 21 03/03/19 11:21 93 18 97 Room Air 21 03/03/19 08:44 134/71 03/03/19 08:30 Room Air 03/03/19 08:00 98.3 94 19 134/71 (92) 97 Intake and Output 03/03/19 03/04/19 18:59 06:59 Intake Total 1000 ml Balance 1000 ml Intake Oral 1000 ml # Voids 4 2 # Bowel Movements 1 Height (Feet): 5 Height (Inches): 4.00 Weight (Pounds): 172 General Appearance: no apparent distress Neck: normal alignment Cardiovascular: normal rate Respiratory/Chest: lungs clear, respiratory distress Pelvis: normal external exam Edema: no edema noted Arm (L), no edema noted Arm (R), no edema noted Leg (L), no edema noted Leg (R), no edema noted Pedal (L), no edema noted Pedal (R), no edema noted Generalized Objective Current Medications Medications (Trade) Dose Ordered Sig/Fortino Route PRN Reason Start Time Stop Time Status Last Admin Dose Admin Acetaminophen (Tylenol) 650 mg Q6H PRN ORAL Mild Pain/Temp > 100.5 02/26/19 05:15 03/28/19 05:14 03/03/19 20:34 Acetaminophen/ Hydrocodone Bitart ([place] 5/325) 1 tab Q6H PRN ORAL For Pain 02/26/19 05:15 03/05/19 05:14 Albuterol/ Ipratropium (Albuterol/ Ipratropium) 3 ml Q4HRT HHN 03/01/19 15:00 03/06/19 14:59 03/03/19 11:21 Atorvastatin Calcium (Lipitor) 40 mg BEDTIME ORAL 02/26/19 21:00 03/28/19 20:59 03/03/19 20:35 Clopidogrel Bisulfate (Plavix) 75 mg DAILY ORAL 02/26/19 09:00 03/28/19 08:59 03/03/19 08:43 Dextrose (Dextrose 50%) 25 ml Q30M PRN IV Hypoglycemia 02/26/19 05:45 03/28/19 05:44 Ertapenem 1 gm/ Sodium Chloride 55 ml @ 110 mls/hr Q24H IVPB 02/28/19 10:00 03/09/19 09:59 03/03/19 09:25 Fluoxetine HCl (PROzac) 40 mg DAILY ORAL 02/26/19 09:00 03/28/19 08:59 03/03/19 08:44 Folic Acid (Folate) 1 mg DAILY ORAL 02/26/19 09:00 03/28/19 08:59 03/03/19 08:43 Gabapentin (Neurontin) 300 mg BEDTIME ORAL 02/26/19 21:00 03/28/19 20:59 03/03/19 20:32 Heparin Sodium (Porcine) (Heparin 5000 units/ml) 5,000 units EVERY 12 HOURS SUBQ 02/26/19 09:00 03/28/19 08:59 03/01/19 20:26 Hydrocortisone (Cortef) 5 mg BEFORE DINNER ORAL 03/01/19 16:30 03/30/19 06:29 03/03/19 17:12 Hydrocortisone (Cortef) 10 mg DAILY ORAL 03/01/19 09:00 03/28/19 21:29 03/03/19 08:44 Insulin Aspart (NovoLOG) BEFORE MEALS AND HS SUBQ 02/26/19 06:30 03/28/19 06:29 03/03/19 20:48 Lidocaine (Xylocaine 1% MPF 5ml) 10 ml Q4H PRN HHN cough 03/01/19 12:45 03/31/19 12:44 Losartan Potassium (Cozaar) 50 mg DAILY ORAL 02/26/19 09:00 03/28/19 08:59 03/03/19 08:44 Metformin HCl (Glucophage) 1,000 mg BID ORAL 02/28/19 09:00 03/30/19 08:59 03/03/19 17:12 Methotrexate (metHOTREXate) 17.5 mg QWEEK ORAL 03/07/19 09:00 03/12/19 08:59 Ondansetron HCl (Zofran) 4 mg Q4HR PRN IVP Nausea & Vomiting 02/26/19 05:15 03/28/19 05:14 02/27/19 20:26 Pioglitazone HCl (Actos) 45 mg ACBREAKFAST ORAL 02/28/19 06:45 03/30/19 06:44 03/04/19 07:31 Promethazine HCl/ Codeine (Phenergan with Codeine) 5 ml Q4H PRN ORAL For Cough 02/28/19 17:25 03/30/19 17:24 03/03/19 20:35 Seth Velazquez MD Mar 04, 2019 08:00
[2019-03-04] MEDS: Heparin 5000 units/ml inj SUBQ SCH ×2 (09:00→21:00)
--- NOTE | 2019-03-04 09:09 | Infectious Diseases Prog Note ---
Assessment/Plan Assessment/Plan 68 yo female with pmhx of HTN and DM who transferred from [place] on 02/25/19 with urinary frequency. Pyelonephritis - Recurrent UTI Treated multiple time in the past year Fever at home, N/V left CVA tenderness Urine Cx 02/25/19 - GNR No Fever No leukocytosis DM PLAN - Continue Ertapenem 1g Qday #5/7 ( End date 03/06/19) - 02/28/19 SP ceftriaxone #3 - Monitor CBC and Temps - Will need to f/u with her Urologist and ID MD for recurrent UTI We will continue to follow the patient during this hospitalization. Subjective Allergies: Coded Allergies: LATEX (Verified Allergy, Intermediate, 02/26/19) Subjective Afebrile ALISE Objective Vital Signs Last 24 Hour Vital Signs Date Time Temp Pulse Resp B/P (MAP) Pulse Ox O2 Delivery O2 Flow Rate FiO2 03/04/19 07:57 98.1 80 19 149/80 (103) 100 03/04/19 06:35 Room Air 21 03/04/19 06:35 Room Air 21 03/04/19 04:00 98.0 74 18 156/93 (114) 95 03/04/19 03:21 Room Air 21 03/04/19 03:21 Room Air 21 03/04/19 00:00 98.2 77 18 124/71 (88) 96 03/03/19 23:24 Room Air 21 03/03/19 23:24 Room Air 21 03/03/19 21:00 Room Air 03/03/19 20:00 98.7 80 18 131/74 (93) 98 03/03/19 19:26 Room Air 21 03/03/19 19:26 Room Air 21 03/03/19 16:00 97.9 96 20 134/79 (97) 97 03/03/19 14:35 Room Air 21 03/03/19 14:35 Room Air 21 03/03/19 12:00 98.2 95 20 148/88 (108) 98 03/03/19 11:35 95 18 100 Room Air 21 03/03/19 11:21 93 18 97 Room Air 21 Height (Feet): 5 Height (Inches): 4.00 Weight (Pounds): 172 Objective Gen: NAD HEENT: NCAT, MMM, EOMI LUNGS: CTAB, No Wheezing CARDS: RRR, S1, S2, No M/R/G, ABD: Soft, NT, ND, + BS Current Medications Medications (Trade) Dose Ordered Sig/Fortino Route PRN Reason Start Time Stop Time Status Last Admin Dose Admin Acetaminophen (Tylenol) 650 mg Q6H PRN ORAL Mild Pain/Temp > 100.5 02/26/19 05:15 03/28/19 05:14 03/03/19 20:34 Acetaminophen/ Hydrocodone Bitart ([place] 5/325) 1 tab Q6H PRN ORAL For Pain 02/26/19 05:15 03/05/19 05:14 Albuterol/ Ipratropium (Albuterol/ Ipratropium) 3 ml Q4HRT HHN 03/01/19 15:00 03/06/19 14:59 03/03/19 11:21 Atorvastatin Calcium (Lipitor) 40 mg BEDTIME ORAL 02/26/19 21:00 03/28/19 20:59 03/03/19 20:35 Clopidogrel Bisulfate (Plavix) 75 mg DAILY ORAL 02/26/19 09:00 03/28/19 08:59 03/03/19 08:43 Dextrose (Dextrose 50%) 25 ml Q30M PRN IV Hypoglycemia 02/26/19 05:45 03/28/19 05:44 Ertapenem 1 gm/ Sodium Chloride 55 ml @ 110 mls/hr Q24H IVPB 02/28/19 10:00 03/09/19 09:59 03/03/19 09:25 Fluoxetine HCl (PROzac) 40 mg DAILY ORAL 02/26/19 09:00 03/28/19 08:59 03/03/19 08:44 Folic Acid (Folate) 1 mg DAILY ORAL 02/26/19 09:00 03/28/19 08:59 03/03/19 08:43 Gabapentin (Neurontin) 300 mg BEDTIME ORAL 02/26/19 21:00 03/28/19 20:59 03/03/19 20:32 Heparin Sodium (Porcine) (Heparin 5000 units/ml) 5,000 units EVERY 12 HOURS SUBQ 02/26/19 09:00 03/28/19 08:59 03/01/19 20:26 Hydrocortisone (Cortef) 5 mg BEFORE DINNER ORAL 03/01/19 16:30 03/30/19 06:29 03/03/19 17:12 Hydrocortisone (Cortef) 10 mg DAILY ORAL 03/01/19 09:00 03/28/19 21:29 03/03/19 08:44 Insulin Aspart (NovoLOG) BEFORE MEALS AND HS SUBQ 02/26/19 06:30 03/28/19 06:29 03/03/19 20:48 Lidocaine (Xylocaine 1% MPF 5ml) 10 ml Q4H PRN HHN cough 03/01/19 12:45 03/31/19 12:44 Losartan Potassium (Cozaar) 50 mg DAILY ORAL 02/26/19 09:00 03/28/19 08:59 03/03/19 08:44 Metformin HCl (Glucophage) 1,000 mg BID ORAL 02/28/19 09:00 03/30/19 08:59 03/03/19 17:12 Methotrexate (metHOTREXate) 17.5 mg QWEEK ORAL 03/07/19 09:00 03/12/19 08:59 Ondansetron HCl (Zofran) 4 mg Q4HR PRN IVP Nausea & Vomiting 02/26/19 05:15 03/28/19 05:14 02/27/19 20:26 Pioglitazone HCl (Actos) 45 mg ACBREAKFAST ORAL 02/28/19 06:45 03/30/19 06:44 03/04/19 07:31 Promethazine HCl/ Codeine (Phenergan with Codeine) 5 ml Q4H PRN ORAL For Cough 02/28/19 17:25 03/30/19 17:24 03/03/19 20:35 Jamshid Chan MD Mar 04, 2019 09:09
[2019-03-04] MEDS: metFORMIN 500mg tab ORAL SCH ×2 (09:23→17:00)
[2019-03-04] MEDS: Promethazine/Codeine 5ml UD ORAL PRN ×3 (09:23→21:18)
[2019-03-04] MEDS: Losartan 50mg tab ORAL SCH (09:24)
[2019-03-04] MEDS: Ertapenem 1 GM in NS 55 ML IVPB SCH (09:27)
[2019-03-04 12:00] VITALS: BP 153/89
--- NOTE | 2019-03-04 13:22 | NUR ---
NURSE NOTES: Moon duplex done and the result is negative per electronics engineering technician, will continue to monitor. Addendum: 03/04/19 at 1404 by Marguerite Perrin RN called Dr villatoro left massage regarding duplex result, waiting call back.
[2019-03-04 16:00] VITALS: BP 158/96
--- NOTE | 2019-03-04 16:00 | NUR ---
NURSE NOTES: Dr villatoro visited pt , he is aware about kalee duplex result, and pt refused to go home during weekend because no body at home on weekend, no new order. will continue to monitor.
--- NOTE | 2019-03-04 16:25 | Internal Med Progress Note ---
Subjective Physician Name Dale Villanueva Attending Physician Dale Villanueva MD Current Medications Medications (Trade) Dose Ordered Sig/Fortino Route PRN Reason Start Time Stop Time Status Last Admin Dose Admin Acetaminophen (Tylenol) 650 mg Q6H PRN ORAL Mild Pain/Temp > 100.5 02/26/19 05:15 03/28/19 05:14 03/03/19 20:34 Acetaminophen/ Hydrocodone Bitart ([place] 5/325) 1 tab Q6H PRN ORAL For Pain 02/26/19 05:15 03/05/19 05:14 Albuterol/ Ipratropium (Albuterol/ Ipratropium) 3 ml Q4HRT HHN 03/01/19 15:00 03/06/19 14:59 03/03/19 11:21 Atorvastatin Calcium (Lipitor) 40 mg BEDTIME ORAL 02/26/19 21:00 03/28/19 20:59 03/03/19 20:35 Clopidogrel Bisulfate (Plavix) 75 mg DAILY ORAL 02/26/19 09:00 03/28/19 08:59 03/04/19 09:24 Dextrose (Dextrose 50%) 25 ml Q30M PRN IV Hypoglycemia 02/26/19 05:45 03/28/19 05:44 Ertapenem 1 gm/ Sodium Chloride 55 ml @ 110 mls/hr Q24H IVPB 02/28/19 10:00 03/09/19 09:59 03/04/19 09:27 Fluoxetine HCl (PROzac) 40 mg DAILY ORAL 02/26/19 09:00 03/28/19 08:59 03/04/19 09:24 Folic Acid (Folate) 1 mg DAILY ORAL 02/26/19 09:00 03/28/19 08:59 03/04/19 09:24 Gabapentin (Neurontin) 300 mg BEDTIME ORAL 02/26/19 21:00 03/28/19 20:59 03/03/19 20:32 Heparin Sodium (Porcine) (Heparin 5000 units/ml) 5,000 units EVERY 12 HOURS SUBQ 02/26/19 09:00 03/28/19 08:59 03/01/19 20:26 Hydrocortisone (Cortef) 5 mg BEFORE DINNER ORAL 03/01/19 16:30 03/30/19 06:29 03/03/19 17:12 Hydrocortisone (Cortef) 10 mg DAILY ORAL 03/01/19 09:00 03/28/19 21:29 03/04/19 09:24 Insulin Aspart (NovoLOG) BEFORE MEALS AND HS SUBQ 02/26/19 06:30 03/28/19 06:29 03/03/19 20:48 Lidocaine (Xylocaine 1% MPF 5ml) 10 ml Q4H PRN HHN cough 03/01/19 12:45 03/31/19 12:44 Losartan Potassium (Cozaar) 50 mg DAILY ORAL 02/26/19 09:00 03/28/19 08:59 03/04/19 09:24 Metformin HCl (Glucophage) 1,000 mg BID ORAL 02/28/19 09:00 03/30/19 08:59 03/04/19 09:23 Methotrexate (metHOTREXate) 17.5 mg QWEEK ORAL 03/07/19 09:00 03/12/19 08:59 Ondansetron HCl (Zofran) 4 mg Q4HR PRN IVP Nausea & Vomiting 02/26/19 05:15 03/28/19 05:14 02/27/19 20:26 Pioglitazone HCl (Actos) 45 mg ACBREAKFAST ORAL 02/28/19 06:45 03/30/19 06:44 03/04/19 07:31 Promethazine HCl/ Codeine (Phenergan with Codeine) 5 ml Q4H PRN ORAL For Cough 02/28/19 17:25 03/30/19 17:24 03/04/19 09:23 Allergies: Coded Allergies: LATEX (Verified Allergy, Intermediate, 02/26/19) Subjective awake, alert, responsive, NAD, C/O less weakness. Objective Last Vital Signs Date Time Temp Pulse Resp B/P (MAP) Pulse Ox O2 Delivery O2 Flow Rate FiO2 03/04/19 15:06 Room Air 21 03/04/19 12:00 97.7 88 20 153/89 (110) 99 Intake and Output 03/03/19 03/04/19 19:00 07:00 Intake Total 1000 ml Balance 1000 ml Intake Oral 1000 ml # Voids 4 2 # Bowel Movements 1 Objective General: No acute distress, awake and alert HEENT: NCAT, sclera anicteric, PERRL, EOMI. Neck: Supple, no significant jugular venous distention, Lungs: Fair inspiratory effort, decrease air on bases no Wheeze or Rales. Heart: Regular rate and rhythm, normal S1/S2, no murmurs Abdomen: soft, nontender, nondistended. Normoactive bowel sounds. Extremities: No Cyanosis , clubbing or edema. Neuro: A&O x 3, Able to move all extremities slowly. Skin: warm, no rashes or lesions Psych: Normal mood and affect Assessment/Plan Assessment/Plan 1. Acute ESBL E.Coli UTI. 2. Hypopituitarism. 3. Rheumatoid arthritis. 4. Diabetes type 2. 5. Hypertension. 6. Hypercholesteremia. TREATMENT: 1. Urinary tract infection/urinary frequency/urgency-ESBL E. Coli Antibiotic: Ertapenem 2. Diabetes type 2. NovoLog sliding scale has been instituted. 3. Hypertension. Continue losartan as above. 4. Hypercholesterolemia. Continue Crestor as above. 5. Renal U/S=non obstructing renal calyceal calculi. no hydronephrosis 6. Full code 7. heparin SQ for DVT prophylaxes. DC planning home with She stated that her caregiver does not work over the weekend she would like to go home on Wednesday. Dale Villanueva MD Mar 04, 2019 16:25
--- NOTE | 2019-03-04 17:05 | Pulmonology Progress Note ---
Assessment/Plan Problems: (1) Refractory nausea and vomiting (2) Hypopituitarism (3) UTI (lower urinary tract infection) (4) Rheumatoid arthritis (5) DM (diabetes mellitus) Assessment/Plan less cough asymptomatic feeling better on Ertapenem symptomatic treatment check electrolytes antitussives sliding scale diabetic diet Subjective ROS Limited/Unobtainable: No Allergies: Coded Allergies: LATEX (Verified Allergy, Intermediate, 02/26/19) Objective Last 24 Hour Vital Signs Date Time Temp Pulse Resp B/P (MAP) Pulse Ox O2 Delivery O2 Flow Rate FiO2 03/04/19 16:00 99.2 89 19 158/96 (116) 98 03/04/19 15:06 Room Air 21 03/04/19 15:06 Room Air 21 03/04/19 12:00 97.7 88 20 153/89 (110) 99 03/04/19 10:41 Room Air 21 03/04/19 10:41 Room Air 21 03/04/19 09:24 149/80 03/04/19 09:00 Room Air 03/04/19 07:57 98.1 80 19 149/80 (103) 100 03/04/19 06:35 Room Air 21 03/04/19 06:35 Room Air 21 03/04/19 04:00 98.0 74 18 156/93 (114) 95 03/04/19 03:21 Room Air 21 03/04/19 03:21 Room Air 21 03/04/19 00:00 98.2 77 18 124/71 (88) 96 03/03/19 23:24 Room Air 21 03/03/19 23:24 Room Air 21 03/03/19 21:00 Room Air 03/03/19 20:00 98.7 80 18 131/74 (93) 98 03/03/19 19:26 Room Air 21 03/03/19 19:26 Room Air 21 Intake and Output 03/03/19 03/04/19 19:00 07:00 Intake Total 1000 ml Balance 1000 ml Intake Oral 1000 ml # Voids 4 2 # Bowel Movements 1 Objective General Appearance: WD/WN HEENT: normocephalic, atraumatic Respiratory/Chest: chest wall non-tender, lungs clear Breasts: no masses Cardiovascular: normal rate Abdomen: normal bowel sounds, soft, non tender Extremities: no cyanosis Skin: no rash Current Medications Medications (Trade) Dose Ordered Sig/Fortino Route PRN Reason Start Time Stop Time Status Last Admin Dose Admin Acetaminophen (Tylenol) 650 mg Q6H PRN ORAL Mild Pain/Temp > 100.5 02/26/19 05:15 03/28/19 05:14 03/03/19 20:34 Acetaminophen/ Hydrocodone Bitart ([place] 5/325) 1 tab Q6H PRN ORAL For Pain 02/26/19 05:15 03/05/19 05:14 Albuterol/ Ipratropium (Albuterol/ Ipratropium) 3 ml Q4HRT HHN 03/01/19 15:00 03/06/19 14:59 03/03/19 11:21 Atorvastatin Calcium (Lipitor) 40 mg BEDTIME ORAL 02/26/19 21:00 03/28/19 20:59 03/03/19 20:35 Clopidogrel Bisulfate (Plavix) 75 mg DAILY ORAL 02/26/19 09:00 03/28/19 08:59 03/04/19 09:24 Dextrose (Dextrose 50%) 25 ml Q30M PRN IV Hypoglycemia 02/26/19 05:45 03/28/19 05:44 Ertapenem 1 gm/ Sodium Chloride 55 ml @ 110 mls/hr Q24H IVPB 02/28/19 10:00 03/09/19 09:59 03/04/19 09:27 Fluoxetine HCl (PROzac) 40 mg DAILY ORAL 02/26/19 09:00 03/28/19 08:59 03/04/19 09:24 Folic Acid (Folate) 1 mg DAILY ORAL 02/26/19 09:00 03/28/19 08:59 03/04/19 09:24 Gabapentin (Neurontin) 300 mg BEDTIME ORAL 02/26/19 21:00 03/28/19 20:59 03/03/19 20:32 Heparin Sodium (Porcine) (Heparin 5000 units/ml) 5,000 units EVERY 12 HOURS SUBQ 02/26/19 09:00 03/28/19 08:59 03/01/19 20:26 Hydrocortisone (Cortef) 5 mg BEFORE DINNER ORAL 03/01/19 16:30 03/30/19 06:29 03/04/19 17:00 Hydrocortisone (Cortef) 10 mg DAILY ORAL 03/01/19 09:00 03/28/19 21:29 03/04/19 09:24 Insulin Aspart (NovoLOG) BEFORE MEALS AND HS SUBQ 02/26/19 06:30 03/28/19 06:29 03/04/19 16:58 Lidocaine (Xylocaine 1% MPF 5ml) 10 ml Q4H PRN HHN cough 03/01/19 12:45 03/31/19 12:44 Losartan Potassium (Cozaar) 50 mg DAILY ORAL 02/26/19 09:00 03/28/19 08:59 03/04/19 09:24 Metformin HCl (Glucophage) 1,000 mg BID ORAL 02/28/19 09:00 03/30/19 08:59 03/04/19 17:00 Methotrexate (metHOTREXate) 17.5 mg QWEEK ORAL 03/07/19 09:00 03/12/19 08:59 Ondansetron HCl (Zofran) 4 mg Q4HR PRN IVP Nausea & Vomiting 02/26/19 05:15 03/28/19 05:14 02/27/19 20:26 Pioglitazone HCl (Actos) 45 mg ACBREAKFAST ORAL 02/28/19 06:45 03/30/19 06:44 03/04/19 07:31 Promethazine HCl/ Codeine (Phenergan with Codeine) 5 ml Q4H PRN ORAL For Cough 02/28/19 17:25 03/30/19 17:24 03/04/19 16:58 Jesu Griffin MD Mar 04, 2019 17:05
--- NOTE | 2019-03-04 19:20 | NUR ---
HAND-OFF: Report given to YARELIS HUDSON.
--- NOTE | 2019-03-04 19:52 | NUR ---
NURSE NOTES: Pt received in bed at lowest position talking on the phone, able to make needs known, call light within reach, no c/o pain or signs of distress, will continue to monitor.
[2019-03-04 20:00] VITALS: BP 121/70
[2019-03-04] MEDS: Atorvastatin 80mg tab ORAL SCH (21:13)
[2019-03-05] VITALS: BP 110/68
[2019-03-05] MEDS: Albuterol/Ipratropium 3ml neb HHN SCH ×6 (03:00→23:00)
[2019-03-05 04:00] VITALS: BP 154/90
[2019-03-05] MEDS: NovoLOG Insulin Flexpen SUBQ SCH ×4 (06:27→21:24)
--- NOTE | 2019-03-05 07:20 | NUR ---
NURSE NOTES: Pt being cleaned by the nurse, has not eaten breakfast yet and does not want to take the Actos medication. I put it back in the Pyxis.
--- NOTE | 2019-03-05 07:24 | NUR ---
HAND-OFF: Report given to YARELIS Petty.
--- NOTE | 2019-03-05 07:25 | NUR ---
NURSE NOTES: WALKING ROUNDS DONE WITH OUTGOING RN. PATIENT UP TO BEDSIDE.BATHING WITH LENDING CONSULTANT. QUESTIONS ANSWERED NEEDS MET. DISCUSSED PLAN OF CARE FOR THE DAY.VERBALIZED UNDERSTANDING. CALL LIGHT WITHIN REACH.
--- NOTE | 2019-03-05 07:37 | NUR ---
NURSE NOTES: Pt given Actos medication.
[2019-03-05 08:00] VITALS: BP 117/77
[2019-03-05] MEDS: Losartan 50mg tab ORAL SCH (09:48)
[2019-03-05] MEDS: metFORMIN 500mg tab ORAL SCH ×2 (09:48→17:03)
[2019-03-05] MEDS: Ertapenem 1 GM in NS 55 ML IVPB SCH (09:50)
--- NOTE | 2019-03-05 10:59 | General Progress Note ---
Assessment/Plan Problem List: (1) DM (diabetes mellitus) ICD Codes: E11.9 - DM (diabetes mellitus) SNOMED: 61784320 (2) UTI (lower urinary tract infection) ICD Codes: N39.0 - UTI (lower urinary tract infection) SNOMED: 2890848 (3) Hypopituitarism ICD Codes: E23.0 - Hypopituitarism SNOMED: 78051971 (4) Rheumatoid arthritis ICD Codes: M06.9 - Rheumatoid arthritis, unspecified SNOMED: 27425826 Assessment/Plan continue Cortef 10 mg am and 5 mg pm - maintenance dose continue Metformin and Actos - hold Glipizide for now - continue NISS ac / hs Subjective Allergies: Coded Allergies: LATEX (Verified Allergy, Intermediate, 02/26/19) All Systems: reviewed and negative except above Subjective events noted Item Value Date Time Bedside Blood Glucose 92 mg/dl 03/05/19 0627 Bedside Blood Glucose 162 mg/dl H 03/04/19 2125 Bedside Blood Glucose 173 mg/dl H 03/04/19 1658 Bedside Blood Glucose 136 mg/dl H 03/04/19 1130 Objective Last 24 Hour Vital Signs Date Time Temp Pulse Resp B/P (MAP) Pulse Ox O2 Delivery O2 Flow Rate FiO2 03/05/19 10:50 Room Air 03/05/19 10:50 Room Air 03/05/19 09:48 117/77 03/05/19 09:00 Room Air 03/05/19 08:00 98.3 100 20 117/77 (90) 97 03/05/19 06:49 Room Air 03/05/19 06:49 Room Air 03/05/19 04:00 98.4 89 20 154/90 (111) 99 03/05/19 03:01 Room Air 21 03/05/19 03:01 Room Air 03/05/19 00:00 98.4 88 18 110/68 (82) 98 03/04/19 23:00 Room Air 03/04/19 23:00 Room Air 21 03/04/19 21:00 Room Air 03/04/19 20:00 99.1 95 18 121/70 (87) 96 03/04/19 19:48 Room Air 03/04/19 19:48 Room Air 03/04/19 16:00 99.2 89 19 158/96 (116) 98 03/04/19 15:06 Room Air 21 03/04/19 15:06 Room Air 21 03/04/19 12:00 97.7 88 20 153/89 (110) 99 Intake and Output 03/04/19 03/05/19 18:59 06:59 Intake Total 915 ml 700 ml Balance 915 ml 700 ml Intake Oral 700 ml IV Total 55 ml Other 860 ml Height (Feet): 5 Height (Inches): 4.00 Weight (Pounds): 172 General Appearance: no apparent distress Neck: normal alignment Cardiovascular: normal rate Respiratory/Chest: chest wall non-tender Edema: no edema noted Arm (L), no edema noted Arm (R), no edema noted Leg (L), no edema noted Leg (R), no edema noted Pedal (L), no edema noted Pedal (R), no edema noted Generalized Objective Current Medications Medications (Trade) Dose Ordered Sig/Fortino Route PRN Reason Start Time Stop Time Status Last Admin Dose Admin Acetaminophen (Tylenol) 650 mg Q6H PRN ORAL Mild Pain/Temp > 100.5 02/26/19 05:15 03/28/19 05:14 03/04/19 21:19 Albuterol/ Ipratropium (Albuterol/ Ipratropium) 3 ml Q4HRT HHN 03/01/19 15:00 03/06/19 14:59 03/03/19 11:21 Atorvastatin Calcium (Lipitor) 40 mg BEDTIME ORAL 02/26/19 21:00 03/28/19 20:59 03/04/19 21:13 Clopidogrel Bisulfate (Plavix) 75 mg DAILY ORAL 02/26/19 09:00 03/28/19 08:59 03/05/19 09:48 Dextrose (Dextrose 50%) 25 ml Q30M PRN IV Hypoglycemia 02/26/19 05:45 03/28/19 05:44 Ertapenem 1 gm/ Sodium Chloride 55 ml @ 110 mls/hr Q24H IVPB 02/28/19 10:00 03/09/19 09:59 03/05/19 09:50 Fluoxetine HCl (PROzac) 40 mg DAILY ORAL 02/26/19 09:00 03/28/19 08:59 03/05/19 09:47 Folic Acid (Folate) 1 mg DAILY ORAL 02/26/19 09:00 03/28/19 08:59 03/05/19 09:48 Gabapentin (Neurontin) 300 mg BEDTIME ORAL 02/26/19 21:00 03/28/19 20:59 03/04/19 21:13 Heparin Sodium (Porcine) (Heparin 5000 units/ml) 5,000 units EVERY 12 HOURS SUBQ 02/26/19 09:00 03/28/19 08:59 03/01/19 20:26 Hydrocortisone (Cortef) 5 mg BEFORE DINNER ORAL 03/01/19 16:30 03/30/19 06:29 03/04/19 17:00 Hydrocortisone (Cortef) 10 mg DAILY ORAL 03/01/19 09:00 03/28/19 21:29 03/05/19 09:48 Insulin Aspart (NovoLOG) BEFORE MEALS AND HS SUBQ 02/26/19 06:30 03/28/19 06:29 03/04/19 21:25 Lidocaine (Xylocaine 1% MPF 5ml) 10 ml Q4H PRN HHN cough 03/01/19 12:45 03/31/19 12:44 Losartan Potassium (Cozaar) 50 mg DAILY ORAL 02/26/19 09:00 03/28/19 08:59 03/05/19 09:48 Metformin HCl (Glucophage) 1,000 mg BID ORAL 02/28/19 09:00 03/30/19 08:59 03/05/19 09:48 Methotrexate (metHOTREXate) 17.5 mg QWEEK ORAL 03/07/19 09:00 03/12/19 08:59 Ondansetron HCl (Zofran) 4 mg Q4HR PRN IVP Nausea & Vomiting 02/26/19 05:15 03/28/19 05:14 02/27/19 20:26 Pioglitazone HCl (Actos) 45 mg ACBREAKFAST ORAL 02/28/19 06:45 03/30/19 06:44 03/05/19 07:37 Promethazine HCl/ Codeine (Phenergan with Codeine) 5 ml Q4H PRN ORAL For Cough 02/28/19 17:25 03/30/19 17:24 03/04/19 21:18 Seth Velazquez MD Mar 05, 2019 10:59
[2019-03-05] MEDS: Heparin 5000 units/ml inj SUBQ SCH ×2 (11:06→21:00)
--- NOTE | 2019-03-05 11:06 | NUR ---
RD ASSESSMENT & RECOMMENDATIONS SEE CARE ACTIVITY FOR COMPLETE ASSESSMENT DAILY ESTIMATED NEEDS: Needs based on DM, cardiac 60kg adj 25-30 kcals/kg 0230-5972 total kcals 1-1.5 g protein/kg 60-90 g total protein 25-30 mL/kg 1260-5760 total fluid mLs NUTRITION DIAGNOSIS: Altered nutrition related lab values r/t diabetes as evidenced by elev BG (149-154), w/ elev POC, on oral and IM hypoglycemics. CURRENT DIET: [facility] PO DIET [facility]OMM[facility] ADDITIONAL RECOMMENDATIONS: 1) Obtain a standing weight as able -> Pt reports significant wt loss 2) DM diet edu provided 3) check A1C
[2019-03-05 12:00] VITALS: BP 137/76
[2019-03-05 16:00] VITALS: BP 121/73
--- NOTE | 2019-03-05 18:10 | NUR ---
NURSE NOTES: PATIENT REMAINS STABLE. UP TO CHAIR A FEW TIMES TO TODAY. DENIES PAIN OR DIFFICULTY URINATING.
--- NOTE | 2019-03-05 19:22 | NUR ---
NURSE NOTES: Pt received awake, alert in bed at lowest position, able to make needs known, call light within reach, no signs of pain or distress at the moment. will continue to monitor
--- NOTE | 2019-03-05 19:35 | NUR ---
HAND-OFF: Report given to SIS Hernandez RN. Addendum: 03/05/19 at 1938 by KIKI CHIRINOS RN HAND-OFF: Report given to Walter OGDEN RN.
[2019-03-05 20:00] VITALS: BP 141/62
[2019-03-05] MEDS: Atorvastatin 80mg tab ORAL SCH (21:19)
--- NOTE | 2019-03-05 21:28 | NUR ---
NURSE NOTES: Pt refused heparin, cap was already taken off, will waste. YARELIS Jeter witnessed waste
[2019-03-05] MEDS: Promethazine/Codeine 5ml UD ORAL PRN (21:54)
--- NOTE | 2019-03-05 22:01 | Internal Med Progress Note ---
Subjective Physician Name Dale Villanueva Attending Physician Dale Villanueva MD Current Medications Medications (Trade) Dose Ordered Sig/Fortino Route PRN Reason Start Time Stop Time Status Last Admin Dose Admin Acetaminophen (Tylenol) 650 mg Q6H PRN ORAL Mild Pain/Temp > 100.5 02/26/19 05:15 03/28/19 05:14 03/05/19 21:21 Albuterol/ Ipratropium (Albuterol/ Ipratropium) 3 ml Q4HRT HHN 03/01/19 15:00 03/06/19 14:59 03/03/19 11:21 Atorvastatin Calcium (Lipitor) 40 mg BEDTIME ORAL 02/26/19 21:00 03/28/19 20:59 03/05/19 21:19 Clopidogrel Bisulfate (Plavix) 75 mg DAILY ORAL 02/26/19 09:00 03/28/19 08:59 03/05/19 09:48 Dextrose (Dextrose 50%) 25 ml Q30M PRN IV Hypoglycemia 02/26/19 05:45 03/28/19 05:44 Ertapenem 1 gm/ Sodium Chloride 55 ml @ 110 mls/hr Q24H IVPB 02/28/19 10:00 03/09/19 09:59 03/05/19 09:50 Fluoxetine HCl (PROzac) 40 mg DAILY ORAL 02/26/19 09:00 03/28/19 08:59 03/05/19 09:47 Folic Acid (Folate) 1 mg DAILY ORAL 02/26/19 09:00 03/28/19 08:59 03/05/19 09:48 Gabapentin (Neurontin) 300 mg BEDTIME ORAL 02/26/19 21:00 03/28/19 20:59 03/05/19 21:20 Heparin Sodium (Porcine) (Heparin 5000 units/ml) 5,000 units EVERY 12 HOURS SUBQ 02/26/19 09:00 03/28/19 08:59 03/05/19 11:06 Hydrocortisone (Cortef) 5 mg BEFORE DINNER ORAL 03/01/19 16:30 03/30/19 06:29 03/05/19 17:03 Hydrocortisone (Cortef) 10 mg DAILY ORAL 03/01/19 09:00 03/28/19 21:29 03/05/19 09:48 Insulin Aspart (NovoLOG) BEFORE MEALS AND HS SUBQ 02/26/19 06:30 03/28/19 06:29 03/05/19 21:24 Lidocaine (Xylocaine 1% MPF 5ml) 10 ml Q4H PRN HHN cough 03/01/19 12:45 03/31/19 12:44 Losartan Potassium (Cozaar) 50 mg DAILY ORAL 02/26/19 09:00 03/28/19 08:59 03/05/19 09:48 Metformin HCl (Glucophage) 1,000 mg BID ORAL 02/28/19 09:00 03/30/19 08:59 03/05/19 17:03 Methotrexate (metHOTREXate) 17.5 mg QWEEK ORAL 03/07/19 09:00 03/12/19 08:59 Ondansetron HCl (Zofran) 4 mg Q4HR PRN IVP Nausea & Vomiting 02/26/19 05:15 03/28/19 05:14 02/27/19 20:26 Pioglitazone HCl (Actos) 45 mg ACBREAKFAST ORAL 02/28/19 06:45 03/30/19 06:44 03/05/19 07:37 Promethazine HCl/ Codeine (Phenergan with Codeine) 5 ml Q4H PRN ORAL For Cough 02/28/19 17:25 03/30/19 17:24 03/04/19 21:18 Allergies: Coded Allergies: LATEX (Verified Allergy, Intermediate, 02/26/19) Subjective awake, alert, responsive, NAD, Feeling "good". Objective Last Vital Signs Date Time Temp Pulse Resp B/P (MAP) Pulse Ox O2 Delivery O2 Flow Rate FiO2 03/05/19 19:26 Room Air 21 03/05/19 16:00 97.6 92 18 121/73 (89) 96 Intake and Output 03/04/19 03/05/19 19:00 07:00 Intake Total 915 ml 700 ml Balance 915 ml 700 ml Intake Oral 700 ml IV Total 55 ml Other 860 ml Objective General: No acute distress, awake and alert HEENT: NCAT, sclera anicteric, PERRL, EOMI. Neck: Supple, no significant jugular venous distention, Lungs: Fair inspiratory effort, decrease air on bases no Wheeze or Rales. Heart: Regular rate and rhythm, normal S1/S2, no murmurs Abdomen: soft, nontender, nondistended. Normoactive bowel sounds. Extremities: No Cyanosis , clubbing or edema. Neuro: A&O x 3, Able to move all extremities slowly. Skin: warm, no rashes or lesions Psych: Normal mood and affect Assessment/Plan Assessment/Plan 1. Acute ESBL E.Coli UTI. 2. Hypopituitarism. 3. Rheumatoid arthritis. 4. Diabetes type 2. 5. Hypertension. 6. Hypercholesteremia. TREATMENT: 1. Urinary tract infection/urinary frequency/urgency-ESBL E. Coli Antibiotic: Ertapenem 2. Diabetes type 2. NovoLog sliding scale has been instituted. 3. Hypertension. Continue losartan as above. 4. Hypercholesterolemia. Continue Crestor as above. 5. Renal U/S=non obstructing renal calyceal calculi. no hydronephrosis 6. Full code 7. heparin SQ for DVT prophylaxes. NH planning home with in Dale Villanueva MD Mar 05, 2019 22:01
[2019-03-06] VITALS: BP 114/62
[2019-03-06] MEDS: Albuterol/Ipratropium 3ml neb HHN SCH ×2 (03:00→07:26)
[2019-03-06 04:00] VITALS: BP 135/77
[2019-03-06] MEDS: NovoLOG Insulin Flexpen SUBQ SCH (06:30)
--- NOTE | 2019-03-06 06:40 | General Progress Note ---
Assessment/Plan Problem List: (1) DM (diabetes mellitus) ICD Codes: E11.9 - DM (diabetes mellitus) SNOMED: 14856400 (2) UTI (lower urinary tract infection) ICD Codes: N39.0 - UTI (lower urinary tract infection) SNOMED: 6488505 (3) Hypopituitarism ICD Codes: E23.0 - Hypopituitarism SNOMED: 02821957 (4) Rheumatoid arthritis ICD Codes: M06.9 - Rheumatoid arthritis, unspecified SNOMED: 56605875 Assessment/Plan continue Cortef 10 mg am and 5 mg pm - maintenance dose continue Metformin and Actos no need for Glipizide for now continue NISS ac / hs Subjective Allergies: Coded Allergies: LATEX (Verified Allergy, Intermediate, 02/26/19) All Systems: reviewed and negative except above Subjective events noted Item Value Date Time Bedside Blood Glucose 136 mg/dl H 03/05/19 2124 Bedside Blood Glucose 109 mg/dl 03/05/19 1630 Bedside Blood Glucose 119 mg/dl 03/05/19 1210 Bedside Blood Glucose 92 mg/dl 03/05/19 0627 Objective Last 24 Hour Vital Signs Date Time Temp Pulse Resp B/P (MAP) Pulse Ox O2 Delivery O2 Flow Rate FiO2 03/06/19 04:00 98.5 66 17 135/77 (96) 95 03/06/19 03:15 Room Air 21 03/06/19 03:14 Room Air 03/06/19 00:00 98.0 67 15 114/62 (79) 98 03/05/19 23:14 Room Air 21 03/05/19 23:14 Room Air 03/05/19 21:00 Room Air 03/05/19 20:00 97.7 16 141/62 (88) 93 03/05/19 19:26 Room Air 21 03/05/19 19:25 Room Air 21 03/05/19 16:00 97.6 92 18 121/73 (89) 96 03/05/19 14:50 Room Air 21 03/05/19 14:50 Room Air 21 03/05/19 12:00 98.2 77 20 137/76 (96) 97 03/05/19 10:50 Room Air 21 03/05/19 10:50 Room Air 21 03/05/19 09:48 117/77 03/05/19 09:00 Room Air 03/05/19 08:00 98.3 100 20 117/77 (90) 97 03/05/19 06:49 Room Air 21 03/05/19 06:49 Room Air 21 Intake and Output 03/05/19 03/06/19 19:00 07:00 Intake Total 355 ml Balance 355 ml Intake Oral 300 ml IV Total 55 ml # Voids 2 Height (Feet): 5 Height (Inches): 4.00 Weight (Pounds): 172 General Appearance: no apparent distress Neck: normal alignment Cardiovascular: normal rate Respiratory/Chest: lungs clear Abdomen: normal bowel sounds Pelvis: normal external exam Edema: no edema noted Arm (L), no edema noted Arm (R), no edema noted Leg (L), no edema noted Leg (R), no edema noted Pedal (L), no edema noted Pedal (R), no edema noted Generalized Objective Current Medications Medications (Trade) Dose Ordered Sig/Fortino Route PRN Reason Start Time Stop Time Status Last Admin Dose Admin Acetaminophen (Tylenol) 650 mg Q6H PRN ORAL Mild Pain/Temp > 100.5 02/26/19 05:15 03/28/19 05:14 03/05/19 21:21 Albuterol/ Ipratropium (Albuterol/ Ipratropium) 3 ml Q4HRT HHN 03/01/19 15:00 03/06/19 14:59 03/03/19 11:21 Atorvastatin Calcium (Lipitor) 40 mg BEDTIME ORAL 02/26/19 21:00 03/28/19 20:59 03/05/19 21:19 Clopidogrel Bisulfate (Plavix) 75 mg DAILY ORAL 02/26/19 09:00 03/28/19 08:59 03/05/19 09:48 Dextrose (Dextrose 50%) 25 ml Q30M PRN IV Hypoglycemia 02/26/19 05:45 03/28/19 05:44 Ertapenem 1 gm/ Sodium Chloride 55 ml @ 110 mls/hr Q24H IVPB 02/28/19 10:00 03/09/19 09:59 03/05/19 09:50 Fluoxetine HCl (PROzac) 40 mg DAILY ORAL 02/26/19 09:00 03/28/19 08:59 03/05/19 09:47 Folic Acid (Folate) 1 mg DAILY ORAL 02/26/19 09:00 03/28/19 08:59 03/05/19 09:48 Gabapentin (Neurontin) 300 mg BEDTIME ORAL 02/26/19 21:00 03/28/19 20:59 03/05/19 21:20 Heparin Sodium (Porcine) (Heparin 5000 units/ml) 5,000 units EVERY 12 HOURS SUBQ 02/26/19 09:00 03/28/19 08:59 03/05/19 11:06 Hydrocortisone (Cortef) 5 mg BEFORE DINNER ORAL 03/01/19 16:30 03/30/19 06:29 03/05/19 17:03 Hydrocortisone (Cortef) 10 mg DAILY ORAL 03/01/19 09:00 03/28/19 21:29 03/05/19 09:48 Insulin Aspart (NovoLOG) BEFORE MEALS AND HS SUBQ 02/26/19 06:30 03/28/19 06:29 03/05/19 21:24 Lidocaine (Xylocaine 1% MPF 5ml) 10 ml Q4H PRN HHN cough 03/01/19 12:45 03/31/19 12:44 Losartan Potassium (Cozaar) 50 mg DAILY ORAL 02/26/19 09:00 03/28/19 08:59 03/05/19 09:48 Metformin HCl (Glucophage) 1,000 mg BID ORAL 02/28/19 09:00 03/30/19 08:59 03/05/19 17:03 Methotrexate (metHOTREXate) 17.5 mg QWEEK ORAL 03/07/19 09:00 03/12/19 08:59 Ondansetron HCl (Zofran) 4 mg Q4HR PRN IVP Nausea & Vomiting 02/26/19 05:15 03/28/19 05:14 02/27/19 20:26 Pioglitazone HCl (Actos) 45 mg ACBREAKFAST ORAL 02/28/19 06:45 03/30/19 06:44 03/05/19 07:37 Promethazine HCl/ Codeine (Phenergan with Codeine) 5 ml Q4H PRN ORAL For Cough 02/28/19 17:25 03/30/19 17:24 03/05/19 21:54 Seth Velazquez MD Mar 06, 2019 06:40
--- NOTE | 2019-03-06 07:35 | NUR ---
HAND-OFF: Report given to YARELIS Rodriguez.
[2019-03-06 08:00] VITALS: BP 132/67
[2019-03-06] MEDS: metFORMIN 500mg tab ORAL SCH (08:20)
[2019-03-06 08:21] VITALS: BP 132/67
[2019-03-06] MEDS: Losartan 50mg tab ORAL SCH (08:21)
[2019-03-06] MEDS: Heparin 5000 units/ml inj SUBQ SCH ×2 (08:23→08:28)
--- NOTE | 2019-03-06 09:15 | Diagnostic Imaging Report ---
Clinical Indication: Cough Technique: Spiral acquisitions obtained through the chest. No IV contrast utilized, per patient request. Multiplanar reconstructions generated. Total dose length product 869.25 mGycm. CTDIvol(s) 25.12 mGy. Dose reduction achieved using automated exposure control Comparison: none Findings: Lungs demonstrate posterior dependent atelectatic changes at the bases. Lungs are otherwise clear. No infiltrates, effusions, masses, or nodules are demonstrated. The heart size is normal. No pericardial effusion. No mediastinal or hilar mass or adenopathy. The included portion of the thyroid is unremarkable. No axillary or chest wall mass or adenopathy. The included upper abdominal anatomy demonstrates cholecystectomy clips. There is colonic diverticulosis. The bones demonstrate degenerative lower thoracic spondylosis. Impression: No acute pulmonary process or other significant abnormality Colonic diverticulosis Evidence of prior cholecystectomy The CT scanner at [facility] is accredited by the [employer] and the scans are performed using protocols designed to limit radiation exposure to as low as reasonably achievable to attain images of sufficient resolution adequate for diagnostic evaluation.
--- NOTE | 2019-03-06 09:18 | Internal Med Progress Note ---
Subjective Physician Name Dale Villanueva Attending Physician Dale Villanueva MD Current Medications Medications (Trade) Dose Ordered Sig/Fortino Route PRN Reason Start Time Stop Time Status Last Admin Dose Admin Acetaminophen (Tylenol) 650 mg Q6H PRN ORAL Mild Pain/Temp > 100.5 02/26/19 05:15 03/28/19 05:14 03/05/19 21:21 Albuterol/ Ipratropium (Albuterol/ Ipratropium) 3 ml Q4HRT HHN 03/01/19 15:00 03/06/19 14:59 03/03/19 11:21 Atorvastatin Calcium (Lipitor) 40 mg BEDTIME ORAL 02/26/19 21:00 03/28/19 20:59 03/05/19 21:19 Clopidogrel Bisulfate (Plavix) 75 mg DAILY ORAL 02/26/19 09:00 03/28/19 08:59 03/06/19 08:21 Dextrose (Dextrose 50%) 25 ml Q30M PRN IV Hypoglycemia 02/26/19 05:45 03/28/19 05:44 Ertapenem 1 gm/ Sodium Chloride 55 ml @ 110 mls/hr Q24H IVPB 02/28/19 10:00 03/09/19 09:59 03/05/19 09:50 Fluoxetine HCl (PROzac) 40 mg DAILY ORAL 02/26/19 09:00 03/28/19 08:59 03/06/19 08:21 Folic Acid (Folate) 1 mg DAILY ORAL 02/26/19 09:00 03/28/19 08:59 03/06/19 08:21 Gabapentin (Neurontin) 300 mg BEDTIME ORAL 02/26/19 21:00 03/28/19 20:59 03/05/19 21:20 Heparin Sodium (Porcine) (Heparin 5000 units/ml) 5,000 units EVERY 12 HOURS SUBQ 02/26/19 09:00 03/28/19 08:59 03/05/19 11:06 Hydrocortisone (Cortef) 5 mg BEFORE DINNER ORAL 03/01/19 16:30 03/30/19 06:29 03/05/19 17:03 Hydrocortisone (Cortef) 10 mg DAILY ORAL 03/01/19 09:00 03/28/19 21:29 03/06/19 08:20 Insulin Aspart (NovoLOG) BEFORE MEALS AND HS SUBQ 02/26/19 06:30 03/28/19 06:29 03/05/19 21:24 Lidocaine (Xylocaine 1% MPF 5ml) 10 ml Q4H PRN HHN cough 03/01/19 12:45 03/31/19 12:44 Losartan Potassium (Cozaar) 50 mg DAILY ORAL 02/26/19 09:00 03/28/19 08:59 03/06/19 08:21 Metformin HCl (Glucophage) 1,000 mg BID ORAL 02/28/19 09:00 03/30/19 08:59 03/06/19 08:20 Methotrexate (metHOTREXate) 17.5 mg QWEEK ORAL 03/07/19 09:00 03/12/19 08:59 Ondansetron HCl (Zofran) 4 mg Q4HR PRN IVP Nausea & Vomiting 02/26/19 05:15 03/28/19 05:14 02/27/19 20:26 Pioglitazone HCl (Actos) 45 mg ACBREAKFAST ORAL 02/28/19 06:45 03/30/19 06:44 03/06/19 06:57 Promethazine HCl/ Codeine (Phenergan with Codeine) 5 ml Q4H PRN ORAL For Cough 02/28/19 17:25 03/30/19 17:24 03/05/19 21:54 Allergies: Coded Allergies: LATEX (Verified Allergy, Intermediate, 02/26/19) Subjective awake, alert, responsive, NAD, Feeling "good". Objective Last Vital Signs Date Time Temp Pulse Resp B/P (MAP) Pulse Ox O2 Delivery O2 Flow Rate FiO2 03/06/19 08:21 132/67 03/06/19 08:00 97.7 67 17 98 03/06/19 07:27 Room Air 21 Intake and Output 03/05/19 03/06/19 19:00 07:00 Intake Total 355 ml Balance 355 ml Intake Oral 300 ml IV Total 55 ml # Voids 2 Objective General: No acute distress, awake and alert HEENT: NCAT, sclera anicteric, PERRL, EOMI. Neck: Supple, no significant jugular venous distention, Lungs: Fair inspiratory effort, decrease air on bases no Wheeze or Rales. Heart: Regular rate and rhythm, normal S1/S2, no murmurs Abdomen: soft, nontender, nondistended. Normoactive bowel sounds. Extremities: No Cyanosis , clubbing or edema. Neuro: A&O x 3, Able to move all extremities slowly. Skin: warm, no rashes or lesions Psych: Normal mood and affect Assessment/Plan Assessment/Plan 1. Acute ESBL E.Coli UTI. 2. Hypopituitarism. 3. Rheumatoid arthritis. 4. Diabetes type 2. 5. Hypertension. 6. Hypercholesteremia. TREATMENT: 1. Urinary tract infection/urinary frequency/urgency-ESBL E. Coli Antibiotic: Ertapenem (Last dose today) 2. Diabetes type 2. NovoLog sliding scale has been instituted. 3. Hypertension. Continue losartan as above. 4. Hypercholesterolemia. Continue Crestor as above. 5. Renal U/S=non obstructing renal calyceal calculi. no hydronephrosis 6. Full code 7. heparin SQ for DVT prophylaxes. DC planning home with today Dale Villanueva MD Mar 06, 2019 09:18
[2019-03-06] MEDS: Ertapenem 1 GM in NS 55 ML IVPB SCH (09:19)
--- NOTE | 2019-03-06 10:02 | NUR ---
NURSE NOTES: pt in bed with no sob nor in any form of distress noted. awaiting to be discharged home with hh today. caregiver at bedside. will continue to monitor
[2019-03-06] MEDS ORDERED: INVANZ1 G1 IM (10:07)
[2019-03-06] MEDS ORDERED: INVANZ1 G1 IV (10:07)
--- NOTE | 2019-03-06 10:09 | Infectious Diseases Prog Note ---
Assessment/Plan Assessment/Plan 68 yo female with pmhx of HTN and DM who transferred from [place] on 02/25/19 with urinary frequency. Pyelonephritis - Recurrent UTI Treated multiple time in the past year Fever at home, N/V left CVA tenderness Urine Cx 02/25/19 - GNR No Fever No leukocytosis DM PLAN - Continue Ertapenem 1g Qday #7/ ( End date 03/06/19) - OK to D/C from an ID perspective - 02/28/19 SP ceftriaxone #3 - Monitor CBC and Temps - Will need to f/u with her Urologist and ID MD for recurrent UTI We will continue to follow the patient during this hospitalization. Subjective Allergies: Coded Allergies: LATEX (Verified Allergy, Intermediate, 02/26/19) Subjective Afebrile Satting well Objective Vital Signs Last 24 Hour Vital Signs Date Time Temp Pulse Resp B/P (MAP) Pulse Ox O2 Delivery O2 Flow Rate FiO2 03/06/19 09:50 Room Air 03/06/19 08:21 132/67 03/06/19 08:00 97.7 67 17 132/67 (88) 98 03/06/19 07:27 Room Air 21 03/06/19 07:26 Room Air 21 03/06/19 04:00 98.5 66 17 135/77 (96) 95 03/06/19 03:15 Room Air 21 03/06/19 03:14 Room Air 21 03/06/19 00:00 98.0 67 15 114/62 (79) 98 03/05/19 23:14 Room Air 21 03/05/19 23:14 Room Air 21 03/05/19 21:00 Room Air 03/05/19 20:00 97.7 16 141/62 (88) 93 03/05/19 19:26 Room Air 21 03/05/19 19:25 Room Air 21 03/05/19 16:00 97.6 92 18 121/73 (89) 96 03/05/19 14:50 Room Air 21 03/05/19 14:50 Room Air 21 03/05/19 12:00 98.2 77 20 137/76 (96) 97 03/05/19 10:50 Room Air 21 03/05/19 10:50 Room Air 21 Height (Feet): 5 Height (Inches): 4.00 Weight (Pounds): 172 Objective Gen: NAD, sitting in bed HEENT: NCAT, MMM, EOMI LUNGS: CTAB, No Wheezing CARDS: RRR, S1, S2, No M/R/G, ABD: Soft, NT, ND, + BS Current Medications Medications (Trade) Dose Ordered Sig/Fortino Route PRN Reason Start Time Stop Time Status Last Admin Dose Admin Acetaminophen (Tylenol) 650 mg Q6H PRN ORAL Mild Pain/Temp > 100.5 02/26/19 05:15 03/28/19 05:14 03/05/19 21:21 Albuterol/ Ipratropium (Albuterol/ Ipratropium) 3 ml Q4HRT HHN 03/01/19 15:00 03/06/19 14:59 03/03/19 11:21 Atorvastatin Calcium (Lipitor) 40 mg BEDTIME ORAL 02/26/19 21:00 03/28/19 20:59 03/05/19 21:19 Clopidogrel Bisulfate (Plavix) 75 mg DAILY ORAL 02/26/19 09:00 03/28/19 08:59 03/06/19 08:21 Dextrose (Dextrose 50%) 25 ml Q30M PRN IV Hypoglycemia 02/26/19 05:45 03/28/19 05:44 Ertapenem 1 gm/ Sodium Chloride 55 ml @ 110 mls/hr Q24H IVPB 02/28/19 10:00 03/09/19 09:59 03/06/19 09:19 Fluoxetine HCl (PROzac) 40 mg DAILY ORAL 02/26/19 09:00 03/28/19 08:59 03/06/19 08:21 Folic Acid (Folate) 1 mg DAILY ORAL 02/26/19 09:00 03/28/19 08:59 03/06/19 08:21 Gabapentin (Neurontin) 300 mg BEDTIME ORAL 02/26/19 21:00 03/28/19 20:59 03/05/19 21:20 Heparin Sodium (Porcine) (Heparin 5000 units/ml) 5,000 units EVERY 12 HOURS SUBQ 02/26/19 09:00 03/28/19 08:59 03/05/19 11:06 Hydrocortisone (Cortef) 5 mg BEFORE DINNER ORAL 03/01/19 16:30 03/30/19 06:29 03/05/19 17:03 Hydrocortisone (Cortef) 10 mg DAILY ORAL 03/01/19 09:00 03/28/19 21:29 03/06/19 08:20 Insulin Aspart (NovoLOG) BEFORE MEALS AND HS SUBQ 02/26/19 06:30 03/28/19 06:29 03/05/19 21:24 Lidocaine (Xylocaine 1% MPF 5ml) 10 ml Q4H PRN HHN cough 03/01/19 12:45 03/31/19 12:44 Losartan Potassium (Cozaar) 50 mg DAILY ORAL 02/26/19 09:00 03/28/19 08:59 03/06/19 08:21 Metformin HCl (Glucophage) 1,000 mg BID ORAL 02/28/19 09:00 03/30/19 08:59 03/06/19 08:20 Methotrexate (metHOTREXate) 17.5 mg QWEEK ORAL 03/07/19 09:00 03/12/19 08:59 Ondansetron HCl (Zofran) 4 mg Q4HR PRN IVP Nausea & Vomiting 02/26/19 05:15 03/28/19 05:14 02/27/19 20:26 Pioglitazone HCl (Actos) 45 mg ACBREAKFAST ORAL 02/28/19 06:45 03/30/19 06:44 03/06/19 06:57 Promethazine HCl/ Codeine (Phenergan with Codeine) 5 ml Q4H PRN ORAL For Cough 02/28/19 17:25 03/30/19 17:24 03/05/19 21:54 Jamshid Chan MD Mar 06, 2019 10:09
--- NOTE | 2019-03-06 11:10 | NUR ---
NURSE NOTES: pt discharged home with [facility] picked up by caregiver with stable condition. pt received invanz iv #3 out of 5 dose today and will be continue 2 more dose starting from tomorrow. Called [facility] and pharmacy to verify if the medication will be deliver to pt's house. Per [facility], they were unable to reach pharmacy but they will try contacting them later and pt is aware of IV ATB delivery to pt's house and she will be waiting at home. police manager is aware. Provided contact information of [facility] to follow up with medication. All discharge instruction given to pt and verbalized understanding. Iv heplock removed and covered with gauze and taped. denies any pain.
--- NOTE | 2019-03-08 10:37 | Discharge Summary ---
Discharge Summary Discharge Summary _ DATE OF ADMISSION: 02/25/2019 DATE OF DISCHARGE: 03/06/2019 DISCHARGED BY: Dr. Villanueva REASON FOR ADMISSION: 68 years old female with past medical history of diabetes mellitus type 2, hypertension, hypopituitarism, rheumatoid arthritis, presented with chief complaint of increased urinary frequency and urgency. Patient reported several urinary tract infection over the last 2 years. Patient was treated with different antibiotic in the past. History of present illness began on February 24, when patient started to experience increased frequency of urination and urgency. Patient had episodes of urinary incontinence. Patient initially presented to [facility] and was found to have urinary tract infection. Patient received oral antibiotics and subsequently was transferred to [facility] for insurance purposes. CONSULTANTS: pulmonary Dr. Griffin ID specialist Dr. Driscoll communications lead Dr. Velazquez [facility] COURSE: Patient admitted to medical surgical floor. Patient started on empiric antibiotic ID specialist closely followed. Blood cultures were negative. Urine culture revealed E. coli ESBL. Antibiotic regimen was optimized as per infectious disease recommendation, based on sensitivity. Patient had no fever, no leukocytosis. Patient completed IV antibiotics while in the hospital. Renal ultrasound revealed no hydronephrosis, possible nonobstructing renal calyceal calculi. Patient was recommended to follow-up with a urologist as outpatient for recurrent UTI. Renal parameters and electrolytes were closely monitored. Electrolytes/potassium, magnesium corrected as needed. CRP trended down from initial 11.5 down to 2.9. [employer] Helper followed. Patient was on maintenance dose of steroids Cortef 10 mg in the morning and 5 mg at night . Methotrexate continued. Blood sugar was managed with metformin and Actos. No need for glipizide at this time. Sliding scale of insulin was on board as needed. Hemoglobin A1c 7.1, at goal. En[employer]ader followed. Chest x-ray revealed no acute cardiopulmonary pathology. Supplemental oxygen provided as needed to keep pulse oximetry above 92%. Follow-up chest x-ray revealed no acute process. Patient reported cough. Antitussive provided as needed. CT of the chest revealed no acute pulmonary process or other significant abnormality. The bones demonstrated degenerative lower thoracic spondylosis. Evidence of prior cholecystectomy. Colonic diverticulosis. Blood pressure was managed with the losartan and remained stable. Statin was continued. DVT prophylaxis provided. Venous duplex bilateral lower symmetrical no evidence of acute DVT. Patient clinically stabilized and was ready for discharge home with home health services. FINAL DIAGNOSES: Acute E. coli ESBL urinary tract infection/pyelonephritis History of recent recurrent UTI Diabetes mellitus type 2 Hypertension Hypercholesterolemia Rheumatoid arthritis Hypopituitarism DISCHARGE MEDICATIONS: See Medication Reconciliation list. DISCHARGE INSTRUCTIONS: Patient was discharged home with home health services. Follow up with primary care provider in one week. I have been assigned to dictate discharge summary for this account. I was not involved in the patient's management. Concha Diez NP Mar 08, 2019 10:37
--- NOTE | 2019-03-08 23:32 | Diagnostic Imaging Report ---
APPROVED REPORT CPT Code: 49439 Present Symptoms Lower Extremity Pain: Bilateral BILATERAL: Imaging reveals a patent deep venous system bilaterally. There is no evidence of thrombus within the common femoral, superficial femoral, popliteal or tibial segments. The greater saphenous veins are within normal limits. Doppler indicates normal spontaneous flow within these segments.
== END 2019-03-06 10:53 | disposition home health service (06) | DRG 690 ==
LOC: 4E 23:24
DX: N39.0 Urinary tract infection, site not specified (principal); E23.0 Hypopituitarism; E11.9 Type 2 diabetes mellitus without complications; I10 Essential (primary) hypertension; E78.00 Pure hypercholesterolemia, unspecified; B96.20 Unspecified Escherichia coli [E. coli] as the cause of diseases classified elsewhere; Z16.12 Extended spectrum beta lactamase (ESBL) resistance; M06.9 Rheumatoid arthritis, unspecified; N12 Tubulo-interstitial nephritis, not specified as acute or chronic; N20.0 Calculus of kidney; R11.2 Nausea with vomiting, unspecified; Z79.84 Long term (current) use of oral hypoglycemic drugs
CPT/HCPCS: 36415; 71045; 71250; 76770; 80048; 80053; 81001; 82962; 83036; 83735; 83880; 84100; 85025; 85610; 85651; 85730; 86140; 87040; 87086; 87181; 93970; 94640; 94664; J1815; J2405; J7620; J8499